=== PATIENT | male | born 1940 | race Caucasian/White ===

== ENCOUNTER → 2016-12-13 | Outpatient (CLI) | payer MEDICARE ==
[2016-12-13 07:10] LABS: MEAN CORPUSCULAR HEMOGLOBIN 30.9 pg (27.0-33.0); MEAN CORPUSCULAR HGB CONC 33.7 g/dl (32.0-36.5); MEAN CORPUSCULAR VOLUME 91.5 fl (80.0-96.0); WHITE BLOOD COUNT 7.2 K/mm3 (4.0-10.0)
[2016-12-13 07:35] LABS: ALBUMIN 3.6 GM/DL (3.2-5.2); ALKALINE PHOSPHATASE 65 U/L (45-117); ALT/SGPT 26 U/L (12-78); ANION GAP 7 MEQ/L (8-16); AST/SGOT 20 U/L (15-37); BILIRUBIN,TOTAL 0.6 MG/DL (0.2-1.0); BLOOD UREA NITROGEN 15 MG/DL (7-18); CALCIUM LEVEL 8.4 MG/DL (8.8-10.2); CARBON DIOXIDE LEVEL 30 MEQ/L (21-32); CHLORIDE LEVEL 106 MEQ/L (98-107); CHOLESTEROL LEVEL 112 MG/DL (<200); CREATININE FOR GFR 0.94 MG/DL (0.70-1.30); GLOMERULAR FILTRATION RATE > 60.0 (>42); GLUCOSE, FASTING 114 MG/DL (83-110); MAGNESIUM LEVEL 2.1 MG/DL (1.8-2.4); POTASSIUM SERUM 3.9 MEQ/L (3.5-5.1); SODIUM LEVEL 143 MEQ/L (136-145); TOTAL PROTEIN 7.2 GM/DL (6.4-8.2); TRIGLYCERIDES LEVEL 175 MG/DL (<150)
== END ==
LOC: M LAB 06:20
PROVIDERS: ATTEND Physician Assistant
DX: E78.00 Pure hypercholesterolemia, unspecified (principal); I10 Essential (primary) hypertension; I47.1 Supraventricular tachycardia

== ENCOUNTER 2017-02-06 09:16 | Emergency (ER) | payer MEDICARE ==
[~2017-02-06] VITALS: Ht 182.9 cm; Wt 90.7 kg
[2017-02-06] MEDS ORDERED: PHENYLEPHRINE 1% NASAL DROP 30 ML ONE (09:45)
[2017-02-06] MEDS ORDERED: LISI10TA4 (09:48)
[2017-02-06] MEDS ORDERED: TRAV04OPD (09:48)
[2017-02-06] MEDS ORDERED: DIGO0.25 (09:48)
[2017-02-06] MEDS ORDERED: SIMV20TA2 (09:49)
[2017-02-06] MEDS ORDERED: ATEN25TA (09:49)
[2017-02-06 11:42] LABS: BASO % 0.4 % (0.0-1.0); EOS # 0.1 K/mm3 (0.0-0.50); EOS % 1.4 % (0.0-3.0); LARGE UNSTAINED CELL # 0.2 K/mm3 (0.0-0.4); LARGE UNSTAINED CELL % 1.7 % (0.0-4.0); LYMPH # 1.4 K/mm3 (1.5-4.5); MEAN CORPUSCULAR HEMOGLOBIN 30.4 pg (27.0-33.0); MEAN CORPUSCULAR HGB CONC 33.7 g/dl (32.0-36.5); MONO # 0.7 K/mm3 (0.0-0.8); MONO % 7.8 % (0.0-5.0); NEUTROPHILS # 7.1 K/mm3 (1.8-7.7); NEUTROPHILS % 75.6 % (36.0-66.0); PLATELET COUNT, AUTOMATED 150 k/mm3 (150-450); RED CELL DISTRIBUTION WIDTH 13.9 % (11.5-14.5); WHITE BLOOD COUNT 9.4 K/mm3 (4.0-10.0)
[2017-02-06 11:47] LABS: INR 1.12
[2017-02-06 11:55] LABS: ANION GAP 9 MEQ/L (8-16); BLOOD UREA NITROGEN 18 MG/DL (7-18); CALCIUM LEVEL 8.4 MG/DL (8.8-10.2); CARBON DIOXIDE LEVEL 27 MEQ/L (21-32); CHLORIDE LEVEL 108 MEQ/L (98-107); CREATININE FOR GFR 0.76 MG/DL (0.70-1.30); GLOMERULAR FILTRATION RATE > 60.0 (>42); GLUCOSE, FASTING 102 MG/DL (83-110); POTASSIUM SERUM 3.9 MEQ/L (3.5-5.1); SODIUM LEVEL 144 MEQ/L (136-145)
[2017-02-06 12:59] VITALS: BP 144/83
[2017-02-06] MEDS ORDERED: METAL LOCK LOOP XX ONE (13:07)
== END 2017-02-06 13:00 | disposition home or self-care (01) ==
LOC: EDBD 09:16 → M ED 10:43
DX: R04.0 Epistaxis (principal)

== ENCOUNTER → 2017-04-19 | Outpatient (REF) ==
[~2017-04-19] MED LIST: ATEN25TA; DIGO0.25; LISI10TA4; SIMV20TA2; TRAV04OPD
[2017-04-19 10:56] LABS: MEAN CORPUSCULAR HEMOGLOBIN 30.4 pg (27.0-33.0); MEAN CORPUSCULAR VOLUME 92.2 fl (80.0-96.0)
[2017-04-19 11:09] LABS: ANION GAP 7 MEQ/L (8-16); BLOOD UREA NITROGEN 21 MG/DL (7-18); CALCIUM LEVEL 8.9 MG/DL (8.8-10.2); CARBON DIOXIDE LEVEL 30 MEQ/L (21-32); CHLORIDE LEVEL 106 MEQ/L (98-107); CREATININE FOR GFR 1.19 MG/DL (0.70-1.30); GLOMERULAR FILTRATION RATE > 60.0 (>42); GLUCOSE, FASTING 101 MG/DL (83-110); POTASSIUM SERUM 4.2 MEQ/L (3.5-5.1); SODIUM LEVEL 143 MEQ/L (136-145)
== END ==
PROVIDERS: ATTEND Internal Medicine
DX: I10 Essential (primary) hypertension (principal)

== ENCOUNTER → 2017-04-21 | Outpatient (REF) ==
[2017-04-21 13:11] LABS: MEAN CORPUSCULAR HEMOGLOBIN 30.6 pg (27.0-33.0); MEAN CORPUSCULAR HGB CONC 32.6 g/dl (32.0-36.5); WHITE BLOOD COUNT 9.8 K/mm3 (4.0-10.0)
== END ==
PROVIDERS: ATTEND Internal Medicine
DX: D72.89 Other specified disorders of white blood cells (principal)

== ENCOUNTER → 2017-04-26 | Outpatient (REF) ==
[2017-04-26 17:59] LABS: MEAN CORPUSCULAR HEMOGLOBIN 30.7 pg (27.0-33.0); MEAN CORPUSCULAR HGB CONC 33.3 g/dl (32.0-36.5); RED CELL DISTRIBUTION WIDTH 13.9 % (11.5-14.5); WHITE BLOOD COUNT 8.7 K/mm3 (4.0-10.0)
[2017-04-26 19:15] LABS: ANION GAP 6 MEQ/L (8-16); BLOOD UREA NITROGEN 19 MG/DL (7-18); CALCIUM LEVEL 8.6 MG/DL (8.8-10.2); CARBON DIOXIDE LEVEL 31 MEQ/L (21-32); CHLORIDE LEVEL 106 MEQ/L (98-107); CREATININE FOR GFR 1.03 MG/DL (0.70-1.30); GLOMERULAR FILTRATION RATE > 60.0 (>42); GLUCOSE, FASTING 131 MG/DL (83-110); POTASSIUM SERUM 3.4 MEQ/L (3.5-5.1); SODIUM LEVEL 143 MEQ/L (136-145)
== END ==
PROVIDERS: ATTEND Internal Medicine
DX: I10 Essential (primary) hypertension (principal)

== ENCOUNTER → 2017-07-04 | Outpatient (CLI) | payer MEDICARE ==
[2017-07-04 07:21] LABS: ALBUMIN 3.8 GM/DL (3.2-5.2); ALBUMIN/GLOBULIN RATIO 1.06 (1.00-1.93); ALKALINE PHOSPHATASE 75 U/L (45-117); ALT/SGPT 20 U/L (12-78); ANION GAP 5 MEQ/L (8-16); AST/SGOT 16 U/L (15-37); BILIRUBIN,TOTAL 0.4 MG/DL (0.2-1.0); BLOOD UREA NITROGEN 11 MG/DL (7-18); CALCIUM LEVEL 8.7 MG/DL (8.8-10.2); CARBON DIOXIDE LEVEL 30 MEQ/L (21-32); CHLORIDE LEVEL 108 MEQ/L (98-107); CREATININE FOR GFR 1.01 MG/DL (0.70-1.30); GLOMERULAR FILTRATION RATE > 60.0 (>42); GLUCOSE, FASTING 116 MG/DL (83-110); MAGNESIUM LEVEL 2.1 MG/DL (1.8-2.4); POTASSIUM SERUM 3.8 MEQ/L (3.5-5.1); SODIUM LEVEL 143 MEQ/L (136-145); TOTAL PROTEIN 7.4 GM/DL (6.4-8.2)
== END ==
LOC: M LAB 06:13
PROVIDERS: ATTEND Physician Assistant
DX: I10 Essential (primary) hypertension (principal); I47.1 Supraventricular tachycardia; E78.2 Mixed hyperlipidemia

== ENCOUNTER 2017-11-15 02:49 | Emergency (ER) | payer MEDICARE ==
[2017-11-15] MEDS: COCAINE 4% TOP SOLN 4 ML VIAL TOP ×2 (04:00→04:45)
== END 2017-11-15 05:37 | disposition home or self-care (01) ==
LOC: M ED 02:49
DX: R04.0 Epistaxis (principal); I10 Essential (primary) hypertension; E78.5 Hyperlipidemia, unspecified; Z87.891 Personal history of nicotine dependence; Z79.899 Other long term (current) drug therapy; Z88.5 Allergy status to narcotic agent; Z88.0 Allergy status to penicillin
CPT/HCPCS: 99283

== ENCOUNTER → 2019-03-06 | Outpatient (CLI) | payer MEDICARE ==
[~2019-03-06] MED LIST changes: +LOSA50TA88; +METO50TA7
--- NOTE | 2019-03-06 17:10 | REP ---
PET/CT: History: Initial staging malignant neoplasm of the esophagus. Comparisons: No comparison imaging available. TECHNIQUE: 55 minutes following the intravenous injection of a 9.69 mCi dose of F-18 FDG, three-dimensional PET scintigraphy is acquired from the skull base to the proximal thighs. Triplanar noncontrast CT scanning is acquired through the same anatomic range for attenuation correction, and image registration with scan parameters optimized to minimize radiation exposure to the patient. PET scintigraphy and CT datasets were fused and displayed on a workstation with multiplanar and projection display capability. PET/CT Findings: There is an elongate hypermetabolic circumferential lesion in the esophagus producing mural thickening. Maximum standard uptake value within this is 19.56. The span of hypermetabolic mural thickening measures 14.3 cm in craniocaudal span. There is a right subcarinal hypermetabolic adenopathy adjacent to the esophageal lesion. There is a small focus of hypermetabolic uptake in the distal esophagus away from this lesion which may be normal mucosal uptake, 3.38. However, there is a periaortic para-esophageal lymph node at the diaphragmatic hiatus, which is normal in size. It demonstrates mildly prominent uptake, maximum SUV value 2.2. No other upper abdominal hypermetabolic adenopathy is seen. There is a hypermetabolic liver lesion in the left lobe with a maximum standard uptake value 8.43. No other definite hypermetabolic liver lesion is seen. A no other abnormal hypermetabolic uptake is seen in the abdomen or pelvis. No abnormal pulmonary parenchymal uptake is seen. There is a hypermetabolic normal-sized lymph node in the left supraclavicular neck with maximum standard uptake value 4.82. Head and neck soft tissues are otherwise unremarkable. There is a hypermetabolic vertebral body lesion at the T7 vertebral body centrally. Maximum standard uptake value is 11.6. This is compatible with a skeletal metastasis. There are also two metastatic hypermetabolic foci in the right iliac bone. A small lesion in the iliac crest demonstrates maximum SUV value of 6.3. A slightly larger lesion in the right iliac bone opposite the superior aspect of the SI joint demonstrates a maximum standard uptake value of 8.94. Impression: The known large esophageal malignancy is quite hypermetabolic. There is evidence of paraesophageal/subcarinal adenopathy, possible hypermetabolic periesophageal adenopathy at the diaphragmatic hiatus, a left lobe liver lesion, and a small left supraclavicular neck snehal focus is seen. There are three skeletal hypermetabolic foci as well consistent with bony metastases. Electronically Signed by Clint Roberts MD 03/06/2019 05:22 P
== END ==
LOC: M PLARAD 11:19
PROVIDERS: ATTEND Surgery
DX: C15.5 Malignant neoplasm of lower third of esophagus (principal)
CPT/HCPCS: 78815; A9552

== ENCOUNTER 2019-03-12 22:50 | Emergency (ER) | payer MEDICARE ==
[~2019-03-12] VITALS: Ht 182.9 cm; Wt 75.0 kg
[~2019-03-12 22:50] MED LIST changes: -LOSA50TA88; +LOSA50TA88 PO; -METO50TA7; +METO50TA7 PO; -SIMV20TA2; +SIMV20TA2 PO
[2019-03-12 23:16] LABS: BASO # 0.1 10^3/uL (0.0-0.2); BASO % 0.5 % (0.0-1.0); EOS # 0.2 10^3/uL (0.0-0.50); EOS % 1.8 % (0.0-3.0); HEMATOCRIT 44.2 % (42.0-52.0); HEMOGLOBIN 14.6 g/dl (13.5-17.5); LYMPH # 1.9 10^3/uL (1.5-4.5); LYMPH % 19.6 % (24.0-44.0); MEAN CORPUSCULAR HEMOGLOBIN 30.3 pg (27.0-33.0); MEAN CORPUSCULAR VOLUME 91.7 fl (80.0-96.0); MONO # 1.1 10^3/uL (0.0-0.8); MONO % 11.2 % (0.0-5.0); NEUTROPHILS # 6.3 10^3/uL (1.8-7.7); NEUTROPHILS % 66.6 % (36.0-66.0); PLATELET COUNT, AUTOMATED 184 10^3/uL (150-450); RED BLOOD COUNT 4.82 10^6/uL (4.30-6.10); WHITE BLOOD COUNT 9.4 10^3/uL (4.0-10.0)
[2019-03-12 23:27] LABS: INR 0.95; PARTIAL THROMBOPLASTIN TIME 33.3 SECONDS (25.4-37.6); PROTHROMBIN TIME 12.8 SECONDS (12.1-14.4)
[2019-03-13] MEDS ORDERED: DIGO0.12 PO (00:41)
[2019-03-13] MEDS ORDERED: ZYLO300T6 PO (00:41)
[2019-03-13] MEDS ORDERED: SUCR1TAB56 (00:41)
[2019-03-13] MEDS ORDERED: METF500T13 PO (00:41)
[2019-03-13 02:12] VITALS: BP 146/85
[2019-03-13] MEDS ORDERED: ASPI81TA85 PO (08:54)
[2019-03-13] MEDS ORDERED: COLA100C5 PO (08:54)
[2019-03-13] MEDS ORDERED: DONETAB5 PO (09:07)
[2019-03-13] MEDS ORDERED: AMLO5TAB6 PO (09:07)
== END 2019-03-13 02:14 | disposition home or self-care (01) ==
LOC: M ED 22:50
DX: R04.0 Epistaxis (principal); C15.9 Malignant neoplasm of esophagus, unspecified; E11.9 Type 2 diabetes mellitus without complications; I10 Essential (primary) hypertension; C79.89 Secondary malignant neoplasm of other specified sites; C78.7 Secondary malignant neoplasm of liver and intrahepatic bile duct; C79.51 Secondary malignant neoplasm of bone; E78.5 Hyperlipidemia, unspecified; Z95.2 Presence of prosthetic heart valve; Z88.0 Allergy status to penicillin; Z88.5 Allergy status to narcotic agent; Z79.899 Other long term (current) drug therapy; Z79.84 Long term (current) use of oral hypoglycemic drugs; Z79.01 Long term (current) use of anticoagulants; Z85.46 Personal history of malignant neoplasm of prostate

== ENCOUNTER → 2019-03-13 | Outpatient (CLI) | payer MEDICARE ==
[~2019-03-13] MED LIST changes: +AMLO5TAB6 PO; +ASPI81TA85 PO; +COLA100C5 PO; +DIGO0.12 PO; +DONETAB5 PO; +GASTROGRAFIN SOLUTION 30ML (Q9963) As Ordered ONE; +ISOVUE-370 76% 100ML VIAL (Q9967) As Ordered ONE; +METF500T13 PO; +SUCR1TAB56; +ZYLO300T6 PO
--- NOTE | 2019-03-13 17:56 | REP ---
CT chest with IV contrast: History: Malignant neoplasm distal third of the esophagus Comparison chest CT study September 03, 2005. Comparison PET-CT study March 06, 2019. CT contrast dose: 100 ml of intravenous Isovue 370. CT findings: The proximal third of the thoracic esophagus is dilated and filled with ingested material. There is a nodular virtually annular neoplastic stricture in the esophagus beginning at the at the subcarinal level and extending for approximately 6 cm distally with nodular circumferential thickening and narrowing. There is a small quantity of ingested oral contrast in the distal esophageal lumen. Oral contrast is seen filling much of the stomach. There is an enlarged para-esophageal lymph node at the subcarinal level. This lymph node measures 2.6 x 1.7 x 3.3 cm. There is a hilar lymph node in the right hilus measuring 8 mm in short axis dimension. Normal sized superior paratracheal lymph nodes are seen. A normal sized left supraclavicular node is seen. No definite mediastinal adenopathy is seen apart from the para-esophageal nodes. There is a somewhat spherical lymph node adjacent to the gastroesophageal junction at the diaphragmatic hiatus. This lymph node measures 11 mm in greatest diameter and is seen to show mildly increased uptake on PET CT. No celiac axis adenopathy is observed. There is a low-density lesion in the left lobe of the liver measuring 1.8 cm consistent with a metastasis. Lung window settings demonstrate a benign everett fissural nodule along the minor fissure. No suspicious pulmonary nodule is appreciated. No mass or infiltrate is seen. No pleural or pericardial effusion is noted. There is a small radiolucency in the T7 vertebral body corresponding to the area of increased uptake on recent PET CT. Impression: There is an elongate malignant stricture in the middle third of the thoracic esophagus extending over at least 6 cm in craniocaudal span. There is a para esophageal enlarged lymph node and an equivocal node is seen at the GE junction and the para-esophageal soft tissues. This there is evidence of partial thoracic esophageal obstruction. A low-density lesion suspicious for metastasis is seen in the left lobe of the liver. There is a small low-density lesion in the T7 vertebral body. Electronically Signed by Clint Roberts MD 03/13/2019 08:16 P
--- NOTE | 2019-03-14 07:28 | REP ---
CT abdomen with IV and oral contrast: History: Malignant neoplasm of the distal esophagus. Comparison CT abdomen March 18, 2016. Comparison PET-CT study March 06, 2019. CT contrast dose: 100 ml of intravenous Isovue [address] findings: Preliminary digital pharmacology associate radiograph shows an unremarkable bowel gas pattern. There are calcifications projecting in the right upper quadrant. On axial CT images these calcifications on a from the pharmacology associate view are noted within the liver consistent with granuloma. There is a 18 mm low density lesion in the left lobe of the liver corresponding with the hyper metabolic lesion on PET-CT. This consistent with a metastasis. There is a tiny low density area near the dome of the diaphragm, 7 mm in diameter, in the right lobe medially. A granuloma is visible previously but neither of these low density lesions is visible on the [address] study. No other focal liver lesion is appreciated. There are small gallstones in the neck of the gallbladder. No wall thickening is seen. Common bile duct is not dilated. No intrahepatic ductal dilation is observed. There is a 1.0 cm cyst in the body of the pancreas which is unchanged from 2016 prior study. In addition, there is a 15 mm nodule along the inferior margin of the pancreatic tail. This is of uncertain significance. This area is not hypermetabolic on PET-CT. And intrapancreatic splenule could have this appearance. This is visible in retrospect on multiple prior CT studies with April 2008. It is not changed. This felt to be a benign lesion. No celiac axis or periportal adenopathy is appreciated. No retroperitoneal adenopathy is seen. The adrenal glands show no evidence of mass lesion. The kidneys contain small cortical cysts. There is a large calculus in the left renal pelvis measuring 1.5 cm in greatest diameter. No hydronephrosis is seen. Small and large intestinal bowel loops are unremarkable. No bony destructive lesion is seen. Impression: 1. There is a 18 mm presumed metastasis in the left lobe of the liver which is seen on recent PET-CT to be hypermetabolic. There is an additional 7 mm low density lesion in the right lobe of the liver. 2. Stable pancreatic cyst and nodule. There are some calcifications in the pancreatic head consistent with chronic pancreatitis. 3. There is a 14 mm calculus in the left renal pelvis without hydronephrosis. Electronically Signed by Clint Roberts MD 03/14/2019 09:09 A
== END ==
LOC: M RAD 11:52
PROVIDERS: ATTEND Surgery
DX: C15.5 Malignant neoplasm of lower third of esophagus (principal); N28.1 Cyst of kidney, acquired; K80.20 Calculus of gallbladder without cholecystitis without obstruction; K86.2 Cyst of pancreas; K76.89 Other specified diseases of liver
CPT/HCPCS: 71260; 74160; Q9963; Q9967

== ENCOUNTER → 2019-03-16 | Outpatient (CLI) | payer MEDICARE ==
[~2019-03-16] MED LIST changes: +BUPIVACAINE HCL 0.5% 10 ML VIAL As Ordered ONE; +CLINDAMYCIN 600 MG/50 ML PREMIX BAG As Ordered ONE; -GASTROGRAFIN SOLUTION 30ML (Q9963) As Ordered ONE; -ISOVUE-370 76% 100ML VIAL (Q9967) As Ordered ONE; +LIDOCAINE 2% MDV 20 ML VIAL As Ordered ONE; +ceFAZolin 1GM INJ (J0690 PER 500MG) As Ordered ONE
--- NOTE | 2019-03-28 10:57 | REPIR ---
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 SURGEON: Dr. Clau Box DIRECTOR RADIATION ONCOLOGY: None. ANESTHESIA: Local ESTIMATED BLOOD LOSS: Minimal. IV FLUIDS: 50 mL. FLUORO TIME: 0.1 minutes. COMPLICATIONS: None. DRAINS: None. SPECIMENS: None IMPLANTS: Port-A-Cath. INDICATION: The patient is an 78-year-old male with esophageal cancer with bone and liver metastases who requires access for chemotherapy. The patient will undergo placement of a Port-A-Cath. Risks, benefits and alternative options were discussed with the patient. DESCRIPTION OF PROCEDURE: The patient was taken to the angiography suite, placed supine on the angiography room table and then prepped and draped in a standard surgical fashion. The right internal jugular was cannulated with a micropuncture needle using ultrasound guidance. The port was placed in the chest and the catheter tunneled from the port to the entry site of the right internal jugular vein. The internal jugular vein was dilated under fluoroscopic guidance and the introducer sheath was positioned. The catheter was advanced through the introducer sheath in position with the tip in the superior vena cava right atrial junction. Port was then cannulated, noted to aspirate easily and flushed with heparinized saline. The incisions were closed using #3-0 Monocryl in inverted interrupted fashion. Steri-Strips and dressings were applied. The patient tolerated the procedure well. All instrument, sponge and needle counts were correct at the end of the case. There were no complications. Dr. Box was present for directed the entire case. The patient was transferred to the holding and subsequently discharged in stable condition.
== END | disposition home or self-care (01) ==
LOC: M IRPRO 10:56
PROVIDERS: ATTEND Internal Medicine Medical Oncology
DX: C15.9 Malignant neoplasm of esophagus, unspecified (principal); C78.7 Secondary malignant neoplasm of liver and intrahepatic bile duct; C79.51 Secondary malignant neoplasm of bone
CPT/HCPCS: 36561; 77001; C1788; C1894

== ENCOUNTER → 2019-04-06 | Outpatient (CLI) | payer MEDICARE ==
[~2019-04-06] MED LIST changes: -BUPIVACAINE HCL 0.5% 10 ML VIAL As Ordered ONE; -CLINDAMYCIN 600 MG/50 ML PREMIX BAG As Ordered ONE; +E-Z-GAS II EFFERVESCENT PACKET (SODIUM BICARB./CITRIC ACID/SIMETHICONE) As Ordered ONE; +E-Z-HD 98% w/w 340GM SUSP BTL As Ordered ONE; +E-Z-PAQUE 96% w/w SUSP 176GM BTL As Ordered ONE; -LIDOCAINE 2% MDV 20 ML VIAL As Ordered ONE; -ceFAZolin 1GM INJ (J0690 PER 500MG) As Ordered ONE
--- NOTE | 2019-04-06 17:26 | REP ---
Esophagram The procedure was performed under the direct supervision of Dr. Roberts. The images were reviewed with Dr. Roberts. A single view PA chest x-ray is submitted as a mail carrier film. The superior mediastinal structures are midline. The heart size is within normal limits. The lungs are clear. The patient is status post median sternotomy and valve replacement. There is an [id number] in place with the tip in the superior vena cava. Liquid barium was administered in the right and left lateral recumbent positions. During the oral and pharyngeal stages of deglutition there is laryngeal penetration. There is a tight stricture in the mid esophagus with elongated wall thickening in the anterior wall of the esophagus. The stricture measures approximately 2.3 cm in length and 2.2 mm at its narrowest. This causes moderate esophageal obstruction. There is some contrast seen advancing distally into the stomach. Impression: 1. There is laryngeal penetration or area 2. There is a stricture in the mid esophagus which causes moderate esophageal obstruction. This measures 2.3 cm in length and 2.2 mm at its narrowest. There is also elongated wall thickening in the anterior wall of the esophagus proximally. 1.3 minutes of fluoro time was utilized for this procedure. Reviewed by THALIA Tavares 04/06/2019 01:19 P Electronically Signed by Clint Roberts MD 04/06/2019 05:17 P
== END ==
LOC: M RAD 08:28
PROVIDERS: ATTEND Internal Medicine Gastroenterology
DX: K22.2 Esophageal obstruction (principal)

== ENCOUNTER 2019-04-11 10:07 | Day surgery (SDC) | payer MEDICARE ==
[~2019-04-11] VITALS: Ht 182.9 cm; Wt 68.4 kg
[~2019-04-11 10:07] MED LIST changes: -E-Z-GAS II EFFERVESCENT PACKET (SODIUM BICARB./CITRIC ACID/SIMETHICONE) As Ordered ONE; -E-Z-HD 98% w/w 340GM SUSP BTL As Ordered ONE; -E-Z-PAQUE 96% w/w SUSP 176GM BTL As Ordered ONE; +LR 1,000 ML IV ONE
[2019-04-11] MEDS ORDERED: PROPOFOL 200 MG/20 ML VIAL As Ordered ONE (12:23)
[2019-04-11] MEDS ORDERED: LIDOCAINE 2% INJ 100 MG/5 ML SDV (FOR ANES.) As Ordered ONE (12:23)
[2019-04-11] MEDS ORDERED: CONRAY-60 60% 50ML VIAL (Q9961) As Ordered ONE (12:56)
[2019-04-11] MEDS ORDERED: ISOVUE-300 61% 50ML VIAL (Q9967) As Ordered ONE (12:57)
[2019-04-11] MEDS ORDERED: ROCURONIUM BROMIDE 50 MG/5 ML VIAL As Ordered ONE (12:59)
[2019-04-11] MEDS ORDERED: PHENYLephrine HCL 500 MCG/5 ML (100MCG/ML) SYRINGE (J2370) As Ordered ONE (13:06)
[2019-04-11] MEDS ORDERED: ONDANSETRON 4MG/2ML VIAL (J2405) IV PRN (14:15)
[2019-04-11] MEDS ORDERED: LR 1,000 ML IV SCH (14:15)
--- NOTE | 2019-04-11 14:21 | ROOR ---
Patient Name: Emmett Whitmore Procedure Date: 04/11/2019 12:27 PM Date of : 1940 Age: 78 Room: Main OR Gender: Male Note Status: Design Director Override Procedure: Upper GI endoscopy Indications: For palliative stenting of stenosing neoplasm of the esophagus, For dilation and stenting of esophageal stenosis Providers: Shiv Arroyo MD Referring MD: BOB MASSEY MD Requesting Provider: Medicines: Monitored Anesthesia Care Complications: No immediate complications. Procedure: Pre-Anesthesia Assessment: - Prior to the procedure, a History and Physical was performed, and patient medications and allergies were reviewed. The patient is competent. The risks and benefits of the procedure and the sedation options and risks were discussed with the patient. All questions were answered and informed consent was obtained. Patient identification and proposed procedure were verified by the physician, the nurse and the anesthesiologist in the procedure room. Mental Status Examination: alert and oriented. Airway Examination: normal oropharyngeal airway and neck mobility. Respiratory Examination: clear to auscultation. CV Examination: normal. Prophylactic Antibiotics: The patient does not require prophylactic antibiotics. Prior Anticoagulants: The patient has taken no previous anticoagulant or antiplatelet agents. ASA Grade Assessment: III - A patient with severe systemic disease. After reviewing the risks and benefits, the patient was deemed in satisfactory condition to undergo the procedure. The anesthesia plan was to use monitored anesthesia care (MAC). Immediately prior to administration of medications, the patient was re-assessed for adequacy to receive sedatives. The heart rate, respiratory rate, oxygen saturations, blood pressure, adequacy of pulmonary ventilation, and response to care were monitored throughout the procedure. The physical status of the patient was re-assessed after the procedure. The Endoscope was introduced through the mouth, and advanced to the second part of duodenum. The upper GI endoscopy was accomplished without difficulty. The patient tolerated the procedure well. The Endoscope was introduced through the mouth, and advanced to the lower third of esophagus. Findings: A large, ulcerating mass with no bleeding and stigmata of recent bleeding was found in the middle third of the esophagus, 28 to 38 cm from the incisors. The mass was partially obstructing and circumferential. This was stented with [employer] [place] covered metal stent [id number] under fluoroscopic guidance, proximal margin at 26 cm and distal margin at 38 cm from the incisors. A TTS dilator was passed through the scope. Dilation with an 8-9-10 mm balloon dilator was performed to 10 mm under fluoroscopic guidance. The dilation site was examined following endoscope reinsertion and showed moderate improvement in luminal narrowing. No gross lesions were noted in the entire examined stomach. Patchy mild inflammation characterized by erythema and granularity was found in the duodenal bulb and in the second portion of the duodenum. Impression: - Partially obstructing, malignant esophageal tumor was found in the middle third of the esophagus. Prosthesis placed. Dilated. - No gross lesions in the stomach. - Duodenitis. - No specimens collected. Recommendation: - Patient has a contact number available for emergencies. The signs and symptoms of potential delayed complications were discussed with the patient. Return to normal activities tomorrow. Written discharge instructions were provided to the patient. - Full liquid diet for 2 days, then advance as tolerated to mechanical soft diet. - Use Prilosec (omeprazole) 40 mg PO Daily - to be taken ignition specialist on empty stomach for 8 weeks. - Follow an antireflux regimen. - Return to referring physician as previously scheduled. - Telephone GI clinic if symptomatic in 2 weeks. - Return to GI clinic if persistent symptoms or new symptoms. - Return to primary care physician. Shiv Arroyo MD Shiv Arroyo MD 04/11/2019 2:20:49 PM Electronically signed by Shiv Arroyo MD Number of Addenda: 0 Note Initiated On: 04/11/2019 12:27 PM Estimated Blood Loss: Estimated blood loss was minimal.
--- NOTE | 2019-04-11 15:24 | REP ---
C-ARM VIEWS OF THE THORAX: Multiple C-arm views of the thorax during procedure of the esophagus demonstrates catheter manipulation and visualization of a scope. 19 seconds of fluoroscopy time is utilized. Electronically Signed by Karl Leigh MD 04/12/2019 12:33 P
[2019-04-11 15:55] VITALS: BP 168/92
== END 2019-04-11 16:43 | disposition home or self-care (01) ==
LOC: M SDC 10:07
PROVIDERS: ATTEND Internal Medicine Gastroenterology
DX: C15.5 Malignant neoplasm of lower third of esophagus (principal); I10 Essential (primary) hypertension; E78.5 Hyperlipidemia, unspecified; K21.9 Gastro-esophageal reflux disease without esophagitis; K22.2 Esophageal obstruction; K29.80 Duodenitis without bleeding; Z85.46 Personal history of malignant neoplasm of prostate; Z92.21 Personal history of antineoplastic chemotherapy; Z92.3 Personal history of irradiation; Z79.899 Other long term (current) drug therapy; Z79.82 Long term (current) use of aspirin; Z87.891 Personal history of nicotine dependence; Z88.0 Allergy status to penicillin; Z88.5 Allergy status to narcotic agent
CPT/HCPCS: 43266; 76000; 96365; C1874; J1642; J2370

== ENCOUNTER 2019-04-18 13:21 | Outpatient (RCR) | payer MEDICARE ==
[2019-03-13 08:45] VITALS: BP 137/81
[2019-03-13 10:00] LABS: HEMATOCRIT 43.5 % (42.0-52.0); HEMOGLOBIN 14.4 g/dl (13.5-17.5); LYMPH % 16.7 % (24.0-44.0); MEAN CORPUSCULAR HEMOGLOBIN 30.9 pg (27.0-33.0); MEAN CORPUSCULAR HGB CONC 33.1 g/dl (32.0-36.5); MEAN CORPUSCULAR VOLUME 93.3 fl (80.0-96.0); NEUTROPHILS # 6.5 10^3/uL (1.8-7.7); NEUTROPHILS % 74.8 % (36.0-66.0); RED BLOOD COUNT 4.66 10^6/uL (4.30-6.10); WHITE BLOOD COUNT 8.7 10^3/uL (4.0-10.0)
[2019-03-13 10:37] LABS: BLOOD UREA NITROGEN 11 MG/DL (6-20); CALCIUM LEVEL 9.2 MG/DL (8.5-10.2); CARBON DIOXIDE LEVEL 30 MEQ/L (23-31); CHLORIDE LEVEL 101 MMOL/L (98-107); CREATININE FOR GFR 0.95 MG/DL (0.90-1.30); GLOMERULAR FILTRATION RATE > 60.0 (>35); GLUCOSE, FASTING 109 MG/DL (70-105); POTASSIUM SERUM 3.8 MMOL/L (3.5-5.1); SODIUM LEVEL 139 MMOL/L (135-145); TOTAL PROTEIN 6.7 GM/DL (6.4-8.3)
[2019-03-15 08:23] VITALS: BP 143/87
--- NOTE | 2019-03-15 08:35 | MEDONC ---
MEDICAL ONCOLOGY INITIAL VISIT: DATE OF SERVICE: 03/13/2019. DIAGNOSIS: Emmett Morejon is an 78-year-old man with multiple medical problems. 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 Referred by Noah Horvath MD for medical oncology management. HISTORY OF PRESENT ILLNESS: At baseline Mr. 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 He has Parkinson's disease, remote history of 10 pack-year smoking, status post AVR in 2017. For 6 months he gradually developed dysphagia to liquids and solids. He has had a small associated weight loss. A barium esophagram 02/07/2019 showed a mid esophageal apple core lesion, measuring 3.9 cm at the level of the 10th thoracic vertebrae and a small hiatal hernia. Noncontrast abdomen and pelvis CT showed no mass. He saw Dr. Su who had referred who referred him for upper endoscopy and ultrasound, noting his frail status. He has dementia as well. EGD biopsy 02/16/2019 confirms poorly differentiated adenocarcinoma, HER2/jacinta negative, noting a mid esophageal mass. PET CT 03/06/2019 showed multiple hypermetabolic foci includin cm craniocaudal circumferential esophageal lesion SUV 19, right subcarinal lymph node adjacent to the lesion, paraesophageal node at the diaphragmatic hiatus, left liver focus of uptake SUV 8, left supraclavicular focus SUV 4.8, and T7 and right iliac foci with high SUV consistent with distant metastatic disease. Mr. Whitmore is here today accompanied by his son, Emmett and brother and Reynaldo. He had seen Dr. Montana last week and radiation was recommended. Primary care doc is Tasneem Gutierrez. Mr. Whitmore complains of difficulty swallowing solids and is using Ensure. He still gets some mucus collection and needs to cough them up. He acknowledges slight weight loss. Denies sweats, fevers, headache, visual disturbance, shortness of breath, cough. He gets occasional leg swelling in the morning but this resolved. His brother and son acknowledge memory issues. He denies hemoptysis or hematemesis. PAST MEDICAL HISTORY: Dementia, Parkinson's disease, hypertension, aortic insufficiency. Type 2 diabetes, gout. PAST SURGICAL HISTORY: Bioprosthetic AVR 2017, herniorrhaphy. ALLERGIES: [facility], Penicillin, morphine. MEDICATIONS: Allopurinol 300 mg daily, amlodipine 5 mg daily, aspirin 81 mg daily, digoxin 125 mcg daily, docusate 100 mg daily, benazepril 5 mg daily, losartan 50 mg daily, lisinopril 10 mg daily, metformin 100 mg twice a day, metoprolol tartrate 50 mg daily, simvastatin 20 mg daily, sucralfate 1 gram daily, travoprost solution drops. ion drops please go back to SOCIAL HISTORY: The patient is an ever smoker. 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 FAMILY HISTORY: A brother of lung cancer was a smoker. No other malignancy. REVIEW OF SYSTEMS: 12 system written review completed by the patient. Positive for 15-pound weight loss, increased fatigue vision, vision changes, hearing loss, occasional exertional dyspnea, heartburn, urinary incontinence, loss of strength or memory increased thirst and fatigue. Remainder of 12 system review is negative. PHYSICAL EXAMINATION: Height 6 feet, weight 76 kg, BMI 23, temperature 97.2, blood pressure 137/81, heart rate 64, respiratory 18, O2 sat 97%. Patient is a tall robust appearing older gentleman with a somewhat still unmoving posture and occasionally making eye contact referring to his brother and son for some answers. Is a modestly good historian. Respiratory: Clear lungs to auscultation bilaterally anterior and posteriorly. No wheezes or rales. Cardiac: S1-S2, 2/6 systolic murmur. Abdomen: Soft, nontender, nondistended, no palpable hepatosplenomegaly. No mass. No epigastric tenderness. Extremities: No edema. Lymph nodes no palpable submandibular, cervical, supraclavicular or axillary adenopathy bilaterally. Musculoskeletal: No vertebral or sternal tenderness to percussion. LABS: WBC 8.7, hemoglobin 14, hematocrit 43, platelets 194. Differential unremarkable. Electrolytes normal. Liver functions normal. Albumin 4.0. CA19-9 30. IMPRESSION: Clinical stage IV, TXMXM1, poorly differentiated adenocarcinoma of esophagus involving mid distal esophageal lesion, regional adenopathy, bone and liver metastases low volume on PET. HER2 negative; PDL an MMR status unknown. RECOMMENDATIONS: 1. Obtain PD-L1 an MMR status on current pathology. 2. I spoke at length with Mr. Whitmore and his family about his current working diagnosis of stage IV esophageal cancer. I emphasized this is not curable; treatment is palliative aimed at minimizing symptoms and prolonging life. I was steph that his life expectancy is on the order of 1-2 years at most more and without treatment 6-12 months. Palliative chemotherapy could be as gentle as a single agent Taxol weekly to a as complex as chemo radiation. Given his other comorbidities and in particular parkinsonism putting him at some risk based on reduced in the axial rigidity and trouble with secretions, for aspiration pneumonia. I am somewhat concerned that toxicity of radiation might out way the benefit in the short-term and that systemic therapy might achieve the same end of shrinking the tumor allowing good swallowing and nourishment, reserving radiation as a salvage effort later. I spoke frankly to the patient and his family about these potential options and recommended no definitive plan be made until the case is discussed in tumor board, tomorrow when I can meet with Dr. Montana and the multidisciplinary team and discussed options. I am leaning toward palliative single or stool or double agent chemotherapy on a weekly treatment schedule such as carboplatin and Taxol or single-agent Taxol weekly attempting to resolve the dysphagia and allow nutrition. We turned attention to the possible need for a MediPort and possible need for percutaneous endoscopic gastrostomy tube. I answered the patient and family's questions about both of these. We agreed that we would meet up again later this week after tumor board discussion to finalize recommendations based on his preferences. Time statement 60 minutes spent [id number] with the patient more than 50% above the counseling, read explanation of the issues outlined above, answering the patient's questions. Electronically Signed by Ella Turcios MD 03/16/2019 02:38 P DD: Ella Turcios MD 03/13/2019 06:02 P DT: [email or web address] 03/15/2019 08:09 A CC: MD Noah Malin MD
--- NOTE | 2019-03-19 10:16 | MEDONC ---
MEDICAL ONCOLOGY FOLLOWUP DATE OF SERVICE: 03/15/2019 DIAGNOSIS: Stage IV, TxNxM1, poorly differentiated adenocarcinoma of esophagus involving mid - distal esophageal lesion, HER2/jacinta negative, with regional adenopathy, bone and liver metastases (low volume). PD-L1 and MMR status pending. ECOG performance status 1 to 2, closer to 1. OTHER MEDICAL PROBLEMS: Mild dementia, Parkinson disease, hypertension, aortic insufficiency, status post AVR, type 2 diabetes, gout. CURRENT THERAPY: Treatment planning underway. Mr. Whitmore returns after his initial visit earlier this week. Tumor board was held yesterday discussing his case. A solitary hypermetabolic liver and some thoracic and iliac hypermetabolic sites were seen on PET. In tumor board, we discussed starting palliative chemotherapy and reserving radiation for salvage treatment. PEG tube placement was also discussed but not strongly recommended up front. The entirety of today's visit was spent discussing the results of tumor board, treatment options, and answering the patient's and family's questions. First, I recommended combination chemotherapy with oxaliplatin and 5-FU as demonstrated to provide a rapid response and good quality of life with low toxicity in the elderly population. For the present, I would hold radiation to minimize radiation associated toxicity. 2. For this a Mediport would need to be placed. We can think about placing PEG tube soon, but already Mr. Whitmore has asserted that he does not want to use a PEG tube. My experience with patients who do not want to use PEG tubes is that they often do not and the time spent getting the PEG tube placed may not be worth the benefit if it is inimical to the patient. I reviewed risks, benefits, side effects of oxaliplatin and 5-FU, schedule as follows: Neuropathy, diarrhea, hand-foot syndrome, mild myelosuppression, nausea, possibility of hair thinning, possible hair loss. I explained how the MediPort is placed and that it would require a visit to a surgeon first followed by the procedure. I explained the use of continuous IV infusion pump for 24 hours. The schedule would be treatment every 14 days, with or without G-CSF support depending on WBC count. Mr. Whitmore, his brother and son had many astute questions, all which I answered to the best of my ability and they expressed satisfaction with these answers. I discussed alternatives for example no chemotherapy, or other regimens. It may take quite awhile to obtain PD-L1 results. I have checked with pathology at [facility] and this is not yet available. MMR results may be coming in soon. If immunotherapy is an option that makes sense, we could switch gears and plan for up front immunotherapy in combination with chemotherapy as a possibility but this may need to be a salvage option. We discussed goals of therapy to improve swallowing and quality of life through ability to eat and maintain weight, minimize problems with managing secretions. Another tumor board recommendation was to explore the possibility of a stent and I will contact GI about this. IMPRESSION: Stage IV, TxNxM1 esophageal adenocarcinoma, poorly differentiated, HER2/jacinta negative, MMR and PD-L1 status pending in an 78-year-old man, ECOG performance status 1 with Parkinson's disease, mild dementia, hypertension, aortic insufficiency, status post AVR, diabetes but with generally excellent quality of life prior to onset of esophageal obstruction symptoms. Labs are excellent. No renal insufficiency. No significant anemia. PLAN: 1. Written informed consent for oxaliplatin and 5-FU was obtained. If our plan changes of course we will revise consent. 2. MediPort placement as soon as possible. 3. Return to clinic to begin oxaliplatin / 5-FU q. 14 days as palliative first-line treatment for stage IV esophageal cancer. Time statement: 45 minutes spent [id number] with the patient, more than 50% involved in counseling regarding all of the issues detailed above. Electronically Signed by Ella Turcios MD 03/19/2019 05:18 P DD: Ella Turcios MD 03/15/2019 10:03 A DT: [email or web address] 03/19/2019 09:30 A CC: Tasneem Gutierrez MD
[2019-03-22 09:10] VITALS: BP 119/74
[2019-03-22 09:18] LABS: HEMATOCRIT 40.7 % (42.0-52.0); HEMOGLOBIN 13.4 g/dl (13.5-17.5); LYMPH % 11.2 % (24.0-44.0); MEAN CORPUSCULAR HEMOGLOBIN 30.9 pg (27.0-33.0); MEAN CORPUSCULAR HGB CONC 32.9 g/dl (32.0-36.5); MEAN CORPUSCULAR VOLUME 93.7 fl (80.0-96.0); NEUTROPHILS # 9.4 10^3/uL (1.8-7.7); RED BLOOD COUNT 4.34 10^6/uL (4.30-6.10); WHITE BLOOD COUNT 11.6 10^3/uL (4.0-10.0)
[2019-03-22 09:38] LABS: ALBUMIN 3.9 GM/DL (3.5-5.2); BLOOD UREA NITROGEN 11 MG/DL (6-20); CALCIUM LEVEL 9.3 MG/DL (8.5-10.2); CARBON DIOXIDE LEVEL 29 MEQ/L (23-31); CHLORIDE LEVEL 105 MMOL/L (98-107); CREATININE FOR GFR 0.85 MG/DL (0.90-1.30); GLUCOSE, FASTING 114 MG/DL (70-105); POTASSIUM SERUM 3.8 MMOL/L (3.5-5.1); SODIUM LEVEL 140 MMOL/L (135-145)
[2019-03-22 09:39] LABS: GLOMERULAR FILTRATION RATE > 60.0 (>35)
--- NOTE | 2019-03-23 10:07 | MEDONC ---
MEDICAL ONCOLOGY FOLLOWUP/TREATMENT VISIT DATE OF SERVICE: 03/22/2019 DIAGNOSIS: Stage IV, TxNxM1 poorly differentiated adenocarcinoma of esophagus involving mid-distal esophageal lesion, quite extensive, circumferential, HER2 negative with regional adenopathy, bone and liver metastases (low volume). MMR stable, PD-L1 status pending. ECOG performance status 1-2. OTHER MEDICAL PROBLEMS: Mild dementia. Parkinson's disease, moderate. Hypertension. Aortic insufficiency. Status post AVR. Type 2 diabetes. Gout. CURRENT THERAPY: Emmett is here to begin oxaliplatin/5-FU q. 14 days palliative systemic therapy. [facility] referral underway for potential stent placement. INTERIM HISTORY: Mr. Whitmore is here accompanied by his son, Emmett and brother Reynaldo. Mediport was placed. He is managing that okay. I talked to him about potential esophageal stent as one of the fastest ways for him to be able to begin swallowing again. He is having difficulties with regurgitation, appears to have a poor cough reflex likely secondary to some parkinsonism which involves fairly stiff posture, slow slight cogwheeling movements. He is nonetheless cheerful and ironic, joking frequently. He is trying his best with Boost, Ensure. We talked about using straw for thin liquids to avoid aspiration. We discussed PEG tube, but he has adamantly said he does not want that and my concern is taking time to have it placed and having him under use it with no success in achieving good nourishment. Dr. Arroyo of GI will see him this afternoon after his first chemotherapy treatment and yesterday I alerted him to the patient so he will have reviewed the films. If stenting is not feasible, will pursue PEG tube placement and PEG feeds. I reviewed again the current treatment plan involving oxaliplatin 85 mg per meter squared day 1, leukovorin 200 mg per meter squared day 1, and 5-FU 2600 mg per meter squared b.i.d. first 24 hours. The patient will return on day two over three to return his pump. Should he develop significant leukopenia will support with G-CSF. I reviewed potential risks, benefits and side effects including diarrhea, neuropathy, cold sensitivity. VITAL SIGNS: Weight is stable 76 kg, afebrile. Normal blood pressure. LABORATORY DATA: WBC 11, hemoglobin 13, hematocrit 40, platelets 211, creatinine 0.85, BUN 11, normal electrolytes, normal liver functions. 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 PLAN: 1. Day 1 cycle one oxaliplatin/5-FU today. 2. One week interval return for reassessment with labs and IV fluids. 3. IV fluids 1000 mL normal saline today given the patient's increasing difficulty with oral intake. 4. [facility] consult today for consideration for esophageal stent. TIME STATEMENT: 30 minutes was spent [id number] with the patient, more than 50% involved in counseling, reviewing particulars of the regimen, discussing nutrition, possible esophageal stent, PEG tube, answering the patient and his family's questions. Electronically Signed by Ella Turcios MD 03/26/2019 05:05 P DD: Ella Turcios MD 03/22/2019 04:27 P DT: [email or web address] 03/23/2019 09:54 A CC: MD Tasneem Kahn MD
[2019-03-29 10:06] LABS: HEMATOCRIT 44.2 % (42.0-52.0); HEMOGLOBIN 14.4 g/dl (13.5-17.5); LYMPH % 5.4 % (24.0-44.0); MEAN CORPUSCULAR HEMOGLOBIN 30.7 pg (27.0-33.0); MEAN CORPUSCULAR HGB CONC 32.6 g/dl (32.0-36.5); MEAN CORPUSCULAR VOLUME 94.2 fl (80.0-96.0); NEUTROPHILS # 26.7 10^3/uL (1.8-7.7); NEUTROPHILS % 87.4 % (36.0-66.0); RED BLOOD COUNT 4.69 10^6/uL (4.30-6.10)
[2019-03-29 10:07] LABS: WHITE BLOOD COUNT 30.5 10^3/uL (4.0-10.0)
[2019-03-29 10:15] VITALS: BP 148/95
[2019-03-29 10:18] LABS: ALBUMIN 3.8 GM/DL (3.5-5.2); BLOOD UREA NITROGEN 16 MG/DL (6-20); CALCIUM LEVEL 9.3 MG/DL (8.5-10.2); CARBON DIOXIDE LEVEL 28 MEQ/L (23-31); CHLORIDE LEVEL 103 MMOL/L (98-107); CREATININE FOR GFR 0.82 MG/DL (0.90-1.30); GLOMERULAR FILTRATION RATE > 60.0 (>35); GLUCOSE, FASTING 121 MG/DL (70-105); POTASSIUM SERUM 3.3 MMOL/L (3.5-5.1); SODIUM LEVEL 141 MMOL/L (135-145); TOTAL PROTEIN 6.9 GM/DL (6.4-8.3)
--- NOTE | 2019-04-02 08:33 | MEDONC ---
MEDICAL ONCOLOGY FOLLOWUP DATE OF SERVICE: 03/29/2019 DIAGNOSIS: Stage IV, TXNXM1, poorly differentiated esophageal adenocarcinoma involving extensive circumferential mid-distal esophageal mass, HER2/jacinta negative with near total obstruction, regional adenopathy, low volume bone and liver metastases, MMR stable, PD-L1 combined positive score greater than 1 (positive). OTHER MEDICAL PROBLEMS: Moderate dementia/Alzheimer disease. Parkinson disease, moderate. Hypertension. Aortic insufficiency. Status post AVR. Type 2 diabetes. Gout. CURRENT THERAPY: Oxaliplatin/5-FU q. 14 days day one cycle of one 03/22/2019. (This was begun in the absence of knowledge of PD-L1 status.) INTERVAL HISTORY: This is 1-week followup after starting chemotherapy. Mr. Whitmore and his brother are here initially without their son, Emmett. Neither could recall whether he had seen yet Dr. Arroyo of gastroenterology, but Emmett later appeared. They were not able to get to the appointment scheduled for later the afternoon of starting chemotherapy and it was rescheduled for this next week. I encouraged him strongly to make sure he gets to the appointment. Mr. Whitmore has repeatedly refused to use of PEG, does not have help at home, his son is somewhat involved but there is not someone to oversee feeding, his brother Reynaldo though clearly quite concerned does not appear able to handle details. Emmett is somewhat stubborn about decisions and allowing help. It is clear from what he tells me and his brother and son tells me he has not been eating very much, trying without success to consume solid foods such as sandwiches and so forth. Though I have encouraged using a straw sipping Gatorade for electrolytes and fluids, and sticking to pureed type foods or thick fluids. He notes a little dizziness when getting up and blood pressure today is on the lower side. He denies hand-foot symptoms, neuropathy symptoms, ear ringing or falls. He denies diarrhea. REVIEW OF SYSTEMS: Pertinent positives and negatives as noted above. In addition, the patient denies fever or chills. PHYSICAL EXAMINATION: Weight 72 kg, down 4 kg. Temperature 97.3, blood pressure 148/95, heart rate 88, respiratory 20. O2 sat 94%. Patient is a somewhat frail appearing older gentleman with a resting tremor, mild cogwheel rigidity on getting out of chair to examining table. Nevertheless, quips and makes various jokes in answer to most questions. Respiratory: Clear lungs to auscultation bilaterally anteriorly and posteriorly. Cardiac: S1, S2. 2/6 systolic murmur. Abdomen: Nontender, soft, nondistended. Extremities: 1+ pedal edema ankles only, symmetric. Lymph nodes: No submandibular, cervical, supraclavicular or axillary adenopathy bilaterally. LABORATORY DATA: WBC 30.5 (received Neulasta 1 week ago). Hemoglobin 14, hematocrit 44, platelets 209. Electrolytes notable for potassium 3.3, otherwise normal. BUN 16, creatinine 0.8, GFR greater than 60, glucose 121. Liver functions normal, alk phos 177. Baseline CA 19-9 30.6. IMPRESSION: Stage IV poorly differentiated, HER2/jacinta negative, MMR stable and now known to be PD-L1 positive esophageal adenocarcinoma involving near obstructing mid-distal esophageal mass, low volume liver and bone metastases status post 5-FU, oxaliplatin 1 week ago. Almost complete dysphagia to solids, moderate dysphagia to liquids with cognitive limitations on self-managing nutrition. ECOG performance status 2. PLAN: 1. I exhorted the patient's family to actively follow Mr. Whitmore daily to make sure that he is eating and gets to appointments. 2. I got our nurse navigators involved to help handhold this and navigate this multimodality care. He needs esophageal stenting if feasible as soon as possible. 3. I cautioned Mr. Whitmore and his family that if stenting is not feasible PEG tube should be considered if he wants to continue with treatment. 4. I also addressed hospice care as an option and palliation alone as options. He is very anxious to eat. This seems to be a major quality of life issue and stenting at least seems an appropriate palliative maneuver. 5. Radiation can be considered if he is unable to tolerate or does not have a response to chemotherapy. 6. Consider therapy changed to include immunotherapy given PD-L1 positive status now shown. 7. IV fluid 1 liter D5 normal saline today. 8. Return to clinic 1 week for day one cycle two oxaliplatin/5-FU, reassess hydration status and in the interval our nurse navigators will help Mr. Whitmore and the family. TIME STATEMENT: 40 minutes [id number] with the patient, more than 50% involved in extensive explanations, question answering, recommendations as outlined above. Electronically Signed by Ella Turcios MD 04/03/2019 07:00 P DD: Ella Turcios MD 03/30/2019 04:54 P DT: [email or web address] 04/02/2019 08:07 A CC: MD Tasneem Kahn MD
[2019-04-05 09:12] VITALS: BP 137/91
[2019-04-05 09:14] LABS: HEMATOCRIT 42.5 % (42.0-52.0); HEMOGLOBIN 14.1 g/dl (13.5-17.5); LYMPH % 6.1 % (24.0-44.0); MEAN CORPUSCULAR HGB CONC 33.2 g/dl (32.0-36.5); MEAN CORPUSCULAR VOLUME 93.5 fl (80.0-96.0); NEUTROPHILS # 18.4 10^3/uL (1.8-7.7); NEUTROPHILS % 88.6 % (36.0-66.0); RED BLOOD COUNT 4.55 10^6/uL (4.30-6.10); WHITE BLOOD COUNT 20.8 10^3/uL (4.0-10.0)
[2019-04-05 09:33] LABS: ALBUMIN 3.6 GM/DL (3.5-5.2); BLOOD UREA NITROGEN 14 MG/DL (6-20); CALCIUM LEVEL 9.4 MG/DL (8.5-10.2); CARBON DIOXIDE LEVEL 30 MEQ/L (23-31); CHLORIDE LEVEL 105 MMOL/L (98-107); CREATININE FOR GFR 0.92 MG/DL (0.90-1.30); GLOMERULAR FILTRATION RATE > 60.0 (>35); GLUCOSE, FASTING 117 MG/DL (70-105); POTASSIUM SERUM 3.6 MMOL/L (3.5-5.1); SODIUM LEVEL 141 MMOL/L (135-145); TOTAL PROTEIN 6.8 GM/DL (6.4-8.3)
--- NOTE | 2019-04-06 07:40 | MEDONC ---
MEDICAL ONCOLOGY FOLLOWUP DATE OF SERVICE: 04/05/2019 DIAGNOSIS: TxN2M1, poorly differentiated, HER2/jacinta negative esophageal adenocarcinoma involving extensive circumferential mid distal esophageal mass with near total obstruction, regional adenopathy, low volume bone and liver metastases, MMR stable, PD-L1 combined positive score greater than 1 (positive) diagnosed 02/16/2019. Now having begun palliative doublet chemotherapy; esophageal stent planning underway. OTHER MEDICAL PROBLEMS: Moderate dementia/Alzheimer disease. Parkinson disease, moderate. Hypertension. Aortic insufficiency. Status post AVR. Type 2 diabetes. Gout. CURRENT THERAPY: Oxaliplatin/5-FU q. 14 days, day one cycle one 03/22/2019. INTERVAL HISTORY: Mr. Whitmore saw Dr. Arroyo and stent placement is scheduled for next week. Meanwhile, he is down to sips of fluids, really unable to take in solids. He complains of headache. His weight, however, is stable today between 03/29/2019and 04/05/2019 at 72 kg, down overall 4 kg since the beginning of the month. I recommended daily IV fluids between now and next week. His son oSn has come from [place] to help with him and currently living with him. Mr. Whitmore is visibly somewhat frailer than on his last two visits. He struggles with secretions and seems to have some regurgitation of some secretions and sometimes of solid food bits. I continued to encourage soft pureed foods and liquids with sips. He continues today to again refuse PEG tube. PHYSICAL EXAMINATION: Weight 72 kg, temperature 97.2, blood pressure 137/91, heart rate 79, respiratory 20, O2 sat 96%. The patient is a tall, robust, but somewhat weakened appearing man in no distress. He retains his sense of humor, though quieter than on prior visits. Respiratory: Clear lungs to auscultation throughout. No wheezes, rales or rhonchi. Cardiac: S1 and S2, occasional ectopy. Abdomen: Soft, nontender, nondistended. Extremities: No edema. Lymph Nodes: No palpable submandibular, cervical, supraclavicular or axillary adenopathy bilaterally. LABORATORY DATA: WBC 20 down from 30, hemoglobin 14, hematocrit 42, platelets 202. Electrolytes normal, BUN remarkably is 14, creatinine 0.92, glucose 117. Liver functions normal. IMPRESSION: Stage IV, HER2/jacinta negative esophageal adenocarcinoma with obstructing mid to distal esophageal lesion, regional adenopathy, small volume liver and bone metastases. Status post one cycle of oxaliplatin/5-FU on 03/22/2019. Now with poor ECOG performance status around 1-2 and diminishing ability take in by mouth. PLAN: 1. D5 one half normal saline 1 liter today and daily between now and stent placement. 2. I will see the patient 1 week from today. At that point, will consider resuming oxaliplatin or let Mr. Whitmore try eating for another week before we continue chemotherapy. 3. If he does not gain good eating ability with stent, we will have to consider a PEG if he wants to proceed with treatment and we may need to consider radiation rather than chemotherapy. Will follow closely. Electronically Signed by Ella Turcios MD 04/06/2019 05:16 P DD: Ella Turcios MD 04/05/2019 05:16 P DT: [email or web address] 04/06/2019 07:25 A CC: MD Tasneem Kahn MD
[2019-04-06 11:57] VITALS: BP 161/89
[2019-04-08 08:15] VITALS: BP 159/79
[2019-04-09 10:55] VITALS: BP 159/79
[2019-04-10 08:13] VITALS: BP 139/92
[2019-04-11 08:25] VITALS: BP 146/88
[2019-04-12 08:41] LABS: HEMATOCRIT 43.7 % (42.0-52.0); HEMOGLOBIN 14.2 g/dl (13.5-17.5); LYMPH % 9.1 % (24.0-44.0); MEAN CORPUSCULAR HEMOGLOBIN 30.7 pg (27.0-33.0); MEAN CORPUSCULAR HGB CONC 32.5 g/dl (32.0-36.5); MEAN CORPUSCULAR VOLUME 94.5 fl (80.0-96.0); NEUTROPHILS # 12.6 10^3/uL (1.8-7.7); NEUTROPHILS % 86.4 % (36.0-66.0); RED BLOOD COUNT 4.62 10^6/uL (4.30-6.10); WHITE BLOOD COUNT 14.6 10^3/uL (4.0-10.0)
[2019-04-12 08:53] LABS: ALBUMIN 3.5 GM/DL (3.5-5.2); BLOOD UREA NITROGEN 10 MG/DL (6-20); CARBON DIOXIDE LEVEL 26 MEQ/L (23-31); CHLORIDE LEVEL 103 MMOL/L (98-107); CREATININE FOR GFR 0.86 MG/DL (0.90-1.30); GLOMERULAR FILTRATION RATE > 60.0 (>35); GLUCOSE, FASTING 99 MG/DL (70-105); POTASSIUM SERUM 3.5 MMOL/L (3.5-5.1); SODIUM LEVEL 138 MMOL/L (135-145); TOTAL PROTEIN 6.7 GM/DL (6.4-8.3)
[2019-04-12 09:42] VITALS: BP 136/88
[2019-04-12] MEDS: PALONOSETRON 250 MCG IV IV ONE ×2 (10:00→10:58)
[2019-04-12] MEDS: dexameTHASONE 10 MG IV IV ONE ×2 (10:00→10:58)
[2019-04-12] MEDS: FOSAPREPITANT PERIPHERAL LINE 30 MIN INFUSION IV ONE ×4 (11:10→11:26)
--- NOTE | 2019-04-13 13:22 | MEDONC ---
MEDICAL ONCOLOGY FOLLOWUP DATE OF SERVICE: 04/12/2019 DIAGNOSIS: Stage IV, TxN2M1, poorly differentiated, HER2/jacinta negative esophageal adenocarcinoma involving extensive mid to distal circumferential esophageal mass with near total obstruction, regional adenopathy, low volume bone and liver metastases, MMR stable, PD-L1 CPS positive diagnosed January 2019, status post one cycle palliative oxaliplatin / 5-FU 03/22/2019 with minimal clinical response to date and now status post palliative esophageal stent placed 04/11/2019. OTHER MEDICAL PROBLEMS: Moderate dementia / Alzheimer's disease. Parkinson's disease, moderate. Hypertension. Aortic insufficiency status post AVR. Type 2 diabetes. Gout. CURRENT THERAPY: Oxaliplatin / 5-FU q. 14 days day one cycle one 03/22/2019 held for persistent dysphagia and need for stent placement, as well as for debility. IV hydration daily times 1 week of this week followed by Tuesday, Tuesday, Tuesday for the next 2 weeks with D5 one half normal saline. INTERVAL HISTORY: Mr. Whitmore had the stent placed by Dr. Arroyo yesterday. He is not able to eat until tomorrow. It is clear however that at home he remains struggling. He is accompanied by his brother Reynaldo who also cares for an infirmed . Mr. Whitmore's sons are not here today though are staying with him, reportedly. I emphasized the importance of trying to now start taking oral as soon as possible, continuing hydration frequently until he is fully able to begin eating and has some relief from the obstruction. Today, I also, in light of how debilitated Mr. Whitmore appears (though with nearly completely normal CBC and CMP), I discussed considering hospice care given his advanced age, other comorbidities. In talking with him, it is clear he has a difficult time holding onto concepts. It is difficult now to discuss with him the idea of trying to take food as a form of medicine almost, even if his appetite is low to try to take something in now that he has the stent. Reynaldo was here and agreed that Mr. Whitmore probably needs additional help at home. I got our nurse navigator involved and we will work on home health aide for Mr. Whitmore. Vital signs: Weight 57 kg, stable over 2 days, overall 5 kg weight loss in 7 days, blood pressure 136/88, heart rate 82, respiratory 20, O2 sat 95%. LABORATORY DATA: WBC 14, hemoglobin 14, hematocrit 43, platelets 270. Electrolytes, liver functions normal. Creatinine 0.86, BUN 10, GFR greater than 60. IMPRESSION: Stage IV, HER2/jacinta negative MMR stable esophageal adenocarcinoma with obstructing mid to distal esophageal lesion, low volume bone and liver metastases, now status post esophageal stent placement 04/11/2019. Performance status now 2, complicated by dementia. PLAN: 1. IV fluids today and continue Tuesday, Tuesday, Fridays for the next 2 weeks with D5 one half normal saline. 2. I strongly encouraged to start of p.o. intake with soft solids or soft or pureed food beginning tomorrow and liquids as well with assistance. 3. We have ordered home health service for Mr. Whitmore. 4. Return clinic visit in approximately 10 days. We will reassess performance status, food intake tolerance and discuss treatment options, including no treatment, palliative care. Time statement: 40 minutes [id number] with the patient and his brother, more than 50% involved in coordinating care, including with our nurse navigator organizing home care, writing new fluid orders, advising the patient regarding palliative and treatment options, answering the brother's questions. Electronically Signed by Ella Turcios MD 04/17/2019 08:08 A DD: Ella Turcios MD 04/12/2019 05:30 P DT: [email or web address] 04/13/2019 12:48 P CC: MD Tasneem Kahn MD
[2019-04-17 14:28] VITALS: BP 142/86
[~2019-04-18] VITALS: Ht 182.9 cm; Wt 67.8 kg
[~2019-04-18 13:21] MED LIST changes: +ACETAMINOPHEN 650 MG SUPP PR ONE; -BIMA01SOL OU; +D5W IV ONE; -DONE5TAB82 PO; +FLUOROURACIL IV ONE; +FOSAPREPITANT PERIPHERAL LINE 30 MIN INFUSION (PREMIX) IV ONE; +FOSAPREPITANT PERIPHERAL LINE 30 MIN INFUSION IV ONE; +KCL 10MEQ IN D5/0.45NS 1000ML 1,000 ML IV ONE; +LEUCOVORIN CALCIUM IV ONE; -METF-839 PO; +NS 1,000 ML IV ONE; -OMEP-221 PO; +OXALIPLATIN IV ONE; +PALONOSETRON 250 MCG IV IV ONE; -PATIENT COMMENT; +PEGFILGRASTIM 6MG/0.6ML ONPRO KIT (J2505 PER 6MG) (FOR ONCOLOGY) SC ONE; +SODIUM CHLORIDE 0.9% INJ 10 ML SYR IV PRN; +SODIUM CHLORIDE IV ONE; +dexameTHASONE 10 MG IV IV ONE
[2019-04-18] MEDS ORDERED: KCL 10MEQ IN D5/0.45NS 1000ML 1,000 ML IV ONE (13:30)
[2019-04-18 13:45] VITALS: BP 153/86
[2019-04-19] MEDS ORDERED: LOSA50TA88 PO (09:54)
[2019-04-19] MEDS ORDERED: PATIENT COMMENT (09:54)
[2019-04-19] MEDS ORDERED: OMEP-221 PO (09:54)
[2019-04-19] MEDS ORDERED: DONE5TAB82 PO (09:54)
[2019-04-19] MEDS ORDERED: METF-839 PO (09:54)
[2019-04-20] MEDS ORDERED: SODIUM CHLORIDE 0.9% INJ 10 ML SYR IV PRN (08:00)
[2019-04-20] MEDS ORDERED: KCL 10MEQ IN D5/0.45NS 1000ML 1,000 ML IV ONE (13:30)
[2019-04-25] MEDS ORDERED: SODIUM CHLORIDE 0.9% INJ 10 ML SYR IV PRN (13:00)
== END 2019-04-18 15:27 | disposition home or self-care (01) ==
LOC: M ONCM 13:21
PROVIDERS: ATTEND Internal Medicine Medical Oncology
DX: C15.5 Malignant neoplasm of lower third of esophagus (principal); D61.810 Antineoplastic chemotherapy induced pancytopenia; G20 Parkinson's disease; I10 Essential (primary) hypertension; E11.9 Type 2 diabetes mellitus without complications; M10.9 Gout, unspecified; Z91.018 Allergy to other foods; Z88.0 Allergy status to penicillin; Z88.5 Allergy status to narcotic agent; Z79.899 Other long term (current) drug therapy
CPT/HCPCS: 36415; 36591; 71046; 80053; 85027; 86301; 96361; 96365; 96366; 96367; 96368; 96375; 96377; 96413; 96415; C8957; G0463; J0640; J1100; J1453; J1642; J2469; J2505; J9190; J9263

== ENCOUNTER → 2019-04-18 | Outpatient (CLI) | payer MEDICARE ==
[~2019-04-18] MED LIST changes: +BIMA01SOL OU; +DONE5TAB82 PO; -LR 1,000 ML IV ONE; +METF-839 PO; +OMEP-221 PO; +PATIENT COMMENT
--- NOTE | 2019-04-18 17:14 | REP ---
Clinical: Esophageal neoplasm . Comparison: 03/13/2016 . Technique: PA and lateral. Findings: Cardiac silhouette is normal. Evidence for prior sternotomy and aortic valve repair. [id number] identified with tip in the SVC. Esophageal stent identified in the proximal to mid esophagus. Left lower lobe consolidation is appreciated. No effusion. No pneumothorax. Skeletal structures intact. Impression: 1. Left lower lobe consolidation. Electronically Signed by Ricky Barrientos MD 04/18/2019 05:05 P
== END ==
LOC: M RAD 16:11
PROVIDERS: ATTEND Internal Medicine Gastroenterology
DX: C15.4 Malignant neoplasm of middle third of esophagus (principal)

== ENCOUNTER 2019-04-19 08:37 | Inpatient (IN) | payer MEDICARE ==
[~2019-04-19] VITALS: Ht 180.3 cm; Wt 81.4 kg
[~2019-04-19 08:37] MED LIST changes: -BIMA01SOL OU; -DONE5TAB82 PO; -E-Z-GAS II EFFERVESCENT PACKET (SODIUM BICARB./CITRIC ACID/SIMETHICONE) As Ordered ONE; -E-Z-HD 98% w/w 340GM SUSP BTL As Ordered ONE; -E-Z-PAQUE 96% w/w SUSP 176GM BTL As Ordered ONE; -METF-839 PO; -OMEP-221 PO; -PATIENT COMMENT
[2019-04-19] MEDS ORDERED: NS 1,000 ML IV SCH (09:45)
--- NOTE | 2019-04-19 09:47 | REP ---
CT chest without contrast: History: Malignant neoplasm middle third of the esophagus. Esophageal stent migration. Comparison chest CT study March 13, 2019. Comparison is made with recent esophagram images the findings of which are familiar to me. 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 On axial CT images this contrast can be seen partially filling the right lateral portion of the dilated esophagus. There is ingested material and air surrounding and within the proximal portion of the esophageal stent. The esophageal stent terminates at the level of the avelina at what appears to be upper margin of the esophageal mass lesion seen on CT study March 13, 2019. There is no evidence of mediastinal perforation or contrast extravasation. A right-sided Fiusfa-Z-Axeb catheter is seen in place in the superior vena cava. Right subcarinal mediastinal adenopathy is again seen unchanged from the recent prior study. No new adenopathy. There are granulomatous calcifications in the liver. Small gallstones are visible. There are granulomatous calcifications in the spleen. No adrenal lesion is seen. There is an infiltrate in the left lower lobe of the lung which is new. This may reflect aspiration pneumonia. There is some bronchiectasis in the lower lobes bilaterally. No pleural or pericardial effusion is seen. No bony destructive lesion. Impression: Findings consistent with proximal migration of the esophageal stent to this level of the superior margin of the malignant esophageal lesion. The esophagus is dilated around the proximal portion of the stent and contains ingested material. The lumen of the stent is filled with ingested material as well. There is no evidence of perforation or mediastinal air or fluid. There is a small infiltrate in the left lower lobe consistent with aspiration pneumonia. Electronically Signed by Clint Roberts MD 04/19/2019 02:33 P
--- NOTE | 2019-04-19 09:52 | REP ---
CT NECK WITHOUT CONTRAST: HISTORY: Esophageal stent migration. Residual contrast material is present in the mehul- and hypopharynx and esophagus from a recent barium swallow. The naso-, mehul- and hypopharynx, larynx and subglottic trachea are normal in appearance. The salivary and thyroid glands are normal in size and density. Small lymph nodes less than 1 cm in size are present in the internal jugular chains, posterior triangles and submandibular areas. Atherosclerotic calcification is present at the carotid bifurcations. Degenerative change is present in the cervical spine. The lung apices are clear. An esophageal stent is present. There has been superior migration of the stent. The proximal stent is present in the esophagus at the T1-2 level. The visualized sinuses are clear. IMPRESSION: 1. There is no neck mass or adenopathy. 2. There has been superior migration of an esophageal stent with the proximal stent present at the T1-2 level. Electronically Signed by Temo Richards MD 04/19/2019 10:03 A
[2019-04-19] MEDS ORDERED: OMEP-221 PO (09:54)
[2019-04-19] MEDS ORDERED: LOSA50TA88 PO (09:54)
[2019-04-19] MEDS ORDERED: PATIENT COMMENT (09:54)
[2019-04-19] MEDS ORDERED: METF-839 PO (09:54)
[2019-04-19] MEDS ORDERED: DONE5TAB82 PO (09:54)
[2019-04-19 10:27] LABS: BASO % 0.2 % (0.0-1.0); EOS # 0.1 10^3/uL (0.0-0.50); EOS % 0.5 % (0.0-3.0); HEMATOCRIT 40.4 % (42.0-52.0); HEMOGLOBIN 13.4 g/dl (13.5-17.5); LYMPH % 6.6 % (24.0-44.0); MEAN CORPUSCULAR HEMOGLOBIN 29.8 pg (27.0-33.0); MEAN CORPUSCULAR HGB CONC 33.2 g/dl (32.0-36.5); MEAN CORPUSCULAR VOLUME 89.8 fl (80.0-96.0); MONO # 1.2 10^3/uL (0.0-0.8); MONO % 8.4 % (0.0-5.0); NEUTROPHILS # 12.3 10^3/uL (1.8-7.7); NEUTROPHILS % 83.8 % (36.0-66.0); PLATELET COUNT, AUTOMATED 196 10^3/uL (150-450); WHITE BLOOD COUNT 14.7 10^3/uL (4.0-10.0)
[2019-04-19 11:16] LABS: ALBUMIN 1.6 GM/DL (3.2-5.2); ALT/SGPT 8 U/L (12-78); BILIRUBIN,TOTAL 0.5 MG/DL (0.2-1.0); BLOOD UREA NITROGEN 7 MG/DL (7-18); CALCIUM LEVEL 5.8 MG/DL (8.8-10.2); CARBON DIOXIDE LEVEL 23 MEQ/L (21-32); CHLORIDE LEVEL 118 MEQ/L (98-107); CREATININE FOR GFR 0.25 MG/DL (0.70-1.30); GLOMERULAR FILTRATION RATE > 60.0 (>35); GLUCOSE, FASTING 63 MG/DL (70-100); POTASSIUM SERUM 2.4 MEQ/L (3.5-5.1); SODIUM LEVEL 148 MEQ/L (136-145); TOTAL PROTEIN 4.5 GM/DL (6.4-8.2)
[2019-04-19] MEDS ORDERED: KCL 10MEQ/100ML SWI (KRUN) 10 MEQ in APPROPRIATE DILUENT 1 EA IV ONE (11:30)
[2019-04-19 11:46] LABS: MAGNESIUM LEVEL 1.4 MG/DL (1.8-2.4); PHOSPHORUS LEVEL 1.7 MG/DL (2.5-4.9)
[2019-04-19 11:57] LABS: PTH INTACT 31.4 PG/ML (18.5-88.0)
[2019-04-19] MEDS: MAG SULF 1GM/100ML (MAG RUN) 1 GM in APPROPRIATE DILUENT 1 EA IV SCH ×3 (12:41→17:50)
[2019-04-19] MEDS ORDERED: KCL 10MEQ/100ML SWI (KRUN) 10 MEQ in APPROPRIATE DILUENT 1 EA IV SCH (13:00)
[2019-04-19] MEDS ORDERED: hydrALAZINE INJ 20 MG/ML VIAL IV PRN (13:45)
[2019-04-19] MEDS ORDERED: CALCIUM GLUCONATE 1,000 MG in D5W MINI-BAG PLUS 100 ML IV ONE (14:00)
[2019-04-19 14:10] VITALS: BP 162/68
[2019-04-19] MEDS: LevoFLOXacin IV 500 MG in APPROPRIATE DILUENT 1 EA IV SCH (14:49)
[2019-04-19] MEDS: D5W/0.45% SODIUM CHLORIDE 1,000 ML IV SCH (14:49)
[2019-04-19 16:00] VITALS: BP 120/50
[2019-04-19] MEDS: KCL 10MEQ/100ML SWI (KRUN) 10 MEQ in APPROPRIATE DILUENT 1 EA IV SCH ×4 (16:47→18:45)
--- NOTE | 2019-04-19 19:04 | HPEPDOC ---
General Date of Admission April 19, 2019 at 12:01 Date of Service: April 19, 2019 Chief Complaint The patient is a 78-year-old male admitted with a reason for visit of Migration Of Esophageal Stent. 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 Arroyo of GI presented to the ER with a chief complaint of inability to take in by mouth diet. The patient states that he tried eating applesauce, and liquids, and he has been unable to keep anything down. He states that he has been throwing up right away. Also of note, the patient does endorse that he tried eating a hamburger a few days ago as well. He notes that he usually throws up undigested food particles shortly after eating. He denies any complaints of fevers, chills, chest pain, palpitations, shortness breath, abdominal pain, or any diarrhea. In the ER, a CT scan of the neck revealed superior migration of an esophageal stent with proximal stent present at the T1-[address] Blanca GI was contacted and will see the patient in consultation. The patient will be admitted under the hospitalist service for further evaluation and management. Home Medications Scheduled Allopurinol (Zyloprim) 300 Mg Tablet, 300 MG PO QHS, (Reported) Amlodipine Besylate (Amlodipine Besylate) 5 Mg Tablet, 5 MG PO QHS, (Reported) Aspirin (Aspir 81) 81 Mg Tablet.dr, 81 MG PO DAILY, (Reported) Digoxin (Digoxin) 125 Mcg Tablet, 125 MCG PO QHS, (Reported) Docusate Sodium (Colace) 100 Mg Capsule, 100 MG PO DAILY, (Reported) Donepezil HCl (Donepezil HCl) 5 Mg Tablet, 5 MG PO QHS, (Reported) Losartan Potassium (Losartan Potassium) 50 Mg Tablet, 50 MG PO QHS, (Reported) Metformin HCl (Metformin HCl) 500 Mg Tablet, 500 MG PO BID, (Reported) Metoprolol Tartrate (Metoprolol Tartrate) 50 Mg Tab, 50 MG PO BID, (Reported) Omeprazole (Omeprazole) 40 Mg Capsule., 40 MG PO DAILY, (Reported) Simvastatin (Simvastatin) 20 Mg Tab, 20 MG PO QHS, (Reported) Miscellaneous Medications [Patient Comment] , (Reported) PATIENT HAS BEEN ATTEMPTING TO TAKE ALL MEDICATIONS, HOWEVER HAS BEEN VOMITTING ABOUT 15 SECONDS AFTER TAKING. Allergies Coded Allergies: [place] (Verified Allergy, Severe, SWELLING AND RASH, 04/19/19) Penicillins (Verified Allergy, Unknown, 04/11/19) morphine (Verified Allergy, Unknown, 04/11/19) Past Medical History Medical History As noted in HPI. Social History * Smoker: former Smoker Alcohol: Denies Drugs: denies Review of Systems Other systems 10 point review of systems negative unless otherwise specified in HPI. Physical Examination General Exam: Positive: Alert, Cooperative, No Acute Distress ENT Exam: Positive: Atraumatic; Negative: Mucous membr. moist/pink (mucosa) Chest Exam: Positive: Clear to auscultation, Normal air movement Heart Exam: Positive: Rate Normal, Normal S1, Normal S2 Abdomen Exam: Positive: Soft; Negative: Tenderness Extremity Exam: Negative: Tenderness, Swelling Vital Signs Vital Signs Date Time Temp Pulse Resp B/P (MAP) Pulse Ox O2 Delivery O2 Flow Rate FiO2 04/19/19 16:00 97.0 64 18 120/50 (73) 97 04/19/19 13:45 Room Air Laboratory Data Labs 24H Laboratory Tests 2 04/19/19 08:53: Immature Granulocyte % (Auto) 0.5, White Blood Count 14.7H, Red Blood Count 4.50, Hemoglobin 13.4L, Hematocrit 40.4L, Mean Corpuscular Volume 89.8, Mean Corpuscular Hemoglobin 29.8, Mean Corpuscular Hemoglobin Concent 33.2, Red Cell Distribution Width 13.9, Platelet Count 196, Neutrophils (%) (Auto) 83.8H, Lymphocytes (%) (Auto) 6.6L, Monocytes (%) (Auto) 8.4H, Eosinophils (%) (Auto) 0.5, Basophils (%) (Auto) 0.2, Neutrophils # (Auto) 12.3H, Lymphocytes # (Auto) 1.0L, Monocytes # (Auto) 1.2H, Eosinophils # (Auto) 0.1, Basophils # (Auto) 0.0, Nucleated Red Blood Cells % (auto) 0.0, Anion Gap 7L, Glomerular Filtration Rate > 60.0, Blood Urea Nitrogen 7, Creatinine 0.25L, Sodium Level 148H, Potassium Level 2.4*L, Chloride Level 118H, Carbon Dioxide Level 23, Calcium Level 5.8*L, Phosphorus Level 1.7L, Aspartate Amino Transf (AST/SGOT) 10, Alanine Aminotransferase (ALT/SGPT) 8L, Alkaline Phosphatase 70, Total Bilirubin 0.5, Total Protein 4.5L, Albumin 1.6L, Magnesium Level 1.4L, Albumin/Globulin Ratio 0.55L, Parathyroid Hormone (Intact) 31.4 04/19/19 09:51: Whole Blood Ionized Calcium 4.6 04/19/19 12:59: CBC/BMP Laboratory Tests 04/19/19 08:53 Red Blood Count 4.50, Mean Corpuscular Volume 89.8, Mean Corpuscular Hemoglobin 29.8, Mean Corpuscular Hemoglobin Concent 33.2, Red Cell Distribution Width 13.9, Neutrophils (%) (Auto) 83.8 H, Lymphocytes (%) (Auto) 6.6 L, Monocytes (%) (Auto) 8.4 H, Eosinophils (%) (Auto) 0.5, Basophils (%) (Auto) 0.2, Neutrophils # (Auto) 12.3 H, Lymphocytes # (Auto) 1.0 L, Monocytes # (Auto) 1.2 H, Eosinophils # (Auto) 0.1, Basophils # (Auto) 0.0, Calcium Level 5.8 *L, Phosphorus Level 1.7 L, Aspartate Amino Transf (AST/SGOT) 10, Alanine Aminotransferase (ALT/SGPT) 8 L, Alkaline Phosphatase 70, Total Bilirubin 0.5, Total Protein 4.5 L, Albumin 1.6 L Plan / VTE VTE Prophylaxis Ordered?: Yes Plan Plan Dysphagia 2/2 Superior Migration of Esophageal Stent Possibly 2/2 Tumor growth We will keep the patient NPO IVF Hydration ordered Dr. 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
[2019-04-19 20:00] VITALS: BP 156/86
[2019-04-19] MEDS: HEPARIN SOD (PORCINE) 5000 UNITS/ML VIAL SQ SCH (20:01)
[2019-04-19] MEDS: metroNIDAZOLE 500 MG in APPROPRIATE DILUENT 1 EA IV SCH (20:02)
[2019-04-19 20:38] LABS: BLOOD UREA NITROGEN 8 MG/DL (7-18); CALCIUM LEVEL 7.8 MG/DL (8.8-10.2); CARBON DIOXIDE LEVEL 28 MEQ/L (21-32); CHLORIDE LEVEL 106 MEQ/L (98-107); GLOMERULAR FILTRATION RATE > 60.0 (>35); GLUCOSE, FASTING 98 MG/DL (70-100); MAGNESIUM LEVEL 2.7 MG/DL (1.8-2.4); POTASSIUM SERUM 3.8 MEQ/L (3.5-5.1); SODIUM LEVEL 141 MEQ/L (136-145)
[2019-04-19 21:31] LABS: BLOOD UREA NITROGEN 8 MG/DL (7-18); CALCIUM LEVEL 7.6 MG/DL (8.8-10.2); CARBON DIOXIDE LEVEL 28 MEQ/L (21-32); CHLORIDE LEVEL 106 MEQ/L (98-107); CREATININE FOR GFR 0.46 MG/DL (0.70-1.30); GLOMERULAR FILTRATION RATE > 60.0 (>35); GLUCOSE, FASTING 95 MG/DL (70-100); MAGNESIUM LEVEL 2.6 MG/DL (1.8-2.4); POTASSIUM SERUM 3.9 MEQ/L (3.5-5.1); SODIUM LEVEL 140 MEQ/L (136-145)
[2019-04-19 23:59] VITALS: BP 173/97
[2019-04-20] MEDS: D5W/0.45% SODIUM CHLORIDE 1,000 ML IV SCH ×2 (03:12→15:06)
[2019-04-20] MEDS: metroNIDAZOLE 500 MG in APPROPRIATE DILUENT 1 EA IV SCH ×3 (03:21→21:38)
[2019-04-20 04:00] VITALS: BP 156/97
[2019-04-20 05:33] LABS: HEMATOCRIT 38.3 % (42.0-52.0); MEAN CORPUSCULAR HEMOGLOBIN 30.8 pg (27.0-33.0); MEAN CORPUSCULAR HGB CONC 33.9 g/dl (32.0-36.5); MEAN CORPUSCULAR VOLUME 90.8 fl (80.0-96.0); PLATELET COUNT, AUTOMATED 169 10^3/uL (150-450); RED BLOOD COUNT 4.22 10^6/uL (4.30-6.10); WHITE BLOOD COUNT 12.7 10^3/uL (4.0-10.0)
--- NOTE | 2019-04-20 05:49 | ECGEPIP ---
[facility] - ED Test Date: 2019-04-19 Pat Name: NYA NAGY Department: Room: [place] [address] Gender: Male Cook Relief: : 1940 Requested By: Maeve Marroquin Order Number: [id number] Reading MD: Oliver Lucas Measurements Intervals [place] Rate: 74 P: 77 TN: 147 QRS: QRSD: 152 T: 56 QT: 435 QTc: 483 Interpretive Statements SINUS RHYTHM WITH OCCASIONAL VENTRICULAR PREMATURE COMPLEXES BORDERLINE LEFT AXIS DEVIATION RIGHT BUNDLE BRANCH BLOCK NSTTW ABNORMALITIES SIMILAR TO 03/13/16 Electronically Signed on 04-20-2019 5:49:42 EDT by Oliver Lucas
[2019-04-20 05:57] LABS: BLOOD UREA NITROGEN 7 MG/DL (7-18); CARBON DIOXIDE LEVEL 28 MEQ/L (21-32); CHLORIDE LEVEL 105 MEQ/L (98-107); CREATININE FOR GFR 0.52 MG/DL (0.70-1.30); GLOMERULAR FILTRATION RATE > 60.0 (>35); GLUCOSE, FASTING 107 MG/DL (70-100); MAGNESIUM LEVEL 2.1 MG/DL (1.8-2.4); POTASSIUM SERUM 3.1 MEQ/L (3.5-5.1); SODIUM LEVEL 140 MEQ/L (136-145)
[2019-04-20 08:00] VITALS: BP 153/102
--- NOTE | 2019-04-20 08:01 | CR.PDOC ---
General Date of Consultation: April 19, 2019 Referring Provider: KAYLAN LYMAN MD Primary Care Physician: Ella Turcios MD Attending Physician: LOLI NAIR MD Consultation Primary physician/ hospitalist: Dr. Lyman Reason for consult: Abnormal esophagogram, possible stent migration. HPI: 78-year-old male patient with HTN, HLD, DM type II, gout, Parkinson's disease, aortic insufficiency ( s/p AVR, on ASA 81mg, and digoxin), recently diagnosed with esophageal adenocarcinoma (in January 2019, poorly differentiated, Stage IV, with the distant metastasis ), underwent esophageal covered metallic stent placement on 04/11/2019, was noted with recurrent dysphagia, had outpatient chest x-ray and esophagogram which showed obstruction and possible migration of the stent. Patient was admitted through ER for further evaluation and management. Patient reports trying to eat hamburger few days ago, and started throwing up undigested food particles and since then having persistent episodes of vomiting. Patient also had CT scan of neck and chest which revealed possible superior migration of esophageal stent. Pertinent negative GI symptoms: Patient denies fever, chills, chest pain, abdominal pain, hematemesis, melena or hematochezia. Review of Systems: GI: as stated above CVS: No chest pain, No palpitations, No leg swelling. 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 Skin: No rash : No hematuria, No burning sensation of the urine ENT: No ear discharge/ pain, No dysphagia. Eyes: No photophobia. Home medications: reviewed. Antithrombotic agents -on aspirin 81 MG Medical h/o: As above. Surgical h/o: None on abdomen. Social h/o: Alcohol-denies, tobacco-denies, IVDA/ drugs-denies. Family h/o of GI cancers -noncontributory Prior Endoscopies: --- EGD -EGD with covered metal stent placement on 04/11/2019. --- Colonoscopy -none in [facility] Prior GI evaluation: Patient was seen in GI clinic in [facility] for palliative esophageal stent placement. Exam: Vitals: reviewed General: Alert and oriented x 3, not in distress HEENT: No pallor, no icterus. Normal oropharynx, NO cervical lymph nodes. Chest: symmetric with bilateral clear air entry, CVS: S1, S2 heard, normal, no murmurs . Abdomen: Non-distended, no surgical scars, soft, non-tender, no palpable masses, normal bowel sounds heard. Rectal exam: Patient refused. Extremities: no pedal edema, pulses palpable. 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 Moves all extremities Skin: no rash. Labs: reviewed. Imaging tests: reviewed with radiologist. Impression: - Stage IV esophageal adenocarcinoma with esophageal obstruction,s/p palliative esophageal metal stent placement, with recurrent dysphagia -- S/p CT Chest and neck - showing suspected superior stent migration. DDx-- Likely stent migration vs Food obstruction inside the stent. Recommendations: - Patient educated about the test results, possible differential diagnoses and All questions answered. - NPO - Intermittent oral suctioning to prevent aspiration of secretions. - IV hydration and correction of electrolytes. - IV antibiotics for suspected pneumonia as per primary team - Discussed with patient and his family extensively about the all management options available. Also explained the endoscopic measures are only for palliative intention. - After extensive discussion, patient ( along with family members) consented for endoscopy, and replacement of stent and if needed PEG tube placement for retirement alternate feeding. - The procedures, indications, risks (bleeding, perforation, infection, hypotension, respiratory depression, allergy, need for endotracheal intubation, surgery, colostomy, cardiac arrest, even ), benefits, limitations (e.g., stent occlusion or failed procedure), and all other alternatives (including no intervention) were explained to the patient who understood and agreed for the procedures. - Will schedule for EGD with/without stent exchange with/without PEG tube placement tomorrow after stabilization of the electrolytes and IV antibiotics therapy for suspected pneumonia. - Patient will require pre- operative Antibiotics if PEG tube is placed. Plan of care discussed with patient and primary team. Patient verbalized understanding and agreed with the plan. Laboratory Data CBC/BMP Laboratory Tests 04/19/19 08:53 Red Blood Count 4.50, Mean Corpuscular Volume 89.8, Mean Corpuscular Hemoglobin 29.8, Mean Corpuscular Hemoglobin Concent 33.2, Red Cell Distribution Width 13.9, Neutrophils (%) (Auto) 83.8 H, Lymphocytes (%) (Auto) 6.6 L, Monocytes (%) (Auto) 8.4 H, Eosinophils (%) (Auto) 0.5, Basophils (%) (Auto) 0.2, Neutrophils # (Auto) 12.3 H, Lymphocytes # (Auto) 1.0 L, Monocytes # (Auto) 1.2 H, Eosinophils # (Auto) 0.1, Basophils # (Auto) 0.0, Calcium Level 5.8 *L, Phosph orus Level 1.7 L, Aspartate Amino Transf (AST/SGOT) 10, Alanine Aminotransferase (ALT/SGPT) 8 L, Alkaline Phosphatase 70, Total Bilirubin 0.5, Total Protein 4.5 L, Albumin 1.6 L 04/19/19 19:52 Calcium Level 7.8 #L 04/19/19 20:50 Calcium Level 7.6 L 04/20/19 05:21 Red Blood Count 4.22 L, Mean Corpuscular Volume 90.8, Mean Corpuscular Hemoglobin 30.8, Mean Corpuscular Hemoglobin Concent 33.9, Red Cell Distribution Width 13.8, Calcium Level 8.0 L Allergies Coded Allergies: [place] (Verified Allergy, Severe, SWELLING AND RASH, 04/19/19) Penicillins (Verified Allergy, Unknown, 04/11/19) morphine (Verified Allergy, Unknown, 04/11/19) Home Medications Scheduled Allopurinol (Zyloprim) 300 Mg Tablet, 300 MG PO QHS, (Reported) Amlodipine Besylate (Amlodipine Besylate) 5 Mg Tablet, 5 MG PO QHS, (Reported) Aspirin (Aspir 81) 81 Mg Tablet.dr, 81 MG PO DAILY, (Reported) Digoxin (Digoxin) 125 Mcg Tablet, 125 MCG PO QHS, (Reported) Docusate Sodium (Colace) 100 Mg Capsule, 100 MG PO DAILY, (Reported) Donepezil HCl (Donepezil HCl) 5 Mg Tablet, 5 MG PO QHS, (Reported) Losartan Potassium (Losartan Potassium) 50 Mg Tablet, 50 MG PO QHS, (Reported) Metformin HCl (Metformin HCl) 500 Mg Tablet, 500 MG PO BID, (Reported) Metoprolol Tartrate (Metoprolol Tartrate) 50 Mg Tab, 50 MG PO BID, (Reported) Omeprazole (Omeprazole) 40 Mg Capsule.dr, 40 MG PO DAILY, (Reported) Simvastatin (Simvastatin) 20 Mg Tab, 20 MG PO QHS, (Reported) Miscellaneous Medications [Patient Comment] , (Reported) PATIENT HAS BEEN ATTEMPTING TO TAKE ALL MEDICATIONS, HOWEVER HAS BEEN VOMITTI NG ABOUT 15 SECONDS AFTER TAKING. LOLI NAIR MD April 20, 2019 08:01
[2019-04-20] MEDS: KCL 10MEQ/100ML SWI (KRUN) 10 MEQ in APPROPRIATE DILUENT 1 EA IV SCH ×4 (08:20→17:10)
[2019-04-20] MEDS: HEPARIN SOD (PORCINE) 5000 UNITS/ML VIAL SQ SCH ×2 (09:00→21:39)
--- NOTE | 2019-04-20 11:19 | IPNPDOC ---
Subjective Date Seen The patient was seen on 04/20/19. Subjective Chief Complaint/HPI Patient seen and examined at the bedside. No acute overnight events noted. Patient does not endorse any acute complaints. Objective Physical Examination General Exam: Positive: Alert, Cooperative, No Acute Distress ENT Exam: Positive: Atraumatic; Negative: Mucous membr. moist/pink (mucosa) Chest Exam: Positive: Clear to auscultation, Normal air movement Heart Exam: Positive: Rate Normal, Normal S1, Normal S2 Abdomen Exam: Positive: Soft; Negative: Tenderness Extremity Exam: Negative: Tenderness, Swelling Assessment /Plan Plan/VTE VTE Prophylaxis Ordered?: Yes Plan Dysphagia 2/2 Superior Migration of Esophageal Stent Possibly 2/2 Tumor growth Cont NPO status IVF Hydration Dr. Arroyo of GI on board with plans for EGD today Aspiration PNA 2/2 Above Levaquin, Flagyl ordered 2/2 Penicillin Allergy We will cont to monitor Electrolyte Abnormalities 2/2 Decreased PO Intake Lytes improved, will continue to replete as needed Stage IV poorly differentiated esophageal adenocarcinoma with metastases to the liver s/p 1 cycle of palliative oxaliplatin on 03/22/19 F/U with Oncology as outpatient Hx of Hypertension Dyslipidemia Diabetes mellitus Aortic insufficiency status post AVR Gout GERD DVT Prophylaxis--Heparin SC VS, I&O, 24H, Fishbone Vital Signs/I&O Vital Signs Date Time Temp Pulse Resp B/P (MAP) Pulse Ox O2 Delivery O2 Flow Rate FiO2 04/20/19 08:00 97.2 67 16 153/102 (119) 95 04/19/19 13:45 Room Air I&O- Last 24 Hours up to 6 AM 04/20/19 06:00 Intake Total 1210 ml Output Total 1350 ml Balance -140 ml Laboratory Data 24H LABS Laboratory Tests 2 04/19/19 12:59: 04/19/19 19:52: Anion Gap 7L, Glomerular Filtration Rate > 60.0, Blood Urea Nitrogen 8, Creatinine 0.50#L, Sodium Level 141, Potassium Level 3.8#, Chloride Level 106, C arbon Dioxide Level 28, Calcium Level 7.8#L, Magnesium Level 2.7H 04/19/19 20:50: Anion Gap 6L, Glomerular Filtration Rate > 60.0, Blood Urea Nitrogen 8, Creatinine 0.46L, Sodium Level 140, Potassium Level 3.9, Chloride Level 106, Carbon Dioxide Level 28, Calcium Level 7.6L, Magnesium Level 2.6H 04/20/19 05:21: Anion Gap 7L, Glomerular Filtration Rate > 60.0, Blood Urea Nitrogen 7, Creatinine 0.52L, Sodium Level 140, Potassium Level 3.1#L, Chloride Level 105, Carbon Dioxide Level 28, Calcium Level 8.0L, Magnesium Level 2.1, Nucleated Red Blood Cells % (auto) 0.0 CBC/BMP Laboratory Tests 04/19/19 19:52 Calcium Level 7.8 #L 04/19/19 20:50 Calcium Level 7.6 L 04/20/19 05:21 Calcium Level 8.0 L, Red Blood Count 4.22 L, Mean Corpuscular Volume 90.8, Mean Corpuscular Hemoglobin 30.8, Mean Corpuscular Hemoglobin Concent 33.9, Red Cell Distribution Width 13.8 KAYLAN LYMAN MD April 20, 2019 11:19
[2019-04-20] MEDS ORDERED: LIDOCAINE 2% INJ 100 MG/5 ML SDV (FOR ANES.) As Ordered ONE (12:12)
[2019-04-20] MEDS ORDERED: fentaNYL 100 MCG/2 ML INJECTION (J3010) As Ordered ONE ×2 (12:12→13:32)
[2019-04-20] MEDS ORDERED: ROCURONIUM BROMIDE 50 MG/5 ML VIAL As Ordered ONE (12:12)
[2019-04-20] MEDS ORDERED: MIDAZOLAM INJ 2 MG/2 ML VIAL (J2250) As Ordered ONE (12:12)
[2019-04-20] MEDS ORDERED: PROPOFOL 200 MG/20 ML VIAL As Ordered ONE (12:12)
[2019-04-20] MEDS ORDERED: ONDANSETRON 4MG/2ML VIAL (J2405) As Ordered ONE (12:14)
[2019-04-20] MEDS ORDERED: dexameTHASONE 4 MG/ML 1ML VIAL (J1100) As Ordered ONE (12:14)
[2019-04-20] MEDS ORDERED: ePHEDrine SULFATE 25 MG/5 ML(5MG/ML) SYRINGE As Ordered ONE (12:56)
[2019-04-20] MEDS ORDERED: PHENYLephrine HCL 500 MCG/5 ML (100MCG/ML) SYRINGE (J2370) As Ordered ONE (12:56)
[2019-04-20] MEDS ORDERED: metroNIDAZOLE/NACL 500MG(5MG/ML)100 ML BAG (S0030) As Ordered ONE (12:59)
[2019-04-20] MEDS ORDERED: BIMA01SOL OU (13:37)
[2019-04-20] MEDS ORDERED: SUGAMMADEX SODIUM 500 MG/5 ML VIAL (BRIDION) As Ordered ONE (13:45)
[2019-04-20] MEDS ORDERED: LR 1,000 ML IV SCH (15:00)
[2019-04-20] MEDS ORDERED: ONDANSETRON 4MG/2ML VIAL (J2405) IV PRN (15:00)
--- NOTE | 2019-04-20 15:00 | REP ---
Chest fluoroscopy series: 40 views. History: Esophageal stent placement. 32 seconds of fluoroscopy time is reported. Findings: A sequence of 40 last image hold fluoroscopically obtained spot radiographs document esophageal stent placement procedure. Electronically Signed by Clint Roberts MD 04/20/2019 04:03 P
[2019-04-20] MEDS ORDERED: LevoFLOXacin(LEVAQUIN)500 MG/100 ML BAG (J1956) As Ordered ONE (15:05)
[2019-04-20] MEDS: LevoFLOXacin IV 500 MG in APPROPRIATE DILUENT 1 EA IV SCH (15:06)
--- NOTE | 2019-04-20 15:07 | ROOR ---
Patient Name: Emmett Whitmore Procedure Date: 04/20/2019 12:41 PM Date of : 1940 Age: 78 Room: Main OR Gender: Male Note Status: Finalized Procedure: Upper GI endoscopy Indications: For palliative stenting of stenosing neoplasm of the esophagus, Place PEG, Dysphagia Providers: Shiv Arroyo MD Referring MD: Vivek Mcgrath Md Requesting Provider: Medicines: Monitored Anesthesia Care Complications: No immediate complications. Procedure: Pre-Anesthesia Assessment: - Prior to the procedure, a History and Physical was performed, and patient medications and allergies were reviewed. The patient is competent. The risks and benefits of the procedure and the sedation options and risks were discussed with the patient. All questions were answered and informed consent was obtained. Patient identification and proposed procedure were verified by the physician, the nurse and the anesthesiologist in the procedure room. Mental Status Examination: alert and oriented. Airway Examination: normal oropharyngeal airway and neck mobility. Respiratory Examination: clear to auscultation. CV Examination: normal. Prophylactic Antibiotics: The patient does not require prophylactic antibiotics. Prior Anticoagulants: The patient has taken no previous anticoagulant or antiplatelet agents. ASA Grade Assessment: IV - A patient with severe systemic disease that is a constant threat to life. After reviewing the risks and benefits, the patient was deemed in satisfactory condition to undergo the procedure. The anesthesia plan was to use monitored anesthesia care (MAC). Immediately prior to administration of medications, the patient was re-assessed for adequacy to receive sedatives. The heart rate, respiratory rate, oxygen saturations, blood pressure, adequacy of pulmonary ventilation, and response to care were monitored throughout the procedure. The physical status of the patient was re-assessed after the procedure. The Endoscope was introduced through the mouth, and advanced to the second part of duodenum. The Endoscope was introduced through the mouth, and advanced to the second part of duodenum. Findings: An esophageal stent was found in the upper third of the esophagus and in the middle third of the esophagus. Stent removal was accomplished with a rat-toothed forceps. A large, ulcerating mass with no bleeding and stigmata of recent bleeding was found in the middle third of the esophagus and in the lower third of the esophagus, 28 to 38 cm from the incisors. The mass was completely obstructing and circumferential. This was stented with Olympus Hanaro covered esophageal stent([id number]) under fluoroscopic guidance, proximal margin at 26 cm and distal margin at 41 cm from the incisors. No gross lesions were noted in the entire examined stomach. The patient was placed in the supine position for PEG placement. The stomach was insufflated to appose gastric and abdominal hale. A site was located in the body of the stomach with excellent transillumination and manual external pressure for placement. The abdominal wall was marked and prepped in a sterile manner. The trocar needle was introduced through the abdominal wall and into the stomach under direct endoscopic view. A snare was introduced through the endoscope and opened in the gastric lumen. The guide wire was passed through the trocar and into the open snare. The snare was closed around the guide wire. The endoscope and snare were removed, pulling the wire out through the mouth. A skin incision was made at the site of needle insertion. The externally removable 24 Fr Zac-Cook gastrostomy tube was lubricated. The G-tube was tied to the guide wire and pulled through the mouth and into the stomach. The trocar needle was removed, and the gastrostomy tube was pulled out from the stomach through the skin. The external bumper was attached to the gastrostomy tube, and the tube was cut to remove the guide wire. The final position of the gastrostomy tube was confirmed by relook endoscopy, and skin marking noted to be 2 cm at the external bumper. The final tension and compression of the abdominal wall by the PEG tube and external bumper were checked and revealed that the bumper was moderately tight and mildly deforming the skin. The feeding tube was capped, and the tube site cleaned and dressed. No gross lesions were noted in the duodenal bulb and in the second portion of the duodenum. Impression: - Pre-existing esophageal stent, removed. - Completely obstructing, malignant esophageal tumor was found in the middle third of the esophagus and in the lower third of the esophagus. Prosthesis placed. - No gross lesions in the stomach. - No gross lesions in the duodenal bulb and in the second portion of the duodenum. - An externally removable PEG placement was successfully completed. Recommendation: - Patient has a contact number available for emergencies. The signs and symptoms of potential delayed complications were discussed with the patient. Return to normal activities tomorrow. Written discharge instructions were provided to the patient. - Clear liquid diet for 1 day. - Advance diet as tolerated tomorrow if no bleeding from PG tube. - Continue present medications. - Perform an esophagram in 2 weeks. - Please follow the post-PEG recommendations. - Avoid NSAIDs for atleast 5 days. ( no contraindication for aspirin 81 mg). - Give pain medication - prefer opioid pain medication - standing dose for atleast 3 days. - Monitor PEG dressing for bleeding every 4 hours. - Check CBC and BUN/ Cr every 12 hours for 1 days or until stable. - Tube feeding tomorrow after evaluation of the PEG tube site. - Program Therapist consult for PEG tube feeding. - Clean dry dressing of the PEG site daily, and routine infection prevention precautions. - Keep a covered dressing / abdominal binder to prevent accidental removal of PEG tube while not using it. - Follow up with PCP for routine medical care. - Return to GI clinic if persistent symptoms or new symptoms. - Return to primary care physician. Shiv Arroyo MD Shiv Arroyo MD 04/20/2019 3:06:28 PM Electronically signed by Shiv Arroyo MD Number of Addenda: 0 Note Initiated On: 04/20/2019 12:41 PM Estimated Blood Loss: Estimated blood loss was minimal.
[2019-04-20] MEDS ORDERED: hydrALAZINE INJ 20 MG/ML VIAL IV SCH (15:35)
[2019-04-20] MEDS ORDERED: hydrALAZINE INJ 20 MG/ML VIAL As Ordered ONE (15:36)
[2019-04-20 16:15] VITALS: BP 131/74
[2019-04-20] MEDS ORDERED: ACETAMINOPHEN TAB 650MG DOSE (2X325MG) PO PRN (17:00)
[2019-04-20] MEDS ORDERED: KCL 10MEQ IN STERILE WATER 100ML As Ordered ONE (17:09)
[2019-04-20 20:00] VITALS: BP 112/58
[2019-04-20] MEDS ORDERED: LUMIGAN 0.01% OU SCH (21:00)
[2019-04-20] MEDS: LATANOPROST 0.005% OPHTH SOLN 2.5 ML OU SCH (21:39)
[2019-04-20 23:59] VITALS: BP 126/74
[2019-04-21] VITALS (7 sets, daily range): BP systolic 117–140; BP diastolic 72–87
[2019-04-21] MEDS: D5W/0.45% SODIUM CHLORIDE 1,000 ML IV SCH (03:31)
[2019-04-21] MEDS: metroNIDAZOLE 500 MG in APPROPRIATE DILUENT 1 EA IV SCH ×3 (03:31→19:52)
[2019-04-21 04:19] LABS: HEMATOCRIT 37.7 % (42.0-52.0); HEMOGLOBIN 12.5 g/dl (13.5-17.5); MEAN CORPUSCULAR HEMOGLOBIN 29.3 pg (27.0-33.0); MEAN CORPUSCULAR HGB CONC 33.2 g/dl (32.0-36.5); MEAN CORPUSCULAR VOLUME 88.5 fl (80.0-96.0); PLATELET COUNT, AUTOMATED 174 10^3/uL (150-450); RED BLOOD COUNT 4.26 10^6/uL (4.30-6.10); WHITE BLOOD COUNT 14.5 10^3/uL (4.0-10.0)
[2019-04-21 04:44] LABS: BLOOD UREA NITROGEN 7 MG/DL (7-18); CALCIUM LEVEL 7.5 MG/DL (8.8-10.2); CARBON DIOXIDE LEVEL 29 MEQ/L (21-32); CHLORIDE LEVEL 106 MEQ/L (98-107); CREATININE FOR GFR 0.55 MG/DL (0.70-1.30); GLOMERULAR FILTRATION RATE > 60.0 (>35); GLUCOSE, FASTING 122 MG/DL (70-100); MAGNESIUM LEVEL 2.1 MG/DL (1.8-2.4); POTASSIUM SERUM 3.8 MEQ/L (3.5-5.1); SODIUM LEVEL 140 MEQ/L (136-145)
[2019-04-21] MEDS: HEPARIN SOD (PORCINE) 5000 UNITS/ML VIAL SQ SCH ×2 (08:20→21:19)
[2019-04-21] MEDS ORDERED: GLUCAGON FOR INJ 1 MG VIAL (J1610) SC PRN (13:30)
[2019-04-21] MEDS ORDERED: DEXTROSE 50% 50 ML SYRINGE IV PRN (13:30)
[2019-04-21] MEDS ORDERED: GLUCOSE 4 GM CHEW TABLET PO PRN (13:30)
--- NOTE | 2019-04-21 13:36 | IPNPDOC ---
Subjective Date Seen The patient was seen on 04/21/19. Subjective Chief Complaint/HPI Patient seen and examined at the bedside. Denies any acute complaints from the PEG tube site. No overnight events noted. Objective Physical Examination General Exam: Positive: Alert, Cooperative, No Acute Distress ENT Exam: Positive: Atraumatic, Mucous membr. moist/pink Chest Exam: Positive: Clear to auscultation, Normal air movement Heart Exam: Positive: Rate Normal, Normal S1, Normal S2 Abdomen Exam: Positive: Soft, Other (+PEG Tube, active bowel sounds. 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 This therapy ordered for functional optimization. VS, I&O, 24H, Fishbone Vital Signs/I&O Vital Signs Date Time Temp Pulse Resp B/P (MAP) Pulse Ox O2 Delivery O2 Flow Rate FiO2 04/21/19 12:00 97.8 72 22 123/87 (99) 94 04/21/19 08:00 3.0 04/19/19 13:45 Room Air I&O- Last 24 Hours up to 6 AM 04/21/19 06:00 Intake Total 3585 ml Output Total 1500 ml Balance 2085 ml Laboratory Data 24H LABS Laboratory Tests 2 04/21/19 04:03: Nucleated Red Blood Cells % (auto) 0.0, Anion Gap 5L, Glomerular Filtration Rate > 60.0, Blood Urea Nitrogen 7, Creatinine 0.55L, Sodium Level 140, Potassium Level 3.8#, Chloride Level 106, Carbon Dioxide Level 29, Calcium Level 7.5L, Magnesium Level 2.1 CBC/BMP Laboratory Tests 04/21/19 04:03 Red Blood Count 4.26 L, Mean Corpuscular Volume 88.5, Mean Corpuscular Hemoglobin 29.3, Mean Corpuscular Hemoglobin Concent 33.2, Red Cell Distribution Width 13.8, Calcium Level 7.5 L KAYLAN LYMAN MD Apr 21, 2019 13:36
[2019-04-21] MEDS: DOCUSATE SODIUM 100 MG CAP PO SCH (14:00)
[2019-04-21] MEDS: OMEPRAZOLE 20 MG CAP PO SCH (14:00)
[2019-04-21] MEDS: METOPROLOL TART 50 MG TAB PO SCH ×2 (14:00→21:20)
[2019-04-21] MEDS: ASPIRIN 81 MG ENTERIC TAB PO SCH (14:01)
[2019-04-21] MEDS: LevoFLOXacin IV 500 MG in APPROPRIATE DILUENT 1 EA IV SCH (14:01)
[2019-04-21] MEDS: HumaLOG INSULIN (NovoLOG) PER UNIT SC SCH ×2 (17:30→21:00)
[2019-04-21] MEDS: ALLOPURINOL 300 MG TAB PO SCH ×2 (21:00→21:21)
[2019-04-21] MEDS: LATANOPROST 0.005% OPHTH SOLN 2.5 ML OU SCH (21:19)
[2019-04-21] MEDS: SIMVASTATIN 20 MG TAB PO SCH (21:20)
[2019-04-21] MEDS: LOSARTAN 50 MG TAB PO SCH (21:20)
[2019-04-21] MEDS: DONEPEZIL 5 MG TAB PO SCH (21:21)
[2019-04-21] MEDS: amLODIPine 5 MG TAB PO SCH (21:21)
[2019-04-21] MEDS: DIGOXIN 0.125 MG TAB PO SCH (21:21)
[2019-04-22] MEDS: metroNIDAZOLE 500 MG in APPROPRIATE DILUENT 1 EA IV SCH (03:53)
[2019-04-22 04:00] VITALS: BP 135/83
[2019-04-22 05:12] LABS: HEMOGLOBIN 12.2 g/dl (13.5-17.5); MEAN CORPUSCULAR HEMOGLOBIN 29.5 pg (27.0-33.0); MEAN CORPUSCULAR VOLUME 89.4 fl (80.0-96.0); PLATELET COUNT, AUTOMATED 175 10^3/uL (150-450); RED BLOOD COUNT 4.14 10^6/uL (4.30-6.10); WHITE BLOOD COUNT 13.8 10^3/uL (4.0-10.0)
[2019-04-22 05:41] LABS: BLOOD UREA NITROGEN 8 MG/DL (7-18); CALCIUM LEVEL 7.7 MG/DL (8.8-10.2); CARBON DIOXIDE LEVEL 29 MEQ/L (21-32); CHLORIDE LEVEL 107 MEQ/L (98-107); CREATININE FOR GFR 0.56 MG/DL (0.70-1.30); GLOMERULAR FILTRATION RATE > 60.0 (>35); GLUCOSE, FASTING 90 MG/DL (70-100); POTASSIUM SERUM 3.5 MEQ/L (3.5-5.1); SODIUM LEVEL 142 MEQ/L (136-145)
[2019-04-22] MEDS: HumaLOG INSULIN (NovoLOG) PER UNIT SC SCH ×4 (07:30→21:00)
[2019-04-22 08:00] VITALS: BP 150/83
[2019-04-22] MEDS: HEPARIN SOD (PORCINE) 5000 UNITS/ML VIAL SQ SCH ×2 (08:10→21:02)
[2019-04-22] MEDS: ASPIRIN 81 MG ENTERIC TAB PO SCH (08:10)
[2019-04-22] MEDS: OMEPRAZOLE 20 MG CAP PO SCH (08:10)
[2019-04-22] MEDS: DOCUSATE SODIUM 100 MG CAP PO SCH (08:10)
[2019-04-22] MEDS: METOPROLOL TART 50 MG TAB PO SCH ×2 (08:11→21:05)
[2019-04-22 12:00] VITALS: BP 141/77
[2019-04-22] MEDS: LevoFLOXacin 500 MG TABLET PO SCH (12:46)
--- NOTE | 2019-04-22 13:11 | ECGEPIP ---
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
--- NOTE | 2019-04-22 13:21 | IPNPDOC ---
Subjective Date Seen The patient was seen on 04/22/19. Subjective Chief Complaint/HPI Patient seen and examined at the bedside. States that he has been able to tolerate a liquid diet without any acute complaints. His tube feeding rate is slowly being titrated upward, and the patient is without any acute complaints this morning. Objective Physical Examination General Exam: Positive: Alert, Cooperative, No Acute Distress ENT Exam: Positive: Atraumatic, Mucous membr. moist/pink Chest Exam: Positive: Clear to auscultation, Normal air movement Heart Exam: Positive: Rate Normal, Normal S1, Normal S2 Abdomen Exam: Positive: Soft, Other (+PEG Tube, active bowel sounds. 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 PT therapy ordered for functional optimization VS, I&O, 24H, Fishbone Vital Signs/I&O Vital Signs Date Time Temp Pulse Resp B/P (MAP) Pulse Ox O2 Delivery O2 Flow Rate FiO2 04/22/19 08:11 69 150/83 04/22/19 08:00 98.1 20 94 04/21/19 16:00 3.0 04/19/19 13:45 Room Air I&O- Last 24 Hours up to 6 AM 04/22/19 06:00 Intake Total 1420 ml Output Total 1525 ml Balance -105 ml Laboratory Data 24H LABS Laboratory Tests 2 04/21/19 17:10: Bedside Glucose (Misc Panel) 110 04/21/19 21:17: Bedside Glucose (Misc Panel) 101 04/22/19 04:42: Nucleated Red Blood Cells % (auto) 0.0, Anion Gap 6L, Glomerular Filtration Rate > 60.0, Blood Urea Nitrogen 8, Creatinine 0.56L, Sodium Level 142, Potassium Lev el 3.5, Chloride Level 107, Carbon Dioxide Level 29, Calcium Level 7.7L, Magnesium Level 2.0 04/22/19 12:12: Bedside Glucose (Misc Panel) 100 CBC/BMP Laboratory Tests 04/22/19 04:42 Red Blood Count 4.14 L, Mean Corpuscular Volume 89.4, Mean Corpuscular Hemoglo bin 29.5, Mean Corpuscular Hemoglobin Concent 33.0, Red Cell Distribution Width 14.0, Calcium Level 7.7 L KAYLAN LYMAN MD Apr 22, 2019 13:21
[2019-04-22] MEDS: metroNIDAZOLE (FLAGYL) 500 MG TAB PO SCH ×2 (15:04→21:03)
[2019-04-22 16:00] VITALS: BP 102/65
[2019-04-22 20:00] VITALS: BP 117/73
[2019-04-22] MEDS: amLODIPine 5 MG TAB PO SCH (21:03)
[2019-04-22] MEDS: DONEPEZIL 5 MG TAB PO SCH (21:03)
[2019-04-22] MEDS: LATANOPROST 0.005% OPHTH SOLN 2.5 ML OU SCH (21:03)
[2019-04-22] MEDS: SIMVASTATIN 20 MG TAB PO SCH (21:04)
[2019-04-22] MEDS: LOSARTAN 50 MG TAB PO SCH (21:04)
[2019-04-22] MEDS: DIGOXIN 0.125 MG TAB PO SCH (21:04)
[2019-04-22] MEDS: ALLOPURINOL 300 MG TAB PO SCH (21:05)
[2019-04-22 23:59] VITALS: BP 139/77
[2019-04-23 04:00] VITALS: BP 130/80
[2019-04-23 05:40] LABS: HEMATOCRIT 40.7 % (42.0-52.0); HEMOGLOBIN 13.3 g/dl (13.5-17.5); MEAN CORPUSCULAR HGB CONC 32.7 g/dl (32.0-36.5); MEAN CORPUSCULAR VOLUME 91.7 fl (80.0-96.0); PLATELET COUNT, AUTOMATED 173 10^3/uL (150-450); RED BLOOD COUNT 4.44 10^6/uL (4.30-6.10); WHITE BLOOD COUNT 14.6 10^3/uL (4.0-10.0)
[2019-04-23 05:59] LABS: BLOOD UREA NITROGEN 9 MG/DL (7-18); CALCIUM LEVEL 7.7 MG/DL (8.8-10.2); CARBON DIOXIDE LEVEL 29 MEQ/L (21-32); CHLORIDE LEVEL 106 MEQ/L (98-107); CREATININE FOR GFR 0.55 MG/DL (0.70-1.30); GLOMERULAR FILTRATION RATE > 60.0 (>35); GLUCOSE, FASTING 79 MG/DL (70-100); MAGNESIUM LEVEL 1.8 MG/DL (1.8-2.4); POTASSIUM SERUM 3.7 MEQ/L (3.5-5.1); SODIUM LEVEL 139 MEQ/L (136-145)
[2019-04-23] MEDS: LevoFLOXacin 500 MG TABLET PO SCH (06:07)
[2019-04-23] MEDS: metroNIDAZOLE (FLAGYL) 500 MG TAB PO SCH ×3 (06:07→20:53)
[2019-04-23 08:00] VITALS: BP 130/81
[2019-04-23] MEDS: HumaLOG INSULIN (NovoLOG) PER UNIT SC SCH ×4 (09:19→21:00)
[2019-04-23] MEDS: OMEPRAZOLE 20 MG CAP PO SCH (09:19)
[2019-04-23] MEDS: ASPIRIN 81 MG ENTERIC TAB PO SCH (09:19)
[2019-04-23] MEDS: HEPARIN SOD (PORCINE) 5000 UNITS/ML VIAL SQ SCH ×2 (09:20→20:54)
[2019-04-23] MEDS: SODIUM CHLORIDE 0.9% INJ 10 ML SYR IV SCH (09:20)
[2019-04-23] MEDS: METOPROLOL TART 50 MG TAB PO SCH ×2 (09:20→20:53)
[2019-04-23] MEDS: DOCUSATE SODIUM 100 MG CAP PO SCH (09:20)
[2019-04-23 12:00] VITALS: BP 119/79
--- NOTE | 2019-04-23 12:56 | IPNPDOC ---
Subjective Date Seen The patient was seen on 04/23/19. Subjective Chief Complaint/HPI Patient seen and examined at the bedside. No acute overnight events noted. Patient states that he is tolerating a by mouth diet without any acute complaints. He notes that he had 2 solid BMs yesterday. He is to be seen by physical therapy today for further functional optimization. Objective Physical Examination General Exam: Positive: Alert, Cooperative, No Acute Distress ENT Exam: Positive: Atraumatic, Mucous membr. moist/pink Chest Exam: Positive: Clear to auscultation, Normal air movement Heart Exam: Positive: Rate Normal, Normal S1, Normal S2 Abdomen Exam: Positive: Soft, Other (+PEG Tube, active bowel sounds. 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 Arroyo of GI Dietary consulted for PEG tube feeding optimization Diet advancing as tolerated, patient not having any issues at this time. Notes that he had two BMs yesterday We will cont to monitor Aspiration PNA 2/2 Above On Levaquin, Flagyl We will cont to monitor Persistent Leukocytosis Clinically patient is feeling well, and is not displaying any worsening symptoms of underlying PNA Denies any history of taking neupogen, steroids recently Has remained afebilre Possibly 2/2 Underlying Metastatic Ca? 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 PT therapy ordered for functional optimization VS, I&O, 24H, Fishbone Vital Signs/I&O Vital Signs Date Time Temp Pulse Resp B/P (MAP) Pulse Ox O2 Delivery O2 Flow Rate FiO2 04/23/19 12:00 98.5 68 18 119/79 (92) 94 04/21/19 16:00 3.0 04/19/19 13:45 Room Air I&O- Last 24 Hours up to 6 AM 04/23/19 05:59 Intake Total 1300 ml Output Total 1050 ml Balance 250 ml Laboratory Data 24H LABS Laboratory Tests 2 04/22/19 17:16: Bedside Glucose (Misc Panel) 137H 04/22/19 20:55: Bedside Glucose (Misc Panel) 76L 04/23/19 05:09: Nucleated Red Blood Cells % (auto) 0.0, Anion Gap 4L, Glomerular Filtration Rate > 60.0, Blood Urea Nitrogen 9, Creatinine 0.55L, Sodium Level 139, Potassium Level 3.7, Chloride Level 106, Carbon Dioxide Level 29, Calcium Level 7.7L, Magnesium Level 1.8 04/23/19 11:50: Bedside Glucose (Misc Panel) 88 CBC/BMP Laboratory Tests 04/23/19 05:09 Red Blood Count 4.44, Mean Corpuscular Volume 91.7, Mean Corpuscular Hemoglobin 30.0, Mean Corpuscular Hemoglobin Concent 32.7, Red Cell Distribution Width 13.9, Calcium Level 7.7 L KAYLAN LYMAN MD Apr 23, 2019 12:56
[2019-04-23 16:00] VITALS: BP 131/72
[2019-04-23 20:00] VITALS: BP 111/68
[2019-04-23] MEDS: DIGOXIN 0.125 MG TAB PO SCH (20:52)
[2019-04-23] MEDS: SIMVASTATIN 20 MG TAB PO SCH (20:52)
[2019-04-23] MEDS: LOSARTAN 50 MG TAB PO SCH (20:52)
[2019-04-23] MEDS: ALLOPURINOL 300 MG TAB PO SCH (20:52)
[2019-04-23] MEDS: amLODIPine 5 MG TAB PO SCH (20:53)
[2019-04-23] MEDS: DONEPEZIL 5 MG TAB PO SCH (20:53)
[2019-04-23] MEDS: LATANOPROST 0.005% OPHTH SOLN 2.5 ML OU SCH (20:54)
[2019-04-23 23:59] VITALS: BP 126/70
[2019-04-24 04:00] VITALS: BP 116/70
[2019-04-24] MEDS: metroNIDAZOLE (FLAGYL) 500 MG TAB PO SCH ×3 (05:11→21:10)
[2019-04-24] MEDS: LevoFLOXacin 500 MG TABLET PO SCH (05:11)
[2019-04-24 05:14] LABS: HEMATOCRIT 37.8 % (42.0-52.0); HEMOGLOBIN 12.3 g/dl (13.5-17.5); MEAN CORPUSCULAR HGB CONC 32.5 g/dl (32.0-36.5); MEAN CORPUSCULAR VOLUME 92.2 fl (80.0-96.0); PLATELET COUNT, AUTOMATED 174 10^3/uL (150-450); WHITE BLOOD COUNT 11.3 10^3/uL (4.0-10.0)
[2019-04-24 05:39] LABS: BLOOD UREA NITROGEN 9 MG/DL (7-18); CALCIUM LEVEL 7.7 MG/DL (8.8-10.2); CARBON DIOXIDE LEVEL 32 MEQ/L (21-32); CHLORIDE LEVEL 105 MEQ/L (98-107); CREATININE FOR GFR 0.54 MG/DL (0.70-1.30); GLOMERULAR FILTRATION RATE > 60.0 (>35); GLUCOSE, FASTING 98 MG/DL (70-100); MAGNESIUM LEVEL 1.9 MG/DL (1.8-2.4); POTASSIUM SERUM 3.9 MEQ/L (3.5-5.1); SODIUM LEVEL 141 MEQ/L (136-145)
[2019-04-24] MEDS: HumaLOG INSULIN (NovoLOG) PER UNIT SC SCH ×4 (07:30→21:00)
[2019-04-24 08:00] VITALS: BP 122/60
[2019-04-24] MEDS: SODIUM CHLORIDE 0.9% INJ 10 ML SYR IV SCH (08:33)
[2019-04-24] MEDS: HEPARIN SOD (PORCINE) 5000 UNITS/ML VIAL SQ SCH ×2 (08:34→20:26)
[2019-04-24] MEDS: METOPROLOL TART 50 MG TAB PO SCH ×2 (08:35→20:30)
[2019-04-24] MEDS: DOCUSATE SODIUM 100 MG CAP PO SCH (08:35)
[2019-04-24] MEDS: OMEPRAZOLE 20 MG CAP PO SCH (08:36)
[2019-04-24] MEDS: ASPIRIN 81 MG ENTERIC TAB PO SCH (08:36)
--- NOTE | 2019-04-24 09:57 | IPNPDOC ---
Subjective Date Seen The patient was seen on 04/24/19. Subjective Chief Complaint/HPI Patient seen and examined at the bedside. No acute overnight events noted. Patient tolerating a diet without any acute complaints. Objective Physical Examination General Exam: Positive: Alert, Cooperative, No Acute Distress ENT Exam: Positive: Atraumatic, Mucous membr. moist/pink Chest Exam: Positive: Clear to auscultation, Normal air movement Heart Exam: Positive: Rate Normal, Normal S1, Normal S2 Abdomen Exam: Positive: Soft, Other (+PEG Tube, active bowel sounds. 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 Arroyo of GI Dietary consult appreciated for PEG tube feeding optimization Diet advancing as tolerated, patient not having any issues at this time. Notes that he had two BMs yesterday We will cont to monitor Aspiration PNA 2/2 Above On Levaquin, Flagyl day 03/27 We will cont to monitor Persistent Leukocytosis, improving Clinically patient is feeling well, and is not displaying any worsening symptoms of underlying PNA Denies any history of taking neupogen, steroids recently Has remained afebilre Possibly 2/2 Underlying Metastatic Ca? 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 PT therapy ordered for functional optimization--Patient to likely require STR. VS, I&O, 24H, Fishbone Vital Signs/I&O Vital Signs Date Time Temp Pulse Resp B/P (MAP) Pulse Ox O2 Delivery O2 Flow Rate FiO2 04/24/19 08:35 73 121/60 04/24/19 04:00 97.8 16 93 04/21/19 16:00 3.0 04/19/19 13:45 Room Air I&O- Last 24 Hours up to 6 AM 04/24/19 06:00 Intake Total 540 ml Output Total 575 ml Balance -35 ml Laboratory Data 24H LABS Laboratory Tests 2 04/23/19 11:50: Bedside Glucose (Misc Panel) 88 04/23/19 17:04: Bedside Glucose (Misc Panel) 113H 04/23/19 21:05: Bedside Glucose (Misc Panel) 146H 04/24/19 04:31: Nucleated Red Blood Cells % (auto) 0.0, Anion Gap 4L, Glomerular Filtration Rate > 60.0, Blood Urea Nitrogen 9, Creatinine 0.54L, Sodium Level 141, Potassium Level 3.9, Chloride Level 105, Carbon Dioxide Level 32, Calcium Level 7.7L, Magnesium Level 1.9 CBC/BMP Laboratory Tests 04/24/19 04:31 Red Blood Count 4.10 L, Mean Corpuscular Volume 92.2, Mean Corpuscular Hemoglobin 30.0, Mean Corpuscular Hemoglobin Concent 32.5, Red Cell Distribution Width 14.3, Calcium Level 7.7 L KAYLAN LYMAN MD Apr 24, 2019 09:57
[2019-04-24 12:00] VITALS: BP 123/79
[2019-04-24 16:00] VITALS: BP 120/70
[2019-04-24 20:00] VITALS: BP 105/62
[2019-04-24] MEDS: SIMVASTATIN 20 MG TAB PO SCH (20:26)
[2019-04-24] MEDS: DIGOXIN 0.125 MG TAB PO SCH (20:30)
[2019-04-24] MEDS: LOSARTAN 50 MG TAB PO SCH (20:31)
[2019-04-24] MEDS: DONEPEZIL 5 MG TAB PO SCH (20:31)
[2019-04-24] MEDS: amLODIPine 5 MG TAB PO SCH (20:32)
[2019-04-24] MEDS: ALLOPURINOL 300 MG TAB PO SCH (20:32)
[2019-04-24] MEDS: LATANOPROST 0.005% OPHTH SOLN 2.5 ML OU SCH (20:32)
[2019-04-24 23:59] VITALS: BP 122/74
[2019-04-25 04:00] VITALS: BP 142/75
[2019-04-25] MEDS: LevoFLOXacin 500 MG TABLET PO SCH (05:08)
[2019-04-25] MEDS: metroNIDAZOLE (FLAGYL) 500 MG TAB PO SCH ×3 (05:08→21:21)
[2019-04-25 05:37] LABS: HEMATOCRIT 36.7 % (42.0-52.0); MEAN CORPUSCULAR HEMOGLOBIN 29.5 pg (27.0-33.0); MEAN CORPUSCULAR HGB CONC 32.7 g/dl (32.0-36.5); MEAN CORPUSCULAR VOLUME 90.2 fl (80.0-96.0); PLATELET COUNT, AUTOMATED 194 10^3/uL (150-450); RED BLOOD COUNT 4.07 10^6/uL (4.30-6.10); WHITE BLOOD COUNT 11.8 10^3/uL (4.0-10.0)
[2019-04-25 06:03] LABS: BLOOD UREA NITROGEN 11 MG/DL (7-18); CALCIUM LEVEL 7.9 MG/DL (8.8-10.2); CARBON DIOXIDE LEVEL 29 MEQ/L (21-32); CHLORIDE LEVEL 107 MEQ/L (98-107); CREATININE FOR GFR 0.56 MG/DL (0.70-1.30); GLOMERULAR FILTRATION RATE > 60.0 (>35); GLUCOSE, FASTING 81 MG/DL (70-100); MAGNESIUM LEVEL 1.8 MG/DL (1.8-2.4); POTASSIUM SERUM 3.9 MEQ/L (3.5-5.1); SODIUM LEVEL 142 MEQ/L (136-145)
[2019-04-25] MEDS: HumaLOG INSULIN (NovoLOG) PER UNIT SC SCH ×4 (07:30→20:49)
[2019-04-25 08:00] VITALS: BP 140/76
[2019-04-25] MEDS: METOPROLOL TART 50 MG TAB PO SCH ×2 (09:00→21:22)
[2019-04-25] MEDS: SODIUM CHLORIDE 0.9% INJ 10 ML SYR IV SCH (09:59)
[2019-04-25] MEDS: OMEPRAZOLE 20 MG CAP PO SCH (10:00)
[2019-04-25] MEDS: HEPARIN SOD (PORCINE) 5000 UNITS/ML VIAL SQ SCH ×2 (10:00→21:21)
[2019-04-25] MEDS: DOCUSATE SODIUM 100 MG CAP PO SCH (10:01)
[2019-04-25] MEDS: ASPIRIN 81 MG ENTERIC TAB PO SCH (10:01)
[2019-04-25 12:00] VITALS: BP 136/84
[2019-04-25 16:00] VITALS: BP 128/76
[2019-04-25 20:00] VITALS: BP 128/79
[2019-04-25] MEDS: LATANOPROST 0.005% OPHTH SOLN 2.5 ML OU SCH (21:21)
[2019-04-25] MEDS: amLODIPine 5 MG TAB PO SCH (21:21)
[2019-04-25] MEDS: ALLOPURINOL 300 MG TAB PO SCH (21:22)
[2019-04-25] MEDS: DIGOXIN 0.125 MG TAB PO SCH (21:22)
[2019-04-25] MEDS: SIMVASTATIN 20 MG TAB PO SCH (21:22)
[2019-04-25] MEDS: DONEPEZIL 5 MG TAB PO SCH (21:22)
[2019-04-25] MEDS: LOSARTAN 50 MG TAB PO SCH (21:22)
--- NOTE | 2019-04-25 22:03 | IPNPDOC ---
Subjective Date Seen The patient was seen on 04/25/19. Subjective Chief Complaint/HPI Pt was seen and examined at bedside. No acute distress. Denies any acute complaints. General: Reports: Normal Appetite; Denies: Chills, Night Sweats, Fatigue, Malaise Constitutional: Denies: Chills, Fever, Night Sweats Eyes: Denies: Pain, Vision change ENT: Denies: Head Aches, Ear Pain, Dysphagia Skin: Denies: Rash, Lesions, Breakdown Pulmonary: Denies: Dyspnea, Cough Cardiovascular: Denies: Chest Pain, Palpitations, Orthopnea, Paroxysmal Noc. Dyspnea, Lt Headedness Gastrointestinal: Denies: Nausea, Vomiting, Abdominal Pain, Diarrhea, Constipation Genitourinary: Denies: Dysuria, Frequency, Incontinence, Retention Objective Physical Examination General Exam: Positive: Alert, Cooperative, No Acute Distress ENT Exam: Positive: Atraumatic, Mucous membr. moist/pink Chest Exam: Positive: Clear to auscultation, Normal air movement Heart Exam: Positive: Rate Normal, Normal S1, Normal S2 Abdomen Exam: Positive: Soft, Other (+PEG Tube, active bowel sounds. No bleeding noted from site); Negative: Tenderness Extremity Exam: Negative: Tenderness, Swelling Assessment /Plan Assessment Pt is 78 y/o M with Hx of esophageal ca s/p stent placement , admitted due to displacement of the stent. Pt underwent new stent placement along with PEG tube during current admission. Pt is tolerating PEG feeding well. Will consult medical oncologist for any further cancer targeted therapy and discussion for further placement goals/plans. Plan/VTE VTE Prophylaxis Ordered?: Yes VS, I&O, 24H, Fishbone Vital Signs/I&O Vital Signs Date Time Temp Pulse Resp B/P (MAP) Pulse Ox O2 Delivery O2 Flow Rate FiO2 04/25/19 21:22 101 04/25/19 21:22 128/79 04/25/19 20:00 98.6 20 93 04/21/19 16:00 3.0 04/19/19 13:45 Room Air I&O- Last 24 Hours up to 6 AM 04/25/19 06:00 Intake Total 1220 ml Output Total 650 ml Balance 570 ml Laboratory Data 24H LABS Laboratory Tests 2 04/25/19 05:02: Nucleated Red Blood Cells % (auto) 0.0, Anion Gap 6L, Glomerular Filtration Rate > 60.0, Blood Urea Nitrogen 11, Creatinine 0.56L, Sodium Level 142, Potassium Level 3.9, Chloride Level 107, Carbon Dioxide Level 29, Calcium Level 7.9L, Magnesium Level 1.8 04/25/19 12:30: Bedside Glucose (Misc Panel) 119H 04/25/19 17:36: Bedside Glucose (Misc Panel) 113H 04/25/19 19:49: Bedside Glucose (Misc Panel) 164H CBC/BMP Laboratory Tests 04/25/19 05:02 Red Blood Count 4.07 L, Mean Corpuscular Volume 90.2, Mean Corpuscular Hemoglobin 29.5, Mean Corpuscular Hemoglobin Concent 32.7, Red Cell Distribution Width 14.4, Calcium Level 7.9 L MATI COOPER MD Apr 25, 2019 22:03
[2019-04-25 23:59] VITALS: BP 111/71
[2019-04-26 04:00] VITALS: BP 147/87
[2019-04-26] MEDS: SODIUM CHLORIDE 0.9% INJ 10 ML SYR IV PRN (05:03)
[2019-04-26 05:35] LABS: HEMATOCRIT 38.8 % (42.0-52.0); HEMOGLOBIN 12.9 g/dl (13.5-17.5); MEAN CORPUSCULAR HEMOGLOBIN 29.9 pg (27.0-33.0); MEAN CORPUSCULAR HGB CONC 33.2 g/dl (32.0-36.5); MEAN CORPUSCULAR VOLUME 89.8 fl (80.0-96.0); PLATELET COUNT, AUTOMATED 222 10^3/uL (150-450); RED BLOOD COUNT 4.32 10^6/uL (4.30-6.10); WHITE BLOOD COUNT 13.2 10^3/uL (4.0-10.0)
[2019-04-26 05:50] LABS: ALBUMIN 2.4 GM/DL (3.2-5.2); ALT/SGPT 21 U/L (12-78); BILIRUBIN,TOTAL 0.2 MG/DL (0.2-1.0); BLOOD UREA NITROGEN 11 MG/DL (7-18); CALCIUM LEVEL 7.9 MG/DL (8.8-10.2); CARBON DIOXIDE LEVEL 30 MEQ/L (21-32); CHLORIDE LEVEL 106 MEQ/L (98-107); CREATININE FOR GFR 0.57 MG/DL (0.70-1.30); GLOMERULAR FILTRATION RATE > 60.0 (>35); GLUCOSE, FASTING 88 MG/DL (70-100); MAGNESIUM LEVEL 1.8 MG/DL (1.8-2.4); POTASSIUM SERUM 4.1 MEQ/L (3.5-5.1); SODIUM LEVEL 141 MEQ/L (136-145); TOTAL PROTEIN 5.7 GM/DL (6.4-8.2)
[2019-04-26] MEDS: metroNIDAZOLE (FLAGYL) 500 MG TAB PO SCH ×3 (06:08→21:19)
[2019-04-26] MEDS: LevoFLOXacin 500 MG TABLET PO SCH (06:08)
[2019-04-26 06:12] LABS: EOSINOPHILS 2 % (0-5); LYMPHOCYTES 12 % (16-52); MONOCYTES 6 % (0-8); NEUTROPHILS 80 % (35-75)
[2019-04-26 06:13] LABS: PLATELET ESTIMATE NORMAL (NORMAL)
[2019-04-26] MEDS: HumaLOG INSULIN (NovoLOG) PER UNIT SC SCH ×4 (07:16→21:00)
[2019-04-26 08:00] VITALS: BP 124/89
[2019-04-26] MEDS: SODIUM CHLORIDE 0.9% INJ 10 ML SYR IV SCH (09:52)
[2019-04-26] MEDS: HEPARIN SOD (PORCINE) 5000 UNITS/ML VIAL SQ SCH ×2 (09:53→21:19)
[2019-04-26] MEDS: ASPIRIN 81 MG ENTERIC TAB PO SCH (09:53)
[2019-04-26] MEDS: OMEPRAZOLE 20 MG CAP PO SCH (09:53)
[2019-04-26] MEDS: DOCUSATE SODIUM 100 MG CAP PO SCH (09:54)
[2019-04-26] MEDS: METOPROLOL TART 50 MG TAB PO SCH ×2 (09:54→21:19)
[2019-04-26 12:00] VITALS: BP 138/80
[2019-04-26 16:00] VITALS: BP 123/77
[2019-04-26 20:00] VITALS: BP 127/74
[2019-04-26] MEDS: LATANOPROST 0.005% OPHTH SOLN 2.5 ML OU SCH (21:19)
[2019-04-26] MEDS: SIMVASTATIN 20 MG TAB PO SCH (21:19)
[2019-04-26] MEDS: DONEPEZIL 5 MG TAB PO SCH (21:19)
[2019-04-26] MEDS: DIGOXIN 0.125 MG TAB PO SCH (21:19)
[2019-04-26] MEDS: ALLOPURINOL 300 MG TAB PO SCH (21:19)
[2019-04-26] MEDS: amLODIPine 5 MG TAB PO SCH (21:20)
[2019-04-26] MEDS: LOSARTAN 50 MG TAB PO SCH (21:20)
[2019-04-26 23:55] VITALS: BP 113/71
[2019-04-27 04:00] VITALS: BP 121/73
--- NOTE | 2019-04-27 04:12 | IPNPDOC ---
Text Note Date of Service The patient was seen on 04/26/19. NOTE Chief Complaint/HPI Pt was seen and examined at bedside. No acute distress. Denies any acute complaints. Pt tolerates feeding well. General: Reports: Normal Appetite; Denies: Chills, Night Sweats, Fatigue, Malaise Constitutional: Denies: Chills, Fever, Night Sweats Eyes: Denies: Pain, Vision change ENT: Denies: Head Aches, Ear Pain, Dysphagia Skin: Denies: Rash, Lesions, Breakdown Pulmonary: Denies: Dyspnea, Cough Cardiovascular: Denies: Chest Pain, Palpitations, Orthopnea, Paroxysmal Noc. Dyspnea, Lt Headedness Gastrointestinal: Denies: Nausea, Vomiting, Abdominal Pain, Diarrhea, Constipation Genitourinary: Denies: Dysuria, Frequency, Incontinence, Retention Physical Examination General Exam: Positive: Alert, Cooperative, No Acute Distress ENT Exam: Positive: Atraumatic, Mucous membr. moist/pink Chest Exam: Positive: Clear to auscultation, Normal air movement Heart Exam: Positive: Rate Normal, Normal S1, Normal S2 Abdomen Exam: Positive: Soft, Other (+PEG Tube, active bowel sounds. No ble eding noted from site); Negative: Tenderness Extremity Exam: Negative: Tenderness, Swelling Vital Signs Date Time Temp Pulse Resp B/P (MAP) Pulse Ox O2 Delivery O2 Flow Rate FiO2 04/27/19 01:37 98.6 04/26/19 23:55 99.6 75 18 113/71 (85) 94 04/26/19 21:20 127/74 04/26/19 21:20 87 127/74 04/26/19 21:19 87 04/26/19 21:19 87 127/74 04/26/19 20:00 99.3 87 20 127/74 (91) 93 04/26/19 16:00 98.4 83 16 123/77 (92) 94 04/26/19 12:00 98.2 69 18 138/80 (99) 94 04/26/19 09:54 84 130/78 04/26/19 08:00 98.2 88 16 124/89 (101) 94 Intake & Output 04/27/19 06:00 Intake Total 2210 ml Output Total 550 ml Balance 1660 ml Laboratory Tests 04/26/19 05:03: White Blood Count 13.2H, Red Blood Count 4.32, Hemoglobin 12.9L, Hematocrit 38.8L, Mean Corpuscular Volume 89.8, Mean Corpuscular Hemoglobin 29.9, Mean Corpuscular Hemoglobin Concent 33.2, Red Cell Distribution Width 14.4, Platelet Count 222, Nucleated Red Blood Cells % (auto) 0.0, Neutrophils 80H, Lymphocytes (Manual) 12L, Monocytes (Manual) 6, Eosinophils (Manual) 2, Platelet Estimate NORMAL, Red Blood Cell Morphology NORMAL, Blood Urea Nitrogen 11, Creatinine 0.57L, Sodium Level 141, Potassium Level 4.1, Chloride Level 106, Carbon Dioxide Level 30, Calcium Level 7.9L, Aspartate Amino Transf (AST/SGOT) 21, Alanine Aminotransferase (ALT/SGPT) 21, Alkaline Phosphatase 91, Total Bilirubin 0.2, Total Protein 5.7L, Albumin 2.4L, Anion Gap 5L, Glomerular Filtration Rate > 60.0, Fasting Glucose 88, Magnesium Level 1.8, Albumin/Globulin Ratio 0.73L 04/26/19 12:01: Bedside Glucose (Misc Panel) 99 04/26/19 16:51: Bedside Glucose (Misc Panel) 112H 04/26/19 20:10: Bedside Glucose (Misc Panel) 152H Current Medications Medications (Trade) Dose Ordered Sig/Perla Route PRN Reason Start Time Stop Time Status Last Admin Dose Admin Acetaminophen (Tylenol Tab) 650 mg Q4HP PRN PO PAIN OR FEVER 04/20/19 17:00 04/22/19 15:04 650 MG Allopurinol (Zyloprim) 300 mg QHS PO 04/21/19 21:00 04/26/19 21:19 300 MG Amlodipine Besylate (Norvasc) 5 mg QHS PO 04/21/19 21:00 04/26/19 21:20 5 MG Aspirin (Ecotrin) 81 mg DAILY PO 04/21/19 09:00 04/26/19 09:53 81 MG Digoxin (Lanoxin) 0.125 mg QHS PO 04/21/19 21:00 04/26/19 21:19 0.125 MG Docusate Sodium (Colace) 100 mg DAILY PO 04/21/19 09:00 04/26/19 09:54 100 MG Donepezil HCl (AriCEPT) 5 mg QHS PO 04/21/19 21:00 04/26/19 21:19 5 MG Heparin Sodium (Heparin (Flush)) 500 units ASDIRECTED PRN IV SEE LABEL COMMENTS 04/23/19 05:15 04/26/19 05:03 500 UNITS Heparin Sodium (Porcine) (Heparin) 5,000 units Q12H SQ 04/19/19 21:00 04/26/19 21:19 5,000 UNITS Insulin Human Lispro (HumaLOG INSULIN) SEE PROTOCOL TABLE AC SC 04/21/19 17:30 04/26/19 17:48 2 UNITS Latanoprost (Xalatan 0.005% Op Soln) 1 drop QHS OU 04/20/19 21:00 04/26/19 21:19 1 DROP Levofloxacin (Levaquin) 500 mg DAILY@06 PO 04/22/19 12:00 04/29/19 11:59 04/26/19 06:08 500 MG Losartan Potassium (Cozaar) 50 mg QHS PO 04/21/19 21:00 04/26/19 21:20 50 MG Metoprolol Tartrate (Lopressor) 50 mg BID PO 04/21/19 09:00 04/26/19 21:19 50 MG Metronidazole (Flagyl) 500 mg Q8H PO 04/22/19 14:00 04/26/19 21:19 500 MG Omeprazole (PriLOSEC) 40 mg DAILY PO 04/21/19 09:00 04/26/19 09:53 40 MG Simvastatin (Zocor) 20 mg QHS PO 04/21/19 21:00 04/26/19 21:19 20 MG Sodium Chloride (Saline Lock Flush) 10 ml ASDIRECTED PRN IV SEE LABEL COMMENTS 04/23/19 05:15 04/26/19 05:03 10 ML Assessment Pt is 78 y/o M with Hx of esophageal ca s/p stent placement , admitted due to displacement of the stent. Pt underwent new stent placement along with PEG tube during current admission. Pt is tolerating PEG feeding well. SW/CM on board for disposition as pt is optimized clinically for discharge. Discussed with Dr. Ella Turcios from oncology regarding further plans for cancer targeted therapy. Dr. Turcios on board to discuss with family and SW regarding their wishes as far as further chemotherapy versus comfort care measures. Will continue current supportive care , no change in meds. Plan/VTE VTE Prophylaxis Ordered?: Yes VS,Fishbone, I+O VS, Fishbone, I+O Laboratory Tests 04/26/19 05:03 Red Blood Count 4.32, Mean Corpuscular Volume 89.8, Mean Corpuscular Hemoglobin 29.9, Mean Corpuscular Hemoglobin Concent 33.2, Red Cell Distribution Width 14.4, Calcium Level 7.9 L, Aspartate Amino Transf (AST/SGOT) 21, Alanine Aminotransferase (ALT/SGPT) 21, Alkaline Phosphatase 91, Total Bilirubin 0.2, Total Protein 5.7 L, Albumin 2.4 L Vital Signs Date Time Temp Pulse Resp B/P (MAP) Pulse Ox O2 Delivery O2 Flow Rate FiO2 04/27/19 01:37 98.6 04/26/19 23:55 75 18 113/71 (85) 94 04/21/19 16:00 3.0 I&O- Last 24 Hours up to 6 AM 04/27/19 06:00 Intake Total 2210 ml Output Total 550 ml Balance 1660 ml MATI COOPER MD Apr 27, 2019 04:12
[2019-04-27] MEDS: LevoFLOXacin 500 MG TABLET PO SCH (05:45)
[2019-04-27] MEDS: metroNIDAZOLE (FLAGYL) 500 MG TAB PO SCH ×3 (05:45→21:06)
[2019-04-27 08:00] VITALS: BP 139/76
[2019-04-27] MEDS: ASPIRIN 81 MG ENTERIC TAB PO SCH (08:55)
[2019-04-27] MEDS: METOPROLOL TART 50 MG TAB PO SCH ×2 (08:56→20:50)
[2019-04-27] MEDS: OMEPRAZOLE 20 MG CAP PO SCH (08:56)
[2019-04-27] MEDS: DOCUSATE SODIUM 100 MG CAP PO SCH (08:56)
[2019-04-27] MEDS: HumaLOG INSULIN (NovoLOG) PER UNIT SC SCH ×4 (08:57→20:53)
[2019-04-27] MEDS: HEPARIN SOD (PORCINE) 5000 UNITS/ML VIAL SQ SCH ×2 (08:57→20:52)
[2019-04-27] MEDS: SODIUM CHLORIDE 0.9% INJ 10 ML SYR IV SCH (08:58)
[2019-04-27 12:00] VITALS: BP_SYST 114; BP_SYST 121; BP_DIAS 59; BP_DIAS 74
[2019-04-27 16:00] VITALS: BP 117/72
[2019-04-27 20:00] VITALS: BP 121/69
[2019-04-27] MEDS: ALLOPURINOL 300 MG TAB PO SCH (20:50)
[2019-04-27] MEDS: DIGOXIN 0.125 MG TAB PO SCH (20:51)
[2019-04-27] MEDS: amLODIPine 5 MG TAB PO SCH (20:51)
[2019-04-27] MEDS: SIMVASTATIN 20 MG TAB PO SCH (20:52)
[2019-04-27] MEDS: LOSARTAN 50 MG TAB PO SCH (20:52)
[2019-04-27] MEDS: DONEPEZIL 5 MG TAB PO SCH (20:52)
[2019-04-27] MEDS: LATANOPROST 0.005% OPHTH SOLN 2.5 ML OU SCH (20:53)
--- NOTE | 2019-04-27 23:22 | IPNPDOC ---
Text Note Date of Service The patient was seen on 04/27/19. NOTE Chief Complaint/HPI Pt was seen and examined at bedside. Denies any acute complaints. Pt tolerates feeding well. Subjective: General: Reports: Normal Appetite; Denies: Chills, Night Sweats, Fatigue, Malaise Constitutional: Denies: Chills, Fever, Night Sweats Eyes: Denies: Pain, Vision change ENT: Denies: Head Aches, Ear Pain, Dysphagia Skin: Denies: Rash, Lesions, Breakdown Pulmonary: Denies: Dyspnea, Cough Cardiovascular: Denies: Chest Pain, Palpitations, Orthopnea, Paroxysmal Noc. Dyspnea, Lt Headedness Gastrointestinal: Denies: Nausea, Vomiting, Abdominal Pain, Diarrhea, Constipation Genitourinary: Denies: Dysuria, Frequency, Incontinence, Retention Physical Examination General Exam: Positive: Alert, Cooperative, No Acute Distress ENT Exam: Positive: Atraumatic, Mucous membr. moist/pink Chest Exam: Positive: Clear to auscultation, Normal air movement Heart Exam: Positive: Rate Normal, Normal S1, Normal S2 Abdomen Exam: Positive: Soft, Other (+PEG Tube, active bowel sounds. No bleeding noted from site); Negative: Tenderness Extremity Exam: Negative: Tenderness, Swelling Vital Signs Date Time Temp Pulse Resp B/P (MAP) Pulse Ox O2 Delivery O2 Flow Rate FiO2 04/27/19 23:59 98.8 87 16 124/77 (93) 93 04/27/19 20:52 121/69 04/27/19 20:51 88 04/27/19 20:51 88 121/69 04/27/19 20:50 88 121/69 04/27/19 20:00 98.7 88 16 121/69 (86) 94 04/27/19 16:00 98.0 90 18 117/72 (87) 94 04/27/19 12:00 98.2 84 18 121/74 (90) 95 04/27/19 08:56 84 139/76 04/27/19 08:00 98.1 84 18 139/76 (97) 94 04/27/19 04:00 96.6 89 18 121/73 (89) 97 Intake & Output 04/28/19 06:00 Intake Total 2050 ml Output Total 1000 ml Balance 1050 ml Laboratory Tests 04/27/19 06:39: Bedside Glucose (Misc Panel) 103 04/27/19 11:42: Bedside Glucose (Misc Panel) 112H 04/27/19 16:44: Bedside Glucose (Misc Panel) 97 04/27/19 20:44: Bedside Glucose (Misc Panel) 164H Current Medications Medications (Trade) Dose Ordered Sig/Perla Route PRN Reason Start Time Stop Time Status Last Admin Dose Admin Acetaminophen (Tylenol Tab) 650 mg Q4HP PRN PO PAIN OR FEVER 04/20/19 17:00 04/22/19 15:04 650 MG Allopurinol (Zyloprim) 300 mg QHS PO 04/21/19 21:00 04/27/19 20:50 300 MG Amlodipine Besylate (Norvasc) 5 mg QHS PO 04/21/19 21:00 04/27/19 20:51 5 MG Aspirin (Ecotrin) 81 mg DAILY PO 04/21/19 09:00 04/27/19 08:55 81 MG Digoxin (Lanoxin) 0.125 mg QHS PO 04/21/19 21:00 04/27/19 20:51 0.125 MG Docusate Sodium (Colace) 100 mg DAILY PO 04/21/19 09:00 04/27/19 08:56 100 MG Donepezil HCl (AriCEPT) 5 mg QHS PO 04/21/19 21:00 04/27/19 20:52 5 MG Heparin Sodium (Heparin (Flush)) 500 units ASDIRECTED PRN IV SEE LABEL COMMENTS 04/23/19 05:15 04/26/19 05:03 500 UNITS Heparin Sodium (Porcine) (Heparin) 5,000 units Q12H SQ 04/19/19 21:00 04/27/19 20:52 5,000 UNITS Insulin Human Lispro (HumaLOG INSULIN) SEE PROTOCOL TABLE AC SC 04/21/19 17:30 04/27/19 12:50 2 UNITS Latanoprost (Xalatan 0.005% Op Soln) 1 drop QHS OU 04/20/19 21:00 04/27/19 20:53 1 DROP Levofloxacin (Levaquin) 500 mg DAILY@06 PO 04/22/19 12:00 04/29/19 11:59 04/27/19 05:45 500 MG Losartan Potassium (Cozaar) 50 mg QHS PO 04/21/19 21:00 04/27/19 20:52 50 MG Metoprolol Tartrate (Lopressor) 50 mg BID PO 04/21/19 09:00 04/27/19 20:50 50 MG Metronidazole (Flagyl) 500 mg Q8H PO 04/22/19 14:00 04/27/19 21:06 500 MG Omeprazole (PriLOSEC) 40 mg DAILY PO 04/21/19 09:00 04/27/19 08:56 40 MG Simvastatin (Zocor) 20 mg QHS PO 04/21/19 21:00 04/27/19 20:52 20 MG Sodium Chloride (Saline Lock Flush) 10 ml ASDIRECTED PRN IV SEE LABEL COMMENTS 04/23/19 05:15 04/26/19 05:03 10 ML Assessment Pt is 78 y/o M with Hx of esophageal ca s/p stent placement , admitted due to displacement of the stent. Pt underwent new stent placement along with PEG tube during current admission. Pt is tolerating PEG feeding well. SW/CM on board for disposition as pt is optimized clinically for discharge. Discussed with Dr. Ella Turcios from oncology regarding further plans for cancer targeted therapy. Dr. Turcios on board to discuss with family and SW regarding their wishes as far as further chemotherapy versus comfort care measures. Will continue current supportive care , no change in meds. VS,Fishbone, I+O VS, Fishbone, I+O Vital Signs Date Time Temp Pulse Resp B/P (MAP) Pulse Ox O2 Delivery O2 Flow Rate FiO2 04/27/19 20:52 121/69 04/27/19 20:51 88 04/27/19 20:00 98.7 16 94 04/21/19 16:00 3.0 I&O- Last 24 Hours up to 6 AM 04/27/19 06:00 Intake Total 2210 ml Output Total 550 ml Balance 1660 ml MATI COOPER MD Apr 27, 2019 23:22
[2019-04-27 23:59] VITALS: BP 124/77
[2019-04-28 04:00] VITALS: BP 145/86
[2019-04-28] MEDS: metroNIDAZOLE (FLAGYL) 500 MG TAB PO SCH ×3 (06:02→21:10)
[2019-04-28] MEDS: LevoFLOXacin 500 MG TABLET PO SCH (06:02)
[2019-04-28] MEDS: HumaLOG INSULIN (NovoLOG) PER UNIT SC SCH ×4 (07:05→21:00)
[2019-04-28 08:00] VITALS: BP 98/58
[2019-04-28] MEDS: METOPROLOL TART 50 MG TAB PO SCH ×2 (09:00→20:57)
[2019-04-28] MEDS: OMEPRAZOLE 20 MG CAP PO SCH (09:50)
[2019-04-28] MEDS: DOCUSATE SODIUM 100 MG CAP PO SCH (09:50)
[2019-04-28] MEDS: ASPIRIN 81 MG ENTERIC TAB PO SCH (09:50)
[2019-04-28] MEDS: HEPARIN SOD (PORCINE) 5000 UNITS/ML VIAL SQ SCH ×2 (09:51→21:00)
[2019-04-28] MEDS: SODIUM CHLORIDE 0.9% INJ 10 ML SYR IV SCH (09:52)
[2019-04-28 12:00] VITALS: BP 113/67
[2019-04-28 16:00] VITALS: BP 128/60
--- NOTE | 2019-04-28 18:50 | IPNPDOC ---
Text Note Date of Service The patient was seen on 04/28/19. NOTE Pt was seen and examined at bedside. Pt with flat mood. Denies any complaints. Subjective: General: Reports: Normal Appetite; Denies: Chills, Night Sweats, Fatigue, Malaise Constitutional: Denies: Chills, Fever, Night Sweats Eyes: Denies: Pain, Vision change ENT: Denies: Head Aches, Ear Pain, Dysphagia Skin: Denies: Rash, Lesions, Breakdown Pulmonary: Denies: Dyspnea, Cough Cardiovascular: Denies: Chest Pain, Palpitations, Orthopnea, Paroxysmal Noc. Dyspnea, Lt Headedness Gastrointestinal: Denies: Nausea, Vomiting, Abdominal Pain, Diarrhea, Constipation Genitourinary: Denies: Dysuria, Frequency, Incontinence, Retention Physical Examination General Exam: Positive: Alert, Cooperative, No Acute Distress ENT Exam: Positive: Atraumatic, Mucous membr. moist/pink Chest Exam: Positive: Clear to auscultation, Normal air movement Heart Exam: Positive: Rate Normal, Normal S1, Normal S2 Abdomen Exam: Positive: Soft, Other (+PEG Tube, active bowel sounds. No bleeding noted from site); Negative: Tenderness Extremity Exam: Negative: Tenderness, Swelling Vital Signs Date Time Temp Pulse Resp B/P (MAP) Pulse Ox O2 Delivery O2 Flow Rate FiO2 04/28/19 16:00 98.0 82 18 128/60 (82) 95 04/28/19 12:00 98.1 101 18 113/67 (82) 95 04/28/19 09:00 96 98/58 04/28/19 08:00 98.2 96 18 98/58 (71) 94 04/28/19 04:00 97.9 89 18 145/86 (105) 93 04/27/19 23:59 98.8 87 16 124/77 (93) 93 04/27/19 20:52 121/69 04/27/19 20:51 88 04/27/19 20:51 88 121/69 04/27/19 20:50 88 121/69 04/27/19 20:00 98.7 88 16 121/69 (86) 94 Intake & Output 04/28/19 06:00 Intake Total 2050 ml Output Total 100 ml Balance 1950 ml Laboratory Tests 04/27/19 20:44: Bedside Glucose (Misc Panel) 164H 04/28/19 06:01: Bedside Glucose (Misc Panel) 93 04/28/19 11:56: Bedside Glucose (Misc Panel) 125H 04/28/19 17:07: Bedside Glucose (Misc Panel) 127H Current Medications Medications (Trade) Dose Ordered Sig/Perla Route PRN Reason Start Time Stop Time Status Last Admin Dose Admin Acetaminophen (Tylenol Tab) 650 mg Q4HP PRN PO PAIN OR FEVER 04/20/19 17:00 04/22/19 15:04 650 MG Allopurinol (Zyloprim) 300 mg QHS PO 04/21/19 21:00 04/27/19 20:50 300 MG Amlodipine Besylate (Norvasc) 5 mg QHS PO 04/21/19 21:00 04/27/19 20:51 5 MG Aspirin (Ecotrin) 81 mg DAILY PO 04/21/19 09:00 04/28/19 09:50 81 MG Digoxin (Lanoxin) 0.125 mg QHS PO 04/21/19 21:00 04/27/19 20:51 0.125 MG Docusate Sodium (Colace) 100 mg DAILY PO 04/21/19 09:00 04/28/19 09:50 100 MG Donepezil HCl (AriCEPT) 5 mg QHS PO 04/21/19 21:00 04/27/19 20:52 5 MG Heparin Sodium (Heparin (Flush)) 500 units ASDIRECTED PRN IV SEE LABEL COMMENTS 04/23/19 05:15 04/26/19 05:03 500 UNITS Heparin Sodium (Porcine) (Heparin) 5,000 units Q12H SQ 04/19/19 21:00 04/28/19 09:51 5,000 UNITS Insulin Human Lispro (HumaLOG INSULIN) SEE PROTOCOL TABLE AC SC 04/21/19 17:30 04/28/19 17:14 2 UNITS Latanoprost (Xalatan 0.005% Op Soln) 1 drop QHS OU 04/20/19 21:00 04/27/19 20:53 1 DROP Levofloxacin (Levaquin) 500 mg DAILY@06 PO 04/22/19 12:00 04/29/19 11:59 04/28/19 06:02 500 MG Losartan Potassium (Cozaar) 50 mg QHS PO 04/21/19 21:00 04/27/19 20:52 50 MG Metoprolol Tartrate (Lopressor) 50 mg BID PO 04/21/19 09:00 04/27/19 20:50 50 MG Metronidazole (Flagyl) 500 mg Q8H PO 04/22/19 14:00 04/28/19 14:54 500 MG Omeprazole (PriLOSEC) 40 mg DAILY PO 04/21/19 09:00 04/28/19 09:50 40 MG Simvastatin (Zocor) 20 mg QHS PO 04/21/19 21:00 04/27/19 20:52 20 MG Sodium Chloride (Saline Lock Flush) 10 ml ASDIRECTED PRN IV SEE LABEL COMMENTS 04/23/19 05:15 04/26/19 05:03 10 ML Assessment Pt is 78 y/o M with Hx of esophageal ca s/p stent placement , admitted due to displacement of the stent. Pt underwent new stent placement along with PEG tube during current admission. Pt is tolerating PEG feeding well. SW/CM on board for disposition as pt is optimized clinically for discharge. Discussed with Dr. Ella Turcios from oncology regarding further plans for cancer targeted therapy. Dr. Turcios on board to discuss with family and SW regarding their wishes as far as further chemotherapy versus comfort care measures. Will continue current supportive care , no change in meds. Cont tube feeding. Pt can receive meds via PEG tube. VS,Fishbone, I+O VS, Fishbone, I+O Vital Signs Date Time Temp Pulse Resp B/P (MAP) Pulse Ox O2 Delivery O2 Flow Rate FiO2 04/28/19 16:00 98.0 82 18 128/60 (82) 95 I&O- Last 24 Hours up to 6 AM 04/28/19 06:00 Intake Total 2050 ml Output Total 100 ml Balance 1950 ml MATI COOPER MD Apr 28, 2019 18:50
[2019-04-28 20:00] VITALS: BP 123/66
[2019-04-28] MEDS: ALLOPURINOL 300 MG TAB PO SCH (20:54)
[2019-04-28] MEDS: LOSARTAN 50 MG TAB PO SCH (20:55)
[2019-04-28] MEDS: DONEPEZIL 5 MG TAB PO SCH (20:55)
[2019-04-28] MEDS: DIGOXIN 0.125 MG TAB PO SCH (20:56)
[2019-04-28] MEDS: SIMVASTATIN 20 MG TAB PO SCH (20:56)
[2019-04-28] MEDS: amLODIPine 5 MG TAB PO SCH (20:57)
[2019-04-28] MEDS: SODIUM CHLORIDE 0.9% INJ 10 ML SYR IV PRN (21:00)
[2019-04-28] MEDS: LATANOPROST 0.005% OPHTH SOLN 2.5 ML OU SCH (21:14)
[2019-04-29] VITALS (7 sets, daily range): BP systolic 107–151; BP diastolic 64–80
[2019-04-29] MEDS: LevoFLOXacin 500 MG TABLET PO SCH (05:49)
[2019-04-29] MEDS: metroNIDAZOLE (FLAGYL) 500 MG TAB PO SCH ×3 (05:49→21:12)
[2019-04-29] MEDS: HumaLOG INSULIN (NovoLOG) PER UNIT SC SCH ×4 (07:30→21:00)
[2019-04-29] MEDS: METOPROLOL TART 50 MG TAB PO SCH ×2 (09:53→21:13)
[2019-04-29] MEDS: DOCUSATE SODIUM 100 MG CAP PO SCH (09:53)
[2019-04-29] MEDS: HEPARIN SOD (PORCINE) 5000 UNITS/ML VIAL SQ SCH ×2 (09:53→21:16)
[2019-04-29] MEDS: OMEPRAZOLE 20 MG CAP PO SCH (09:53)
[2019-04-29] MEDS: ASPIRIN 81 MG ENTERIC TAB PO SCH (09:54)
[2019-04-29] MEDS: SODIUM CHLORIDE 0.9% INJ 10 ML SYR IV SCH (09:56)
[2019-04-29] MEDS: SIMVASTATIN 20 MG TAB PO SCH (21:14)
[2019-04-29] MEDS: LOSARTAN 50 MG TAB PO SCH (21:14)
[2019-04-29] MEDS: DIGOXIN 0.125 MG TAB PO SCH (21:15)
[2019-04-29] MEDS: amLODIPine 5 MG TAB PO SCH (21:15)
[2019-04-29] MEDS: ALLOPURINOL 300 MG TAB PO SCH (21:15)
[2019-04-29] MEDS: DONEPEZIL 5 MG TAB PO SCH (21:15)
[2019-04-29] MEDS: LATANOPROST 0.005% OPHTH SOLN 2.5 ML OU SCH (21:16)
[2019-04-30 04:00] VITALS: BP 135/73
--- NOTE | 2019-04-30 04:50 | IPNPDOC ---
Text Note Date of Service The patient was seen on 04/29/19. NOTE Pt was seen and examined at bedside. Pt with flat mood. Denies any complaints. Pt is concerned about prognosis of his condition. Reassurance was given. Subjective: General: Reports: Normal Appetite; Denies: Chills, Night Sweats, Fatigue, Malaise Constitutional: Denies: Chills, Fever, Night Sweats Eyes: Denies: Pain, Vision change ENT: Denies: Head Aches, Ear Pain, Dysphagia Skin: Denies: Rash, Lesions, Breakdown Pulmonary: Denies: Dyspnea, Cough Cardiovascular: Denies: Chest Pain, Palpitations, Orthopnea, Paroxysmal Noc. Dyspnea, Lt Headedness Gastrointestinal: Denies: Nausea, Vomiting, Abdominal Pain, Diarrhea, Constipation Genitourinary: Denies: Dysuria, Frequency, Incontinence, Retention Physical Examination General Exam: Positive: Alert, Cooperative, No Acute Distress ENT Exam: Positive: Atraumatic, Mucous membr. moist/pink Chest Exam: Positive: Clear to auscultation, Normal air movement Heart Exam: Positive: Rate Normal, Normal S1, Normal S2 Abdomen Exam: Positive: Soft, Other (+PEG Tube, active bowel sounds. No bleeding noted from site); Negative: Tenderness Extremity Exam: Negative: Tenderness, Swelling Vital Signs Date Time Temp Pulse Resp B/P (MAP) Pulse Ox O2 Delivery O2 Flow Rate FiO2 04/30/19 04:00 98.7 76 20 135/73 (93) 95 04/29/19 23:59 98.0 81 16 121/71 (88) 94 04/29/19 21:15 72 04/29/19 21:15 72 117/67 04/29/19 21:14 117/67 04/29/19 21:13 78 117/67 04/29/19 20:00 98.0 72 16 117/67 (84) 95 04/29/19 16:00 99.1 86 18 115/65 (82) 95 04/29/19 12:00 98.3 94 19 131/66 (87) 95 04/29/19 09:53 107 107/64 04/29/19 08:00 97.4 107 21 107/64 (78) 95 Intake & Output 04/30/19 06:00 Intake Total 1820 ml Output Total 800 ml Balance 1020 ml Laboratory Tests 04/29/19 05:51: Bedside Glucose (Misc Panel) 92 04/29/19 12:02: Bedside Glucose (Misc Panel) 95 04/29/19 16:42: Bedside Glucose (Misc Panel) 108 04/29/19 21:09: Bedside Glucose (Misc Panel) 144H Current Medications Medications (Trade) Dose Ordered Sig/Perla Route PRN Reason Start Time Stop Time Status Last Admin Dose Admin Acetaminophen (Tylenol Tab) 650 mg Q4HP PRN PO PAIN OR FEVER 04/20/19 17:00 04/22/19 15:04 650 MG Allopurinol (Zyloprim) 300 mg QHS PO 04/21/19 21:00 04/29/19 21:15 300 MG Amlodipine Besylate (Norvasc) 5 mg QHS PO 04/21/19 21:00 04/29/19 21:15 5 MG Digoxin (Lanoxin) 0.125 mg QHS PO 04/21/19 21:00 04/29/19 21:15 0.125 MG Docusate Sodium (Colace) 100 mg DAILY PO 04/21/19 09:00 04/29/19 09:53 100 MG Donepezil HCl (AriCEPT) 5 mg QHS PO 04/21/19 21:00 04/29/19 21:15 5 MG Heparin Sodium (Heparin (Flush)) 500 units ASDIRECTED PRN IV SEE LABEL COMMENTS 04/23/19 05:15 04/26/19 05:03 500 UNITS Heparin Sodium (Porcine) (Heparin) 5,000 units Q12H SQ 04/19/19 21:00 04/29/19 21:16 5,000 UNITS Insulin Human Lispro (HumaLOG INSULIN) SEE PROTOCOL TABLE AC SC 04/21/19 17:30 04/29/19 17:42 2 UNITS Latanoprost (Xalatan 0.005% Op Soln) 1 drop QHS OU 04/20/19 21:00 04/29/19 21:16 1 DROP Losartan Potassium (Cozaar) 50 mg QHS PO 04/21/19 21:00 04/29/19 21:14 50 MG Metoprolol Tartrate (Lopressor) 50 mg BID PO 04/21/19 09:00 04/29/19 21:13 50 MG Metronidazole (Flagyl) 500 mg Q8H PO 04/22/19 14:00 6/9/19 21:12 500 MG Simvastatin (Zocor) 20 mg QHS PO 04/21/19 21:00 04/29/19 21:14 20 MG Sodium Chloride (Saline Lock Flush) 10 ml ASDIRECTED PRN IV SEE LABEL COMMENTS 04/23/19 05:15 04/28/19 21:00 10 ML Assessment Pt is 78 y/o M with Hx of esophageal ca s/p stent placement , admitted due to displacement of the stent. Pt underwent new stent placement along with PEG tube during current admission. Pt is tolerating PEG feeding well. SW/CM on board for disposition as pt is optimized clinically for discharge. Discussed with Dr. Ella Turcios from oncology regarding further plans for cancer targeted therapy. Dr. Turcios on board to discuss with family and SW regarding their wishes as far as further chemotherapy versus comfort care measures. Will continue current supportive care , no change in meds. Cont tube feeding. Pt can receive meds via PEG tube. All meds switched to be received via PEG. VS,Fishbone, I+O VS, Fishbone, I+O Vital Signs Date Time Temp Pulse Resp B/P (MAP) Pulse Ox O2 Delivery O2 Flow Rate FiO2 04/30/19 04:00 98.7 76 20 135/73 (93) 95 I&O- Last 24 Hours up to 6 AM 04/30/19 06:00 Intake Total 1820 ml Output Total 800 ml Balance 1020 ml MATI COOPER MD Apr 30, 2019 04:50
[2019-04-30] MEDS: metroNIDAZOLE (FLAGYL) 500 MG TAB PO SCH ×3 (06:01→21:24)
[2019-04-30] MEDS: HumaLOG INSULIN (NovoLOG) PER UNIT SC SCH ×4 (07:30→20:48)
[2019-04-30 08:00] VITALS: BP 119/80
[2019-04-30] MEDS: DOCUSATE SODIUM 100 MG CAP PO SCH (10:32)
[2019-04-30] MEDS: LANSOPRAZOLE SUSPENSION 30 MG/10 ML ORAL SYRINGE (FIRST-LANSOPRAZOLE) GT SCH (10:32)
[2019-04-30] MEDS: ASPIRIN 81 MG CHEW TABLET GT SCH (10:32)
[2019-04-30] MEDS: METOPROLOL TART 50 MG TAB PO SCH ×2 (10:32→21:23)
[2019-04-30] MEDS: HEPARIN SOD (PORCINE) 5000 UNITS/ML VIAL SQ SCH ×2 (10:33→21:24)
[2019-04-30] MEDS: SODIUM CHLORIDE 0.9% INJ 10 ML SYR IV SCH (10:33)
[2019-04-30 12:00] VITALS: BP 100/62
--- NOTE | 2019-04-30 15:23 | IPNPDOC ---
Text Note Date of Service The patient was seen on 04/30/19. NOTE Pt was seen and examined at bedside. Pt able to tolerate tube feed via PEG tube. Denies any pain. Pt states would like to involve his sons in deciding how to proceed with his cancer care. He states "I am not clear in my mind I would like my sons to decide for me." Subjective: General: Reports: Normal Appetite; Denies: Chills, Night Sweats, Fatigue, Malaise Constitutional: Denies: Chills, Fever, Night Sweats Eyes: Denies: Pain, Vision change ENT: Denies: Head Aches, Ear Pain, Dysphagia Skin: Denies: Rash, Lesions, Breakdown Pulmonary: Denies: Dyspnea, Cough Cardiovascular: Denies: Chest Pain, Palpitations, Orthopnea, Paroxysmal Noc. Dyspnea, Lt Headedness Gastrointestinal: Denies: Nausea, Vomiting, Abdominal Pain, Diarrhea, Constipation Genitourinary: Denies: Dysuria, Frequency, Incontinence, Retention Physical Examination General Exam: Positive: Alert, Cooperative, No Acute Distress ENT Exam: Positive: Atraumatic, Mucous membr. moist/pink Chest Exam: Positive: Clear to auscultation, Normal air movement Heart Exam: Positive: Rate Normal, Normal S1, Normal S2 Abdomen Exam: Positive: Soft, Other (+PEG Tube, active bowel sounds. No bleeding noted from site); Negative: Tenderness Extremity Exam: Negative: Tenderness, Swelling Vital Signs Date Time Temp Pulse Resp B/P (MAP) Pulse Ox O2 Delivery O2 Flow Rate FiO2 04/30/19 12:00 99.0 102 18 100/62 (75) 93 04/30/19 08:00 98.3 88 18 119/80 (93) 94 04/30/19 04:00 98.7 76 20 135/73 (93) 95 04/29/19 23:59 98.0 81 16 121/71 (88) 94 04/29/19 21:15 72 04/29/19 21:15 72 117/67 04/29/19 21:14 117/67 04/29/19 21:13 78 117/67 04/29/19 20:00 98.0 72 16 117/67 (84) 95 04/29/19 16:00 99.1 86 18 115/65 (82) 95 Intake & Output 04/30/19 06:00 Intake Total 1970 ml Output Total 1050 ml Balance 920 ml Laboratory Tests 04/29/19 16:42: Bedside Glucose (Misc Panel) 108 04/29/19 21:09: Bedside Glucose (Misc Panel) 144H 04/30/19 05:55: Bedside Glucose (Misc Panel) 86 04/30/19 12:10: Bedside Glucose (Misc Panel) 122H Current Medications Medications (Trade) Dose Ordered Sig/Perla Route PRN Reason Start Time Stop Time Status Last Admin Dose Admin Acetaminophen (Tylenol Tab) 650 mg Q4HP PRN PO PAIN OR FEVER 04/20/19 17:00 04/22/19 15:04 650 MG Allopurinol (Zyloprim) 300 mg QHS PO 04/21/19 21:00 04/29/19 21:15 300 MG Amlodipine Besylate (Norvasc) 5 mg QHS PO 04/21/19 21:00 04/29/19 21:15 5 MG Aspirin (Aspirin Chewable) 81 mg DAILY GT 04/30/19 09:00 04/30/19 10:32 81 MG Digoxin (Lanoxin) 0.125 mg QHS PO 04/21/19 21:00 04/29/19 21:15 0.125 MG Docusate Sodium (Colace) 100 mg DAILY PO 04/21/19 09:00 04/30/19 10:32 100 MG Donepezil HCl (AriCEPT) 5 mg QHS PO 04/21/19 21:00 04/29/19 21:15 5 MG Heparin Sodium (Heparin (Flush)) 500 units ASDIRECTED PRN IV SEE LABEL COMMENTS 04/23/19 05:15 04/26/19 05:03 500 UNITS Heparin Sodium (Porcine) (Heparin) 5,000 units Q12H SQ 04/19/19 21:00 04/30/19 10:33 5,000 UNITS Insulin Human Lispro (HumaLOG INSULIN) SEE PROTOCOL TABLE AC SC 04/21/19 17:30 04/29/19 17:42 2 UNITS Lansoprazole (First-Lansoprazole Oral Suspension) 30 mg DAILY GT 04/30/19 09:00 04/30/19 10:32 30 MG Latanoprost (Xalatan 0.005% Op Soln) 1 drop QHS OU 04/20/19 21:00 04/29/19 21:16 1 DROP Losartan Potassium (Cozaar) 50 mg QHS PO 04/21/19 21:00 04/29/19 21:14 50 MG Metoprolol Tartrate (Lopressor) 50 mg BID PO 04/21/19 09:00 04/30/19 10:32 50 MG Metronidazole (Flagyl) 500 mg Q8H PO 04/22/19 14:00 04/30/19 14:00 500 MG Simvastatin (Zocor) 20 mg QHS PO 04/21/19 21:00 04/29/19 21:14 20 MG Sodium Chloride (Saline Lock Flush) 10 ml ASDIRECTED PRN IV SEE LABEL COMMENTS 04/23/19 05:15 04/28/19 21:00 10 ML Assessment Pt is 78 y/o M with Hx of esophageal ca s/p stent placement , admitted due to displacement of the stent. Pt underwent new stent placement along with PEG tube during current admission. Pt is tolerating PEG feeding well. SW/CM on board for disposition as pt is optimized clinically for discharge. Discussed with Dr. Ella Turcios from oncology regarding further plans for cancer targeted therapy. Dr. Turcios on board to discuss with family and SW regarding their wishes as far as further chemotherapy versus comfort care measures. Will continue current supportive care , no change in meds. Cont tube feeding. Pt can receive meds via PEG tube. All meds switched to be received via PEG. Pt is awaiting placement. VS,Fishbone, I+O VS, Fishbone, I+O Vital Signs Date Time Temp Pulse Resp B/P (MAP) Pulse Ox O2 Delivery O2 Flow Rate FiO2 04/30/19 12:00 99.0 102 18 100/62 (75) 93 I&O- Last 24 Hours up to 6 AM 04/30/19 06:00 Intake Total 1970 ml Output Total 1050 ml Balance 920 ml MATI COOPER MD Apr 30, 2019 15:22
[2019-04-30 15:43] VITALS: BP 111/72
[2019-04-30 16:00] VITALS: BP 110/76
[2019-04-30] MEDS: amLODIPine 5 MG TAB PO SCH (21:23)
[2019-04-30] MEDS: DONEPEZIL 5 MG TAB PO SCH (21:24)
[2019-04-30] MEDS: ALLOPURINOL 300 MG TAB PO SCH (21:25)
[2019-04-30] MEDS: SIMVASTATIN 20 MG TAB PO SCH (21:25)
[2019-04-30] MEDS: LOSARTAN 50 MG TAB PO SCH (21:25)
[2019-04-30] MEDS: DIGOXIN 0.125 MG TAB PO SCH (21:25)
[2019-04-30] MEDS: LATANOPROST 0.005% OPHTH SOLN 2.5 ML OU SCH (21:28)
[2019-04-30 22:00] VITALS: BP 114/67
[2019-05-01 02:00] VITALS: BP 122/86
[2019-05-01] MEDS: metroNIDAZOLE (FLAGYL) 500 MG TAB PO SCH ×2 (05:16→13:55)
[2019-05-01 06:00] VITALS: BP 118/77
[2019-05-01] MEDS: HumaLOG INSULIN (NovoLOG) PER UNIT SC SCH ×4 (06:47→20:31)
[2019-05-01] MEDS: ASPIRIN 81 MG CHEW TABLET GT SCH (09:03)
[2019-05-01] MEDS: HEPARIN SOD (PORCINE) 5000 UNITS/ML VIAL SQ SCH ×2 (09:03→20:44)
[2019-05-01] MEDS: METOPROLOL TART 50 MG TAB PO SCH ×2 (09:03→20:45)
[2019-05-01] MEDS: DOCUSATE SODIUM 100 MG CAP PO SCH (09:03)
[2019-05-01] MEDS: LANSOPRAZOLE SUSPENSION 30 MG/10 ML ORAL SYRINGE (FIRST-LANSOPRAZOLE) GT SCH (09:03)
[2019-05-01] MEDS: SODIUM CHLORIDE 0.9% INJ 10 ML SYR IV SCH (09:04)
[2019-05-01 10:00] VITALS: BP 115/64
[2019-05-01 14:00] VITALS: BP 113/71
--- NOTE | 2019-05-01 15:27 | IPNPDOC ---
Subjective Date Seen The patient was seen on 05/01/19. Subjective Chief Complaint/HPI Patient seen and examined at the bedside. No acute overnight events noted. The patient's son, Son was sitting at the bedside, and Mr. Whitmore's case was discussed in depth. All questions were answered to his satisfaction. Objective Physical Examination General Exam: Positive: Alert, Cooperative, No Acute Distress ENT Exam: Positive: Atraumatic, Mucous membr. moist/pink Chest Exam: Positive: Clear to auscultation, Normal air movement Heart Exam: Positive: Rate Normal, Normal S1, Normal S2 Abdomen Exam: Positive: Soft, Other (+PEG Tube, active bowel sounds. 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 Arroyo of GI Aspiration PNA 2/2 Above s/p Levaquin, Flagyl course Persistent Leukocytosis Clinically patient is feeling well, and is not displaying any worsening symptoms Has remained afebilre Possibly 2/2 Underlying Metastatic Ca? 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 Turcios of Oncology as outpatient, and she did speak to my colleague (Dr. Yeh) about the current clinical condition of Mr. Whitmore Hx of Hypertension Continue losartan, metoprolol, norvasc Dyslipidemia Continue statin Diabetes mellitus Insulin sliding scale ordered Aortic insufficiency status post AVR Follow-up as outpatient Gout Continue allopurinol GERD Continue omeprazole DVT Prophylaxis--Heparin SC Disposition-Patient/Family deciding on Comfort Measures Only and Hospice House. We will follow up with PFS. VS, I&O, 24H, Fishbone Vital Signs/I&O Vital Signs Date Time Temp Pulse Resp B/P (MAP) Pulse Ox O2 Delivery O2 Flow Rate FiO2 05/01/19 14:00 97.8 83 18 113/71 (85) 92 I&O- Last 24 Hours up to 6 AM 05/01/19 06:00 Intake Total 1950 ml Output Total 1145 ml Balance 805 ml Laboratory Data 24H LABS Laboratory Tests 2 04/30/19 16:54: Bedside Glucose (Misc Panel) 165H 04/30/19 20:08: Bedside Glucose (Misc Panel) 161H 05/01/19 06:29: Bedside Glucose (Misc Panel) 99 05/01/19 11:29: Bedside Glucose (Misc Panel) 134H KAYLAN LYMAN MD May 01, 2019 15:27
[2019-05-01] MEDS: LOSARTAN 50 MG TAB PO SCH (20:44)
[2019-05-01] MEDS: DONEPEZIL 5 MG TAB PO SCH (20:45)
[2019-05-01] MEDS: SIMVASTATIN 20 MG TAB PO SCH (20:45)
[2019-05-01] MEDS: DIGOXIN 0.125 MG TAB PO SCH (20:45)
[2019-05-01] MEDS: LATANOPROST 0.005% OPHTH SOLN 2.5 ML OU SCH (20:46)
[2019-05-01] MEDS: ALLOPURINOL 300 MG TAB PO SCH (20:46)
[2019-05-01] MEDS: amLODIPine 5 MG TAB PO SCH (20:46)
[2019-05-01 22:00] VITALS: BP 127/78
[2019-05-02 02:00] VITALS: BP 121/69
[2019-05-02 06:00] VITALS: BP 146/87
[2019-05-02] MEDS: HumaLOG INSULIN (NovoLOG) PER UNIT SC SCH ×4 (07:30→20:51)
[2019-05-02] MEDS: SODIUM CHLORIDE 0.9% INJ 10 ML SYR IV SCH (09:00)
[2019-05-02] MEDS: DOCUSATE SODIUM 100 MG CAP PO SCH ×2 (09:00→10:16)
[2019-05-02 10:00] VITALS: BP 124/83
[2019-05-02] MEDS: HEPARIN SOD (PORCINE) 5000 UNITS/ML VIAL SQ SCH ×2 (10:16→20:51)
[2019-05-02] MEDS: LANSOPRAZOLE SUSPENSION 30 MG/10 ML ORAL SYRINGE (FIRST-LANSOPRAZOLE) GT SCH (10:16)
[2019-05-02] MEDS: ASPIRIN 81 MG CHEW TABLET GT SCH (10:16)
[2019-05-02] MEDS: METOPROLOL TART 50 MG TAB PO SCH ×2 (10:25→20:50)
--- NOTE | 2019-05-02 11:43 | IPNPDOC ---
Subjective Date Seen The patient was seen on 05/02/19. Subjective Chief Complaint/HPI Patient seen and examined at the bedside. No acute overnight events noted. Objective Physical Examination General Exam: Positive: Alert, Cooperative, No Acute Distress ENT Exam: Positive: Atraumatic, Mucous membr. moist/pink Chest Exam: Positive: Clear to auscultation, Normal air movement Heart Exam: Positive: Rate Normal, Normal S1, Normal S2 Abdomen Exam: Positive: Soft, Other (+PEG Tube, active bowel sounds. 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 Arroyo of GI Aspiration PNA 2/2 Above s/p Levaquin, Flagyl course Persistent Leukocytosis Clinically patient is feeling well, and is not displaying any worsening symptoms Has remained afebilre Possibly 2/2 Underlying Metastatic Ca? 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 Turcios of Oncology as outpatient, I spoke to Dr. Turcios via telephone and discussed the case extensively on 05/01, she agrees that Hospice is appropriate for this patient at this time, as he is not currently a candidate for any further chemotherapeutic treatment given his functional decline. Hx of Hypertension Continue losartan, metoprolol, norvasc Dyslipidemia Continue statin Diabetes mellitus Insulin sliding scale ordered Aortic insufficiency status post AVR Follow-up as outpatient Gout Continue allopurinol GERD Continue omeprazole DVT Prophylaxis--Heparin SC Disposition-Patient/Family deciding on Comfort Measures Only and Hospice House. We will follow up with PFS. VS, I&O, 24H, Fishbone Vital Signs/I&O Vital Signs Date Time Temp Pulse Resp B/P (MAP) Pulse Ox O2 Delivery O2 Flow Rate FiO2 05/02/19 10:25 72 125/74 05/02/19 10:00 98.0 18 92 I&O- Last 24 Hours up to 6 AM 05/02/19 06:00 Intake Total 1816 ml Output Total 1300 ml Balance 516 ml Laboratory Data 24H LABS Laboratory Tests 2 05/01/19 16:34: Bedside Glucose (Misc Panel) 98 05/01/19 20:22: Bedside Glucose (Misc Panel) 111H 05/02/19 06:07: Bedside Glucose (Misc Panel) 92 05/02/19 11:28: Bedside Glucose (Misc Panel) 132H KAYLAN LYMAN MD May 02, 2019 11:43
[2019-05-02 14:00] VITALS: BP 120/75
[2019-05-02 18:00] VITALS: BP_SYST 126; BP_SYST 143; BP_DIAS 69; BP_DIAS 80
[2019-05-02] MEDS: SIMVASTATIN 20 MG TAB PO SCH (20:50)
[2019-05-02] MEDS: amLODIPine 5 MG TAB PO SCH (20:50)
[2019-05-02] MEDS: DIGOXIN 0.125 MG TAB PO SCH (20:50)
[2019-05-02] MEDS: ALLOPURINOL 300 MG TAB PO SCH (20:50)
[2019-05-02] MEDS: DONEPEZIL 5 MG TAB PO SCH (20:51)
[2019-05-02] MEDS: LOSARTAN 50 MG TAB PO SCH (20:51)
[2019-05-02] MEDS: LATANOPROST 0.005% OPHTH SOLN 2.5 ML OU SCH (20:51)
[2019-05-02 22:00] VITALS: BP 124/72
[2019-05-03 02:00] VITALS: BP 122/76
[2019-05-03 06:00] VITALS: BP 126/68
[2019-05-03] MEDS: ASPIRIN 81 MG CHEW TABLET GT SCH (07:53)
[2019-05-03 07:54] VITALS: BP 128/68
[2019-05-03] MEDS: METOPROLOL TART 50 MG TAB PO SCH (07:54)
[2019-05-03] MEDS: HEPARIN SOD (PORCINE) 5000 UNITS/ML VIAL SQ SCH (07:58)
[2019-05-03] MEDS: HumaLOG INSULIN (NovoLOG) PER UNIT SC SCH (07:58)
[2019-05-03] MEDS: SODIUM CHLORIDE 0.9% INJ 10 ML SYR IV SCH (07:59)
[2019-05-03] MEDS: LANSOPRAZOLE SUSPENSION 30 MG/10 ML ORAL SYRINGE (FIRST-LANSOPRAZOLE) GT SCH (07:59)
[2019-05-03] MEDS: DOCUSATE SODIUM 100 MG CAP PO SCH (08:05)
[2019-05-03 10:00] VITALS: BP 130/84
[2019-05-03] MEDS ORDERED: LORA0.5T11 PO (11:31)
[2019-05-03] MEDS ORDERED: MORP20SO3 PO (11:31)
[2019-05-03] MEDS ORDERED: HYOS125TA PO (11:31)
--- NOTE | 2019-05-03 18:01 | DS.PDOC ---
Discharge Summary General Date of Admission April 19, 2019 at 12:01 Date of Discharge 05/03/19 Specialist/Consultants Involve Dr. Arroyo of [facility] Discharge Summary PROCEDURES PERFORMED DURING STAY: s/p palliative stenting, PEG tube placement on 04/20/[address] 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 HISTORY OF PRESENT ILLNESS: . 78-year-old male with past medical history of hypertension, dyslipidemia, diabetes mellitus, aortic insufficiency status post AVR, gout, GERD, and recent diagnosis of stage IV poorly differentiated esophageal adenocarcinoma with metastases to the liver s/p 1 cycle of palliative oxaliplatin on 03/22/19 and recent Esophageal stent placement on 04/11/[address] Blanca presented to the ER with a chief complaint of inability to take in by mouth diet. The patient stated that he tried eating applesauce, and liquids, and he had been unable to keep anything down. He stated that he had been throwing up right away. Also of note, the patient does endorse that he tried eating a hamburger a few days ago as well. He notes that he usually throws up undigested food particles shortly af ter eating. He denies any complaints of fevers, chills, chest pain, palpitations, shortness breath, abdominal pain, or any diarrhea. In the ER, a CT scan of the neck revealed superior migration of an esophageal stent with proximal stent present at the T1-[address] Blanca GI was contacted and saw the patient in consultation. The patient was admitted under the hospitalist service for further evaluation and management. During hospitalization, the patient did have esophageal stent exchange with PEG tube placement on 04/20/19 by . In addition, the patient was treated for aspiration pneumonia. Unfortunately, the patient's clinical condition did not significantly improve, as he continued to functionally decline. Dr. Turcios of oncology did speak to the patient and his family as well. I discussed the case with her in addition, and it was felt that hospice was the best choice for the patient given his clinical condition and poor prognosis. The patient and his family agreed to the same, and the patient will be transferred to the hospice house today. DISCHARGE MEDICATIONS: Please see below. ALLERGIES: Please see below. PHYSICAL EXAMINATION ON DISCHARGE: VITAL SIGNS: Please see below. General Exam: Positive: Alert, Cooperative, No Acute Distress ENT Exam: Positive: Atraumatic, Mucous membr. moist/pink Chest Exam: Positive: Clear to auscultation, Normal air movement Heart Exam: Positive: Rate Normal, Normal S1, Normal S2 Abdomen Exam: Positive: Soft, Other (+PEG Tube, active bowel sounds. No bleeding noted from site); Negative: Tenderness Extremity Exam: Negative: Tenderness, Swelling LABORATORY DATA: Please see below. IMAGING: CT NECK WITHOUT CONTRAST: HISTORY: Esophageal stent migration. Residual contrast material is present in the mehul- and hypopharynx and esophagus from a recent barium swallow. The naso-, mehul- and hypopharynx, larynx and subglottic trachea are normal in appearance. The salivary and thyroid glands are normal in size and density. Small lymph nodes less than 1 cm in size are present in the internal jugular chains, posterior triangles and submandibular areas. Atherosclerotic calcification is present at the carotid bifurcations. Degenerative change is present in the cervical spine. The lung apices are clear. An esophageal stent is present. There has been superior migration of the stent. The proximal stent is present in the esophagus at the T1-2 level. The visualized sinuses are clear. IMPRESSION: 1. There is no neck mass or adenopathy. 2. There has been superior migration of an esophageal stent with the proximal stent present at the T1-[address] chest without contrast: History: Malignant neoplasm middle third of the esophagus. Esophageal stent migration. Comparison chest CT study March 13, 2019. Comparison is made with recent esophagram images the findings of which are familiar to me. 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 On axial CT images this contrast can be seen partially filling the right lateral portion of the dilated esophagus. There is ingested material and air surrounding and within the proximal portion of the esophageal stent. The esophageal stent terminates at the level of the avelina at what appears to be upper margin of the esophageal mass lesion seen on CT study March 13, 2019. There is no evidence of mediastinal perforation or contrast extravasation. A right-sided [id number] catheter is seen in place in the superior vena cava. Right subcarinal mediastinal adenopathy is again seen unchanged from the recent prior study. No new adenopathy. There are granulomatous calcifications in the liver. Small gallstones are visible. There are granulomatous calcifications in the spleen. No adrenal lesion is seen. There is an infiltrate in the left lower lobe of the lung which is new. This may reflect aspiration pneumonia. There is some bronchiectasis in the lower lobes bilaterally. No pleural or pericardial effusion is seen. No bony destructive lesion. Impression: Findings consistent with proximal migration of the esophageal stent to this level of the superior margin of the malignant esophageal lesion. The esophagus is dilated around the proximal portion of the stent and contains ingested material. The lumen of the stent is filled with ingested material as well. There is no evidence of perforation or mediastinal air or fluid. There is a small infiltrate in the left lower lobe consistent with aspiration pneumonia. PROGNOSIS: Poor long-term prognosis ACTIVITY: As tolerated. DIET: As tolerated DISCHARGE PLAN: DISPOSITION: [facility]ospice Medical Facility. DISCHARGE INSTRUCTIONS: Follow-up at the hospice house DISCHARGE CONDITION: Stable. TIME SPENT ON DISCHARGE: Greater than 30 minutes. Vital Signs/I&Os Vital Signs Date Time Temp Pulse Resp B/P (MAP) Pulse Ox O2 Delivery O2 Flow Rate FiO2 05/03/19 10:00 97.7 90 19 130/84 (99) 90 I&O- Last 24 Hours up to 6 AM 05/03/19 06:00 Intake Total 2086 ml Output Total 1000 ml Balance 1086 ml Laboratory Data Labs 24H Laboratory Tests 2 05/02/19 20:34: Bedside Glucose (Misc Panel) 145H 05/03/19 05:38: Bedside Glucose (Misc Panel) 103 05/03/19 11:48: Bedside Glucose (Misc Panel) 111H FSBS Laboratory Tests Test 05/02/19 20:34 05/03/19 05:38 05/03/19 11:48 Range/Units Bedside Glucose (Misc Panel) 145 103 111 83-110 MG/DL Discharge Medications Scheduled PRN Hyoscyamine Sulfate (Hyoscyamine Sulfate) 0.125 Mg Tab.subl, 0.125 MG PO Q4HP PRN for TERMINAL SECRETIONS Use sublingually if unable to swallow Lorazepam (Lorazepam) 0.5 Mg Tablet, 0.5 MG PO Q4HP PRN for ANXIETY/AGITATION Use sublingually if unable to swallow Morphine Sulfate (Morphine Sulfate) 100 Mg/5 Ml Solution, 0.25-1 ML PO Q2H PRN for PAIN OR DYSPNEA Use sublingually if unable to swallow Allergies Coded Allergies: [place] (Verified Allergy, Severe, SWELLING AND RASH, 04/19/19) Penicillins (Verified Allergy, Unknown, 04/11/19) morphine (Verified Allergy, Unknown, 04/11/19) KAYLAN LYMAN MD May 03, 2019 18:01
== END 2019-05-03 12:36 | disposition hospice, inpatient (51) | DRG 919 ==
LOC: M ED 08:37 → M ED INP 12:01 → M PCU 14:08 → M MSPAV 04-30 15:32
PROVIDERS: ADMIT Internal Medicine; ATTEND Internal Medicine
PROC: 0DH64UZ Insertion of Feeding Device into Stomach, Percutaneous Endoscopic Approach (ICD-10-PCS; principal; 2019-04-20 12:00)
DX: T85.591A Other mechanical complication of esophageal anti-reflux device, initial encounter (principal); J69.0 Pneumonitis due to inhalation of food and vomit; C15.4 Malignant neoplasm of middle third of esophagus; C78.7 Secondary malignant neoplasm of liver and intrahepatic bile duct; E78.5 Hyperlipidemia, unspecified; K21.9 Gastro-esophageal reflux disease without esophagitis; M10.9 Gout, unspecified; I10 Essential (primary) hypertension; Z88.0 Allergy status to penicillin; Z88.5 Allergy status to narcotic agent; Z91.010 Allergy to peanuts; Z79.899 Other long term (current) drug therapy; R13.10 Dysphagia, unspecified; D72.829 Elevated white blood cell count, unspecified; Y83.8 Other surgical procedures as the cause of abnormal reaction of the patient, or of later complication, without mention of misadventure at the time of the procedure

== ENCOUNTER → 2019-04-19 | Outpatient (CLI) | payer MEDICARE ==
[~2019-04-19] MED LIST changes: -ACETAMINOPHEN 650 MG SUPP PR ONE; +BIMA01SOL OU; -D5W IV ONE; +DONE5TAB82 PO; +E-Z-GAS II EFFERVESCENT PACKET (SODIUM BICARB./CITRIC ACID/SIMETHICONE) As Ordered ONE; +E-Z-HD 98% w/w 340GM SUSP BTL As Ordered ONE; +E-Z-PAQUE 96% w/w SUSP 176GM BTL As Ordered ONE; -FLUOROURACIL IV ONE; -FOSAPREPITANT PERIPHERAL LINE 30 MIN INFUSION (PREMIX) IV ONE; -FOSAPREPITANT PERIPHERAL LINE 30 MIN INFUSION IV ONE; -KCL 10MEQ IN D5/0.45NS 1000ML 1,000 ML IV ONE; -LEUCOVORIN CALCIUM IV ONE; +METF-839 PO; -NS 1,000 ML IV ONE; +OMEP-221 PO; -OXALIPLATIN IV ONE; -PALONOSETRON 250 MCG IV IV ONE; +PATIENT COMMENT; -PEGFILGRASTIM 6MG/0.6ML ONPRO KIT (J2505 PER 6MG) (FOR ONCOLOGY) SC ONE; -SODIUM CHLORIDE 0.9% INJ 10 ML SYR IV PRN; -SODIUM CHLORIDE IV ONE; -dexameTHASONE 10 MG IV IV ONE
--- NOTE | 2019-04-19 09:00 | REP ---
Single contrast esophagram: History: Dysphagia. The patient is 1 week status post esophageal stent placement for mid esophageal malignancy. Comparison is made with chest x-ray from April 18, 2019, and pre-stent esophagram from April 06, 2019. Stent placement fluoroscopic images are also reviewed from April 11, 2019. Images were telephoned to and reviewed at the workstation with the referring provider at the time of the study. The patient was initially, inadvertently released but recalled and directed to report to the emergency room for admission following this study. Findings: Prone oblique fluoroscopic images today demonstrate a complete esophageal obstruction just above the thoracic inlet at the proximal margin of the recently placed stent. Swallowed barium was partially expectorated. No aspiration was observed. An AP view of the mediastinum taken at the conclusion of the fluoroscopic portion of the study demonstrates a small quantity of barium tracking along the right lateral margin of the stent in the widened mediastinum suggesting dilated esophagus containing barium and ingested material going around the proximal portion of the stent. Comparison with pre-stent esophagram and stent placement fluoroscopic images suggest that the distal end of the stent has migrated to the proximal portion of the obstructing lesion since it is positioned higher in the esophagus than on the final post placement films. Yesterday's chest x-ray shows a somewhat widened mediastinum in this region with a mottled gas and soft tissue density consistent with ingested material in a dilated esophagus or within the mediastinum. Impression: Recurrent complete esophageal obstruction just above the thoracic inlet. Findings suggest proximal migration of the stent presumably above the level of the esophageal obstruction. There is barium coursing around the right lateral margin of the stent which is believed to be in the dilated esophagus. The possibility of perforation with mediastinal contrast is not excluded completely. Consider CT scanning. The patient is referred to the emergency room following discussion with Dr. Arroyo. Fluoroscopy time associated with this exam was 0.3 minutes. Electronically Signed by Clint Roberts MD 04/19/2019 02:32 P
== END ==
LOC: M RAD 07:28
PROVIDERS: ATTEND Internal Medicine Gastroenterology
DX: C15.4 Malignant neoplasm of middle third of esophagus (principal)